=== PATIENT | female | born 1945 | race Caucasian/White ===

== ENCOUNTER 2016-05-11 | Outpatient (CLI) | payer MEDICARE, OTHER | END 2016-05-11 10:32 | disposition home or self-care (01) | DX: Z53.9 Procedure and treatment not carried out, unspecified reason (principal) ==

== ENCOUNTER 2016-05-11 10:20 | Outpatient (CLI) | payer MEDICARE, OTHER | END 2016-05-11 10:21 | disposition home or self-care (01) | DX: E78.2 Mixed hyperlipidemia (principal); Z79.899 Other long term (current) drug therapy ==

== ENCOUNTER 2016-06-28 09:35 | Outpatient (CLI) | payer MEDICARE, OTHER | END 2016-06-28 09:36 | disposition home or self-care (01) | DX: M06.9 Rheumatoid arthritis, unspecified (principal) ==

== ENCOUNTER 2016-07-05 10:24 | Outpatient (CLI) | payer MEDICARE, OTHER | END 2016-07-05 10:25 | disposition home or self-care (01) | DX: M51.36 Other intervertebral disc degeneration, lumbar region (principal); M47.896 Other spondylosis, lumbar region; M16.0 Bilateral primary osteoarthritis of hip ==

== ENCOUNTER 2016-10-11 09:21 | Outpatient (CLI) | payer MEDICARE, OTHER ==
[2016-10-11 10:09] LABS: BASOPHILS # (AUTO) 0.1 10^3/uL (0.0-0.1); BASOPHILS % (AUTO) 1.2 %; EOSINOPHILS # (AUTO) 0.2 10^3/uL (0.0-0.7); EOSINOPHILS % (AUTO) 3.4 %; HCT - HEMATOCRIT 38.9 % (37.0-47.0); HGB - HEMOGLOBIN 13.1 g/dL (12.0-16.0); LYMPHOCYTES # (AUTO) 2.2 10^3/uL (1.5-3.5); MEAN CORPUSCULAR HEMOGLOBIN 31.5 pg (27.0-31.0); MEAN CORPUSCULAR HGB CONC 33.8 g/dL (32.0-36.0); MEAN PLATELET VOLUME 7.3 fL (7.9-10.8); MONOCYTES # (AUTO) 0.5 10^3/uL (0.0-1.0); MONOCYTES % (AUTO) 9.1 %; NEUTROPHILS # (AUTO) 2.6 10^3/uL (1.5-6.6); NEUTROPHILS % (AUTO) 47.3 %; RED BLOOD COUNT 4.18 10^6/uL (4.20-5.40); RED CELL DISTRIBUTION WIDTH 14.6 % (12.0-15.0); UNCORRECTED WHITE BLOOD COUNT 5.6 x10^3/uL; WHITE BLOOD COUNT 5.6 x10^3/uL (4.8-10.8)
[2016-10-11 10:29] LABS: ALBUMIN/GLOBULIN RATIO 1.5 (1.0-2.2); BILIRUBIN,TOTAL 0.8 mg/dL (0.2-1.0); CALCIUM 9.7 mg/dL (8.5-10.3); CREATININE 0.9 mg/dL (0.4-1.0); POTASSIUM 4.3 mmol/L (3.5-5.0)
== END 2016-10-11 09:22 | disposition home or self-care (01) ==
LOC: LAB 09:21
PROVIDERS: ATTEND Internal Medicine Rheumatology
DX: M06.9 Rheumatoid arthritis, unspecified (principal)
CPT/HCPCS: 36415; 80053; 85025

== ENCOUNTER 2017-03-01 14:52 | Outpatient (CLI) | payer MEDICARE, OTHER | END 2017-03-01 14:53 | disposition home or self-care (01) | LOC: CAM 14:52 | PROVIDERS: ATTEND Internal Medicine | DX: M54.5 Low back pain (principal) | CPT/HCPCS: 97813; 97814 ==

== ENCOUNTER 2017-03-29 12:52 | Outpatient (CLI) | payer MEDICARE, OTHER ==
--- NOTE | 2017-03-30 09:20 | DEXA Report ---
DEXA SCAN: 03/29/2017 COMPARISON: None. In accordance with the International Society for Clinical Densitometry (ISCD) guidelines, data from previous exams may be reanalyzed using current recommendations and techniques. This is done to allow a more accurate basis for comparison with the current study. INDICATION: Bone mineral density screening. TECHNIQUE: Standard DEXA evaluation of the left femur and lumbar spine. Dual energy x-ray absorptiometry (DXA) was performed on a [employer] system. FINDINGS: Total proximal femur bone mineral density measures 0.949 g/cm2, which corresponds to T-score -0.5 and Z-score 0.1. WHO classification is normal. Lumbar spine bone mineral density measures 0.986 g/cm2, which corresponds to a T -score of -1.6 and Z-score of -1.1. WHO classification is osteopenia. The data for the lumbar spine is as follows: REGION BMD (g/cm/cm) T-SCORE Z-SCORE L1 0.953 -1.5 -1.0 L2 0.960 -2.0 -1.5 L3 1.034 -1.4 -0.9 L4 0.986 -1.8 -1.3 TOTAL 0.986 -1.6 -1.1 NOTE: All evaluable vertebrae are used for classification. The data for the hip is as follows: REGION BMD (g/cm/cm) T-SCORE Z-SCORE Neck 0.978 -0.4 0.5 TOTAL 0.949 -0.5 0.1 NOTE: The femoral neck or total proximal femur, whichever is lowest, is used for classification. IMPRESSION: THE WHO CLASSIFICATION BASED ON THE INTERNATIONAL REFERENCE STANDARD IS OSTEOPENIA. THE FRACTURE RISK IS INCREASED. RECOMMENDATION: Patients with diagnosis of osteoporosis or osteopenia should have regular bone mineral density assessment. For those eligible for Medicare, routine testing is allowed once every 2 years. Testing frequency can be increased for patients who have rapidly progressing disease or for those who are receiving medical therapy to restore bone mass. COMMENT: World Health Organization (WHO) definitions for osteoporosis and osteopenia: NORMAL BMD: T-score at 1.0 or higher, fracture risk is low. OSTEOPENIA BMD: T-score between 1.0 and -2.5, fracture risk is increased. OSTEOPOROSIS BMD: T-score at 2.5 or lower, fracture risk high. National Osteoporosis Foundation recommends: 1. Obtain adequate dietary calcium (at least 1200 mg per day) and vitamin D (400 -800 international units per day). 2. Participate, as appropriate, in regular weightbearing and muscle- strengthening exercise. 3. Avoid tobacco use and reduce alcohol and caffeine intake. 4. For more detailed information see the website at www.NOF.org. MTDD
== END 2017-03-29 12:53 | disposition home or self-care (01) ==
LOC: DI 12:52
PROVIDERS: ATTEND Internal Medicine Rheumatology
DX: Z13.820 Encounter for screening for osteoporosis (principal); M85.88 Other specified disorders of bone density and structure, other site; Z79.52 Long term (current) use of systemic steroids
CPT/HCPCS: 77080

== ENCOUNTER 2017-03-29 14:04 | Outpatient (CLI) | payer MEDICARE, OTHER | END 2017-03-29 14:05 | disposition home or self-care (01) | LOC: CAM 14:04 | PROVIDERS: ATTEND Internal Medicine | DX: M54.5 Low back pain (principal) | CPT/HCPCS: 97813; 97814 ==

== ENCOUNTER 2017-04-02 09:26 | Outpatient (CLI) | payer MEDICARE, OTHER ==
[2017-04-02 09:46] LABS: BASOPHILS # (AUTO) 0.1 10^3/uL (0.0-0.1); BASOPHILS % (AUTO) 1.5 %; EOSINOPHILS # (AUTO) 0.4 10^3/uL (0.0-0.7); EOSINOPHILS % (AUTO) 5.2 %; HGB - HEMOGLOBIN 13.2 g/dL (12.0-16.0); LYMPHOCYTES # (AUTO) 3.1 10^3/uL (1.5-3.5); LYMPHOCYTES % (AUTO) 43.1 %; MEAN CORPUSCULAR HEMOGLOBIN 32.6 pg (27.0-31.0); MEAN CORPUSCULAR HGB CONC 34.8 g/dL (32.0-36.0); MEAN CORPUSCULAR VOLUME 93.8 fL (81.0-99.0); MONOCYTES # (AUTO) 0.6 10^3/uL (0.0-1.0); NEUTROPHILS # (AUTO) 2.9 10^3/uL (1.5-6.6); NEUTROPHILS % (AUTO) 41.2 %; PLT - PLATELET COUNT 238 10^3/uL (130-450); RED BLOOD COUNT 4.06 10^6/uL (4.20-5.40); RED CELL DISTRIBUTION WIDTH 14.3 % (12.0-15.0); WHITE BLOOD COUNT 7.1 x10^3/uL (4.8-10.8)
[2017-04-02 10:02] LABS: ALBUMIN 4.5 g/dL (3.2-5.5); ALBUMIN/GLOBULIN RATIO 1.7 (1.0-2.2); ALKALINE PHOSPHATASE 50 IU/L (42-121); ALT ALANINE AMINOTRANSFERASE 43 IU/L (10-60); AST ASPARTATE AMINOTRANSFERASE 47 IU/L (10-42); BILIRUBIN,TOTAL 0.8 mg/dL (0.2-1.0); BUN - BLOOD UREA NITROGEN 33 mg/dL (6-20); CALCIUM 9.8 mg/dL (8.5-10.3); CARBON DIOXIDE - CO2 20 mmol/L (21-32); CHLORIDE 100 mmol/L (101-111); CHOLESTEROL 228 mg/dL; CREATININE 1.1 mg/dL (0.4-1.0); GFR - MDRD 49 (>89); GLUCOSE 123 mg/dL (70-100); HDL CHOLESTEROL 57 mg/dL; LDL CHOLESTEROL,CALCULATED 129 mg/dL; LDL/HDL RATIO 2.3 (<4.4); SODIUM 137 mmol/L (135-145); TOTAL PROTEIN 7.2 g/dL (6.7-8.2); VLDL CHOLESTEROL 42 mg/dL
[2017-04-02 10:35] LABS: HB2 TOTAL 14.1 g/dL; HEMOGLOBIN A1C 0.55 g/dL; HEMOGLOBIN A1C % 5.7 % (4.6-6.2)
== END 2017-04-02 09:27 | disposition home or self-care (01) ==
LOC: LAB 09:26
PROVIDERS: ATTEND Internal Medicine
DX: I65.29 Occlusion and stenosis of unspecified carotid artery (principal); E11.9 Type 2 diabetes mellitus without complications; I35.0 Nonrheumatic aortic (valve) stenosis; E78.5 Hyperlipidemia, unspecified; I10 Essential (primary) hypertension
CPT/HCPCS: 36415; 80053; 80061; 83036; 84443; 85025

== ENCOUNTER 2017-04-11 08:58 | Outpatient (CLI) | payer MEDICARE, OTHER | END 2017-04-11 08:59 | disposition home or self-care (01) | LOC: LAB.R 08:58 | PROVIDERS: ATTEND Internal Medicine | DX: L03.114 Cellulitis of left upper limb (principal) | CPT/HCPCS: 87640 ==

== ENCOUNTER 2017-04-17 11:29 | Outpatient (CLI) | payer MEDICARE, OTHER ==
--- NOTE | 2017-04-17 19:38 | XRAY Report ---
DATE OF SERVICE: 04/17/2017 THREE VIEW LEFT HAND: 04/17/2017 CLINICAL INDICATION: Cellulitis. COMPARISON: 08/04/2015 Frontal, lateral, oblique views of the left hand demonstrate soft tissue swelling at the fifth metacarpophalangeal joint. Osteoarthritic changes are stable. No foreign body is seen in the soft tissues. No osteolysis is seen to suggest osteomyelitis. IMPRESSION: Soft tissue swelling, but no evidence of fracture or osteomyelitis. TD: 04/17/2017 20:37
== END 2017-04-17 11:30 | disposition home or self-care (01) ==
LOC: DI 11:29
PROVIDERS: ATTEND Internal Medicine
DX: L03.114 Cellulitis of left upper limb (principal)

== ENCOUNTER 2017-05-11 09:01 | Outpatient (CLI) | payer MEDICARE, OTHER ==
[2017-05-11 09:23] LABS: BASOPHILS % (AUTO) 0.7 %; EOSINOPHILS # (AUTO) 0.5 10^3/uL (0.0-0.7); EOSINOPHILS % (AUTO) 7.8 %; HGB - HEMOGLOBIN 13.2 g/dL (12.0-16.0); LYMPHOCYTES # (AUTO) 2.9 10^3/uL (1.5-3.5); LYMPHOCYTES % (AUTO) 44.1 %; MEAN CORPUSCULAR HEMOGLOBIN 32.6 pg (27.0-31.0); MEAN CORPUSCULAR HGB CONC 34.5 g/dL (32.0-36.0); MEAN CORPUSCULAR VOLUME 94.4 fL (81.0-99.0); MEAN PLATELET VOLUME 7.1 fL (7.9-10.8); MONOCYTES # (AUTO) 0.4 10^3/uL (0.0-1.0); MONOCYTES % (AUTO) 6.6 %; NEUTROPHILS # (AUTO) 2.6 10^3/uL (1.5-6.6); NEUTROPHILS % (AUTO) 40.8 %; PLT - PLATELET COUNT 222 10^3/uL (130-450); RED BLOOD COUNT 4.05 10^6/uL (4.20-5.40); RED CELL DISTRIBUTION WIDTH 14.5 % (12.0-15.0); WHITE BLOOD COUNT 6.5 x10^3/uL (4.8-10.8)
[2017-05-11 09:39] LABS: ALBUMIN 4.4 g/dL (3.2-5.5); ALBUMIN/GLOBULIN RATIO 1.7 (1.0-2.2); ALKALINE PHOSPHATASE 64 IU/L (42-121); ALT ALANINE AMINOTRANSFERASE 36 IU/L (10-60); AST ASPARTATE AMINOTRANSFERASE 35 IU/L (10-42); BILIRUBIN,TOTAL 0.6 mg/dL (0.2-1.0); BUN - BLOOD UREA NITROGEN 24 mg/dL (6-20); CALCIUM 9.9 mg/dL (8.5-10.3); CARBON DIOXIDE - CO2 24 mmol/L (21-32); CHLORIDE 98 mmol/L (101-111); GFR - MDRD 55 (>89); GLUCOSE 132 mg/dL (70-100); SODIUM 137 mmol/L (135-145)
[2017-05-11 09:46] LABS: CRP - C-REACTIVE PROTEIN < 1.0 mg/dL (0-1.0)
== END 2017-05-11 09:02 | disposition home or self-care (01) ==
LOC: LAB 09:01
PROVIDERS: ATTEND Internal Medicine Rheumatology
DX: M05.79 Rheumatoid arthritis with rheumatoid factor of multiple sites without organ or systems involvement (principal); Z79.899 Other long term (current) drug therapy
CPT/HCPCS: 36415; 80053; 85025; 85651; 86140

== ENCOUNTER 2017-06-21 15:10 | Outpatient (CLI) | payer MEDICARE, OTHER | END 2017-06-21 15:11 | disposition home or self-care (01) | LOC: CAM 15:10 | PROVIDERS: ATTEND Internal Medicine | DX: M54.5 Low back pain (principal) | CPT/HCPCS: 97813; 97814 ==

== ENCOUNTER 2017-07-05 14:02 | Outpatient (CLI) | payer MEDICARE, OTHER | END 2017-07-05 14:03 | disposition home or self-care (01) | LOC: CAM 14:02 | PROVIDERS: ATTEND Internal Medicine | DX: M54.5 Low back pain (principal) | CPT/HCPCS: 97813; 97814 ==

== ENCOUNTER 2017-07-30 14:57 | Outpatient (CLI) | payer MEDICARE, OTHER ==
[2017-07-30 15:41] LABS: ALBUMIN 4.3 g/dL (3.2-5.5); ALBUMIN/GLOBULIN RATIO 1.5 (1.0-2.2); CALCIUM 9.3 mg/dL (8.5-10.3); CREATININE 1.2 mg/dL (0.4-1.0); TOTAL PROTEIN 7.1 g/dL (6.7-8.2)
[2017-07-30 15:45] LABS: EOSINOPHILS # (AUTO) 0.1 10^3/uL (0.0-0.7); EOSINOPHILS % (AUTO) 2.8 %; HGB - HEMOGLOBIN 13.4 g/dL (12.0-16.0); LYMPHOCYTES # (AUTO) 2.6 10^3/uL (1.5-3.5); LYMPHOCYTES % (AUTO) 58.9 %; MEAN CORPUSCULAR HEMOGLOBIN 33.1 pg (27.0-31.0); MEAN CORPUSCULAR HGB CONC 34.7 g/dL (32.0-36.0); MEAN CORPUSCULAR VOLUME 95.4 fL (81.0-99.0); MEAN PLATELET VOLUME 7.7 fL (7.9-10.8); MONOCYTES # (AUTO) 0.5 10^3/uL (0.0-1.0); MONOCYTES % (AUTO) 11.3 %; NEUTROPHILS # (AUTO) 1.1 10^3/uL (1.5-6.6); PLT - PLATELET COUNT 136 10^3/uL (130-450); RED BLOOD COUNT 4.05 10^6/uL (4.20-5.40); RED CELL DISTRIBUTION WIDTH 14.5 % (12.0-15.0); WHITE BLOOD COUNT 4.3 x10^3/uL (4.8-10.8)
[2017-07-30 15:57] LABS: BILIRUBIN,URINE NEGATIVE (NEGATIVE); GLUCOSE, URINE (UA) NEGATIVE (NEGATIVE); KETONES,URINE (UA) NEGATIVE (NEGATIVE); LEUKOCYTE ESTERASE, URINE TRACE (NEGATIVE); NITRITE,URINE NEGATIVE (NEGATIVE); OCCULT BLOOD,URINE NEGATIVE (NEGATIVE); PH,URINE 6.5 PH (5.0-7.5); PROTEIN,URINE NEGATIVE (NEGATIVE); UROBILINOGEN,URINE 0.2 (NORMAL) E.U./dL (NORMAL)
[2017-07-30 15:58] LABS: CLARITY,URINE CLEAR (CLEAR)
[2017-07-30 16:16] LABS: RBC,URINE None Seen /HPF (0-5); WBC CLUMPS,URINE PRESENT
[2017-07-30 16:17] LABS: BACTERIA,URINE Few /HPF (None Seen); CASTS, URINE 3-5 Granular Casts /LPF; MUCUS,URINE Few Strands
[2017-07-30 16:22] LABS: SQUAMOUS EPITHELIAL CELL,UR NONE SEEN (<= Few)
--- NOTE | 2017-07-30 17:27 | XRAY Report ---
TWO VIEW CHEST: 07/30/2017 CLINICAL INDICATION: Fever. FINDINGS: Frontal and lateral views of the chest demonstrate changes of previous cardiac surgery. The cardiac silhouette is not enlarged. The lungs are clear. No effusion or pneumothorax is present. IMPRESSION: POSTOPERATIVE CHANGES. NO EVIDENCE OF ACUTE CARDIOPULMONARY DISEASE. TD: 07/30/2017 17:26
== END 2017-07-30 14:58 | disposition home or self-care (01) ==
LOC: LAB 14:57
PROVIDERS: ATTEND Internal Medicine
DX: R50.9 Fever, unspecified (principal)
CPT/HCPCS: 36415; 71046; 80053; 81001; 85025; 87086

== ENCOUNTER 2017-07-31 15:12 | Outpatient (CLI) | payer MEDICARE, OTHER | END 2017-07-31 15:13 | disposition home or self-care (01) | LOC: LAB 15:12 | PROVIDERS: ATTEND Internal Medicine | DX: R50.9 Fever, unspecified (principal) | CPT/HCPCS: 36415; 87040 ==

== ENCOUNTER 2017-08-22 10:00 | Outpatient (CLI) | payer MEDICARE, OTHER ==
[2017-08-22 10:29] LABS: ALBUMIN 4.4 g/dL (3.2-5.5); ALBUMIN/GLOBULIN RATIO 1.5 (1.0-2.2); CALCIUM 9.4 mg/dL (8.5-10.3); TOTAL PROTEIN 7.3 g/dL (6.7-8.2)
[2017-08-22 10:55] LABS: BILIRUBIN,URINE NEGATIVE (NEGATIVE); GLUCOSE, URINE (UA) NEGATIVE (NEGATIVE); KETONES,URINE (UA) NEGATIVE (NEGATIVE); LEUKOCYTE ESTERASE, URINE TRACE (NEGATIVE); NITRITE,URINE NEGATIVE (NEGATIVE); OCCULT BLOOD,URINE NEGATIVE (NEGATIVE); PH,URINE 5.5 PH (5.0-7.5); PROTEIN,URINE NEGATIVE (NEGATIVE); UROBILINOGEN,URINE 0.2 (NORMAL) E.U./dL (NORMAL)
[2017-08-22 11:11] LABS: BACTERIA,URINE Rare /HPF (None Seen); CASTS, URINE 11-25 Hyaline Casts /LPF; CLARITY,URINE CLEAR (CLEAR); MUCUS,URINE Few Strands; RBC,URINE 0-5 /HPF (0-5); SQUAMOUS EPITHELIAL CELL,UR FEW Squamous (<= Few)
== END 2017-08-22 10:01 | disposition home or self-care (01) ==
LOC: LAB 10:00
PROVIDERS: ATTEND Internal Medicine Rheumatology
DX: M06.9 Rheumatoid arthritis, unspecified (principal); Z79.899 Other long term (current) drug therapy
CPT/HCPCS: 36415; 80053; 81001; 87086

== ENCOUNTER 2017-09-13 10:09 | Outpatient (CLI) | payer MEDICARE, OTHER ==
--- NOTE | 2017-09-13 17:19 | XRAY Report ---
Procedure Date: 09/13/2017 Accession Number: [id number] / [id number] Procedure: XR - Lumbar Spine 2 View CPT Code: FULL RESULT: EXAM: Lumbar Spine 2 View DATE: 09/13/2017 10:21 AM CLINICAL HISTORY: LOW BACK PAIN COMPARISON: 07/05/2016 TECHNIQUE: 2 views. FINDINGS: Alignment: Grade 1 anterior listhesis L3 on L4 and L4 on L5 Bones: No fractures or bone lesions. Disks: Mild disc space narrowing most marked L3-4 and L4-5. Facets: Early degenerative changes. Sacroiliac Joints: Degenerative changes IMPRESSION: Degenerative change lumbar spine similar to 07/05/2016. No superimposed acute findings. RADIA
== END 2017-09-13 10:10 | disposition home or self-care (01) ==
LOC: DI 10:09
PROVIDERS: ATTEND Internal Medicine
DX: M51.36 Other intervertebral disc degeneration, lumbar region (principal); M47.896 Other spondylosis, lumbar region; M43.16 Spondylolisthesis, lumbar region
CPT/HCPCS: 72100

== ENCOUNTER 2017-10-18 10:58 | Outpatient (CLI) | payer MEDICARE, OTHER ==
[2017-10-18 11:13] LABS: BASOPHILS # (AUTO) 0.1 10^3/uL (0.0-0.1); BASOPHILS % (AUTO) 1.1 %; EOSINOPHILS # (AUTO) 0.4 10^3/uL (0.0-0.7); EOSINOPHILS % (AUTO) 5.6 %; HGB - HEMOGLOBIN 13.4 g/dL (12.0-16.0); LYMPHOCYTES # (AUTO) 3.2 10^3/uL (1.5-3.5); LYMPHOCYTES % (AUTO) 47.1 %; MEAN CORPUSCULAR HEMOGLOBIN 32.2 pg (27.0-31.0); MEAN CORPUSCULAR HGB CONC 34.4 g/dL (32.0-36.0); MEAN CORPUSCULAR VOLUME 93.6 fL (81.0-99.0); MEAN PLATELET VOLUME 6.9 fL (7.9-10.8); MONOCYTES # (AUTO) 0.5 10^3/uL (0.0-1.0); MONOCYTES % (AUTO) 6.9 %; NEUTROPHILS # (AUTO) 2.7 10^3/uL (1.5-6.6); NEUTROPHILS % (AUTO) 39.3 %; PLT - PLATELET COUNT 264 10^3/uL (130-450); RED BLOOD COUNT 4.15 10^6/uL (4.20-5.40); RED CELL DISTRIBUTION WIDTH 14.4 % (12.0-15.0); WHITE BLOOD COUNT 6.9 x10^3/uL (4.8-10.8)
[2017-10-18 11:28] LABS: HEMOGLOBIN A1C 0.5 g/dL; HEMOGLOBIN A1C % 5.4 % (4.6-6.2)
[2017-10-18 11:34] LABS: ALBUMIN 4.3 g/dL (3.2-5.5); ALBUMIN/GLOBULIN RATIO 1.4 (1.0-2.2); BILIRUBIN,TOTAL 1.1 mg/dL (0.2-1.0); CALCIUM 9.7 mg/dL (8.5-10.3); TOTAL PROTEIN 7.4 g/dL (6.7-8.2)
== END 2017-10-18 10:59 | disposition home or self-care (01) ==
LOC: LAB 10:58
PROVIDERS: ATTEND Internal Medicine Rheumatology
DX: E11.9 Type 2 diabetes mellitus without complications (principal); M06.09 Rheumatoid arthritis without rheumatoid factor, multiple sites; Z79.899 Other long term (current) drug therapy
CPT/HCPCS: 36415; 80053; 83036; 85025

== ENCOUNTER 2018-02-01 10:30 | Outpatient (CLI) | payer MEDICARE, OTHER ==
[2018-02-01 10:50] LABS: BASOPHILS # (AUTO) 0.1 10^3/uL (0.0-0.1); BASOPHILS % (AUTO) 1.3 %; EOSINOPHILS # (AUTO) 0.3 10^3/uL (0.0-0.7); EOSINOPHILS % (AUTO) 5.9 %; HGB - HEMOGLOBIN 12.7 g/dL (12.0-16.0); LYMPHOCYTES # (AUTO) 2.5 10^3/uL (1.5-3.5); LYMPHOCYTES % (AUTO) 44.7 %; MEAN CORPUSCULAR HEMOGLOBIN 32.9 pg (27.0-31.0); MEAN CORPUSCULAR HGB CONC 35.1 g/dL (32.0-36.0); MEAN CORPUSCULAR VOLUME 93.7 fL (81.0-99.0); MONOCYTES # (AUTO) 0.5 10^3/uL (0.0-1.0); MONOCYTES % (AUTO) 8.3 %; NEUTROPHILS # (AUTO) 2.3 10^3/uL (1.5-6.6); NEUTROPHILS % (AUTO) 39.8 %; PLT - PLATELET COUNT 236 10^3/uL (130-450); RED BLOOD COUNT 3.86 10^6/uL (4.20-5.40); RED CELL DISTRIBUTION WIDTH 14.9 % (12.0-15.0); WHITE BLOOD COUNT 5.7 x10^3/uL (4.8-10.8)
[2018-02-01 11:11] LABS: ALBUMIN 4.3 g/dL (3.2-5.5); ALBUMIN/GLOBULIN RATIO 1.7 (1.0-2.2); BILIRUBIN,TOTAL 1.1 mg/dL (0.2-1.0); CALCIUM 9.5 mg/dL (8.5-10.3); CREATININE 0.9 mg/dL (0.4-1.0); TOTAL PROTEIN 6.9 g/dL (6.7-8.2)
[2018-02-01 11:23] LABS: INR 3.4 (0.8-1.2); PT - PROTHROMBIN TIME 37.8 secs (9.9-12.6)
== END 2018-02-01 10:31 | disposition home or self-care (01) ==
LOC: LAB 10:30
PROVIDERS: ATTEND Internal Medicine
DX: Z95.2 Presence of prosthetic heart valve (principal); Z79.01 Long term (current) use of anticoagulants; M06.09 Rheumatoid arthritis without rheumatoid factor, multiple sites; Z79.899 Other long term (current) drug therapy
CPT/HCPCS: 36415; 80053; 85025; 85610

== ENCOUNTER 2018-04-17 11:17 | Outpatient (CLI) | payer MEDICARE, OTHER ==
[2018-04-17 11:36] LABS: BASOPHILS % (AUTO) 0.8 %; EOSINOPHILS # (AUTO) 0.3 10^3/uL (0.0-0.7); EOSINOPHILS % (AUTO) 4.4 %; HGB - HEMOGLOBIN 13.4 g/dL (12.0-16.0); LYMPHOCYTES # (AUTO) 2.8 10^3/uL (1.5-3.5); LYMPHOCYTES % (AUTO) 43.7 %; MEAN CORPUSCULAR HEMOGLOBIN 31.6 pg (27.0-31.0); MEAN CORPUSCULAR HGB CONC 34.1 g/dL (32.0-36.0); MEAN CORPUSCULAR VOLUME 92.6 fL (81.0-99.0); MEAN PLATELET VOLUME 6.8 fL (7.9-10.8); MONOCYTES # (AUTO) 0.6 10^3/uL (0.0-1.0); MONOCYTES % (AUTO) 8.8 %; NEUTROPHILS # (AUTO) 2.7 10^3/uL (1.5-6.6); NEUTROPHILS % (AUTO) 42.3 %; PLT - PLATELET COUNT 249 10^3/uL (130-450); RED BLOOD COUNT 4.24 10^6/uL (4.20-5.40); RED CELL DISTRIBUTION WIDTH 14.3 % (12.0-15.0); WHITE BLOOD COUNT 6.4 x10^3/uL (4.8-10.8)
[2018-04-17 11:59] LABS: ALBUMIN 4.1 g/dL (3.2-5.5); ALBUMIN/GLOBULIN RATIO 1.3 (1.0-2.2); BILIRUBIN,TOTAL 0.8 mg/dL (0.2-1.0); CALCIUM 9.3 mg/dL (8.5-10.3); CREATININE 0.9 mg/dL (0.4-1.0); TOTAL PROTEIN 7.2 g/dL (6.7-8.2)
[2018-04-17 12:03] LABS: CHOLESTEROL 202 mg/dL; HDL CHOLESTEROL 67 mg/dL; LDL CHOLESTEROL,CALCULATED 95 mg/dL; LDL/HDL RATIO 1.4 (<4.4); VLDL CHOLESTEROL 40 mg/dL
[2018-04-18 19:45] LABS: HB2 TOTAL 13.6 g/dL; HEMOGLOBIN A1C 0.5 g/dL; HEMOGLOBIN A1C % 5.5 % (4.6-6.2)
== END 2018-04-17 11:18 | disposition home or self-care (01) ==
LOC: LAB 11:17
PROVIDERS: ATTEND Internal Medicine Rheumatology
DX: M06.09 Rheumatoid arthritis without rheumatoid factor, multiple sites (principal); E11.9 Type 2 diabetes mellitus without complications; I65.29 Occlusion and stenosis of unspecified carotid artery; Z79.899 Other long term (current) drug therapy; E78.5 Hyperlipidemia, unspecified; I10 Essential (primary) hypertension
CPT/HCPCS: 36415; 80053; 80061; 83036; 83721; 85025

== ENCOUNTER 2018-06-24 10:05 | Outpatient (CLI) | payer MEDICARE, OTHER | END 2018-06-24 10:06 | disposition home or self-care (01) | LOC: SC 10:05 | PROVIDERS: ATTEND Internal Medicine Pulmonary Disease | DX: G47.33 Obstructive sleep apnea (adult) (pediatric) (principal); E66.01 Morbid (severe) obesity due to excess calories; Z68.42 Body mass index [BMI] 45.0-49.9, adult | CPT/HCPCS: 99203; G0463; 99212 ==

== ENCOUNTER 2018-06-30 19:22 | Outpatient (CLI) | payer MEDICARE, OTHER | END 2018-06-30 19:23 | disposition home or self-care (01) | LOC: SC 19:22 | PROVIDERS: ATTEND Internal Medicine Pulmonary Disease | DX: G47.33 Obstructive sleep apnea (adult) (pediatric) (principal) | CPT/HCPCS: 95810 ==

== ENCOUNTER 2018-07-31 09:09 | Outpatient (CLI) | payer MEDICARE, OTHER | END 2018-07-31 09:10 | disposition home or self-care (01) | LOC: SC 09:09 | PROVIDERS: ATTEND Nurse Practitioner Family | DX: G47.33 Obstructive sleep apnea (adult) (pediatric) (principal) | CPT/HCPCS: 99214; G0463; 99212 ==

== ENCOUNTER 2018-08-12 10:58 | Outpatient (CLI) | payer MEDICARE, OTHER ==
[2018-08-12 11:25] LABS: BASOPHILS # (AUTO) 0.1 10^3/uL (0.0-0.1); BASOPHILS % (AUTO) 1.8 %; EOSINOPHILS # (AUTO) 0.3 10^3/uL (0.0-0.7); EOSINOPHILS % (AUTO) 5.2 %; HGB - HEMOGLOBIN 12.7 g/dL (12.0-16.0); LYMPHOCYTES # (AUTO) 2.1 10^3/uL (1.5-3.5); LYMPHOCYTES % (AUTO) 40.6 %; MEAN CORPUSCULAR HGB CONC 34.2 g/dL (32.0-36.0); MEAN CORPUSCULAR VOLUME 96.4 fL (81.0-99.0); MEAN PLATELET VOLUME 6.7 fL (7.9-10.8); MONOCYTES # (AUTO) 0.5 10^3/uL (0.0-1.0); MONOCYTES % (AUTO) 10.3 %; NEUTROPHILS # (AUTO) 2.2 10^3/uL (1.5-6.6); NEUTROPHILS % (AUTO) 42.1 %; PLT - PLATELET COUNT 206 10^3/uL (130-450); RED BLOOD COUNT 3.84 10^6/uL (4.20-5.40); RED CELL DISTRIBUTION WIDTH 14.5 % (12.0-15.0); WHITE BLOOD COUNT 5.3 x10^3/uL (4.8-10.8)
[2018-08-12 11:39] LABS: ALBUMIN 4.2 g/dL (3.2-5.5); ALBUMIN/GLOBULIN RATIO 1.6 (1.0-2.2); BILIRUBIN,TOTAL 0.8 mg/dL (0.2-1.0); CALCIUM 9.3 mg/dL (8.5-10.3); TOTAL PROTEIN 6.9 g/dL (6.7-8.2)
== END 2018-08-12 10:59 | disposition home or self-care (01) ==
LOC: LAB 10:58
PROVIDERS: ATTEND Internal Medicine Rheumatology
DX: M06.09 Rheumatoid arthritis without rheumatoid factor, multiple sites (principal); Z79.899 Other long term (current) drug therapy
CPT/HCPCS: 36415; 80053; 85025

== ENCOUNTER 2018-11-13 08:43 | Outpatient (CLI) | payer MEDICARE, OTHER ==
[2018-11-13 09:15] LABS: ALBUMIN 4.5 g/dL (3.2-5.5); ALBUMIN/GLOBULIN RATIO 1.8 (1.0-2.2); BILIRUBIN,TOTAL 0.6 mg/dL (0.2-1.0); CALCIUM 9.5 mg/dL (8.5-10.3); CREATININE 1.1 mg/dL (0.4-1.0)
[2018-11-13 09:37] LABS: HB2 TOTAL 13.2 g/dL; HEMOGLOBIN A1C 0.46 g/dL; HEMOGLOBIN A1C % 5.3 % (4.6-6.2)
[2018-11-13 10:00] LABS: BASOPHILS # (AUTO) 0.1 10^3/uL (0.0-0.1); BASOPHILS % (AUTO) 1.2 %; EOSINOPHILS # (AUTO) 0.3 10^3/uL (0.0-0.7); EOSINOPHILS % (AUTO) 4.8 %; HGB - HEMOGLOBIN 12.4 g/dL (12.0-16.0); LYMPHOCYTES # (AUTO) 2.5 10^3/uL (1.5-3.5); LYMPHOCYTES % (AUTO) 40.8 %; MEAN CORPUSCULAR HEMOGLOBIN 32.3 pg (27.0-31.0); MEAN CORPUSCULAR HGB CONC 32.9 g/dL (32.0-36.0); MEAN CORPUSCULAR VOLUME 98.2 fL (81.0-99.0); MEAN PLATELET VOLUME 9.3 fL (7.9-10.8); MONOCYTES # (AUTO) 0.6 10^3/uL (0.0-1.0); MONOCYTES % (AUTO) 9.2 %; NEUTROPHILS # (AUTO) 2.7 10^3/uL (1.5-6.6); NEUTROPHILS % (AUTO) 43.7 %; PLT - PLATELET COUNT 223 10^3/uL (130-450); RED BLOOD COUNT 3.84 10^6/uL (4.20-5.40); RED CELL DISTRIBUTION WIDTH 14.3 % (12.0-15.0); WHITE BLOOD COUNT 6.1 x10^3/uL (4.8-10.8)
== END 2018-11-13 08:44 | disposition home or self-care (01) ==
LOC: LAB 08:43
PROVIDERS: ATTEND Internal Medicine Rheumatology
DX: M06.09 Rheumatoid arthritis without rheumatoid factor, multiple sites (principal); E11.9 Type 2 diabetes mellitus without complications; Z79.899 Other long term (current) drug therapy
CPT/HCPCS: 36415; 80053; 83036; 85025

== ENCOUNTER 2018-12-26 11:03 | Outpatient (CLI) | payer MEDICARE, OTHER ==
[2018-12-26 12:30] VITALS: BP 137/70
--- NOTE | 2018-12-26 12:30 | SLEEP CARE CONSULTATION ---
Information from patient questionnaire entered by Soha Stevens. I have reviewed and concur with the information entered by Soha Stevens. This document represents the service I personally performed and the decisions made by me, Sophia Jasmine RN, MSN, FLYER [employer]KER. History of Present Illness Previous diagnosis: Severe, Obstructive Sleep Apnea-Hypopnea Syndrome AHI: 61.6 Reason for CPAP/BiPAP follow up: first compliance after device update Equipment type: CPAP Equipment obtained from: [facility] Mask style: Full face Backup mask available: Yes Last cushion change: a month ago CPAP Compliance Data - Data Reviewed with Patient Average duration of nightly device use: 8.9 Compliance rate %: 100 Current pressure setting (cmH2O): 4-15 Average residual AHI: 3.2 Subjective Patient concerns: reports: dry mouth, nose, throat. denies: aerophagia, mask discomfort, air blowing in eyes, mask leak noise, condensation in mask/hose, nasal congestion, epistaxis Observed to snore while using device: No Current pressure setting perceived as: comfortable On therapy, patient: reports: sleeping better, awakening more refreshed, being more awake and alert during the day, more rested overall. denies: drowsiness while driving Initial [place] Sleepiness Scale score: 6 Current [place] Sleepiness Scale score: 4 Allergies and Home Medications Known drug allergies: Yes (see below) Home medication list reviewed: Yes Allergy and home medication list: Medication Name (generic/name brand) Strength & Dosage Metformin HCL 500mg tab one twice daily Metoprolol Tartrate 50mg tab 1.5 twice daily Losartan Potassium 50mg tab one twice daily Amlodipine Besylate 5mg tab one daily Triamterene-HCTZ 37.5-25mg tab one daily Methotrexate 2.5mg tab six every week Rosuvastatin Calcium 5mg tab one every other day Humira 40 mg/0.8 ml SQ Prefilled Kit One injection every two weeks Warfarin Sodium 5mg tab as directed Sumatriptan Succinate 25mg tab as directed as needed ProAir HFA 108 (90 base) mcg/act Aerolol One-two puffs every 4-6hr as needed Gabapentin 100mg cap 1 am & noon & 3 at bedtime Folic Acid 1mg tab three daily Omeprazole 20mg cap one daily Aspir-Low 81mg tab one daily Multi-Vitamin Tab one daily Ceterizine 10mg tab one daily Fe Tabs 325 (65Fe) tab one daily Calcium 500mg tab one daily Ibuprofen 200mg tab one-two as needed Tylenol Extra Strength 500mg tab one-tow every 6-8hr as needed Flonase Nasal [place] One spray each nostril daily as needed Plaquenil 100mg twice daily. Allergy List Statins Meperidine Lisinopril Review of Systems Review of systems same as previous: Yes Physical Exam Blood Pressure: 137/70 Cuff size: long Heart Rate: 58 O2 Saturation: 97 Impression and Plan 1. Obstructive Sleep Apnea-Hypopnea Syndrome, very severe, with good treatment compliance and good apnea control. On CPAP therapy, the patient has better sleep quality and is more rested overall. Since her median pressure is 8 and her 95th percentile is 11, I will change her autoCPAP pressur to [id number]. She is to contact me if the pressure change uncomfortable. For oral dryness, I showed her how to change the humidity setting to manual ons sample device and adjust as needed. She already adjusted the heated hose and discussed rationale for increasing if condensation. The mask has started to feel looser and patient called [facility] to replace. She is aware of how often to get supplies. Patient's apnea severity and rationale for treatment to reduce apnea, improve sleep q uality and reduce cardiovascular and cerebrovascular events was reviewed. I also reviewed the benefit of consistent device use of CPAP for hypertension, cardiac disease * * Change CPAP pressure to 8-13 cmH2O * Notify me if snoring with mask or feeling that the pressure is too much or too little * Attempt to lose weight * Return for follow up in 1 year , or sooner if concerns arise . I spent 100% of this 20 minute visit face to face with the patient with greater than 50% of this was spent time counseling the patient and coordination of care.
== END 2018-12-26 11:04 | disposition home or self-care (01) ==
LOC: SC 11:03
PROVIDERS: ATTEND Nurse Practitioner Family
DX: G47.33 Obstructive sleep apnea (adult) (pediatric) (principal)
CPT/HCPCS: 99213; G0463; 99212

== ENCOUNTER 2019-04-18 11:53 | Outpatient (CLI) | payer MEDICARE, OTHER ==
[2019-04-18 12:25] LABS: BASOPHILS # (AUTO) 0.1 10^3/uL (0.0-0.1); BASOPHILS % (AUTO) 1.6 %; EOSINOPHILS # (AUTO) 0.5 10^3/uL (0.0-0.7); EOSINOPHILS % (AUTO) 10.5 %; HGB - HEMOGLOBIN 12.9 g/dL (12.0-16.0); LYMPHOCYTES # (AUTO) 2.1 10^3/uL (1.5-3.5); LYMPHOCYTES % (AUTO) 42.1 %; MEAN CORPUSCULAR HEMOGLOBIN 33.3 pg (27.0-31.0); MEAN CORPUSCULAR VOLUME 97.9 fL (81.0-99.0); MEAN PLATELET VOLUME 8.9 fL (7.9-10.8); MONOCYTES # (AUTO) 0.4 10^3/uL (0.0-1.0); MONOCYTES % (AUTO) 8.7 %; NEUTROPHILS # (AUTO) 1.8 10^3/uL (1.5-6.6); NEUTROPHILS % (AUTO) 36.9 %; PLT - PLATELET COUNT 203 10^3/uL (130-450); RED BLOOD COUNT 3.87 10^6/uL (4.20-5.40); RED CELL DISTRIBUTION WIDTH 14.3 % (12.0-15.0)
[2019-04-18 12:41] LABS: ALBUMIN 4.4 g/dL (3.2-5.5); ALBUMIN/GLOBULIN RATIO 1.6 (1.0-2.2); ALKALINE PHOSPHATASE 53 IU/L (42-121); ALT ALANINE AMINOTRANSFERASE 29 IU/L (10-60); AST ASPARTATE AMINOTRANSFERASE 31 IU/L (10-42); BILIRUBIN,TOTAL 1.1 mg/dL (0.2-1.0); BUN - BLOOD UREA NITROGEN 22 mg/dL (6-20); CALCIUM 9.6 mg/dL (8.5-10.3); CARBON DIOXIDE - CO2 25 mmol/L (21-32); CHLORIDE 101 mmol/L (101-111); CREATININE 1.1 mg/dL (0.4-1.0); GFR - MDRD 49 (>89); GLUCOSE 121 mg/dL (70-100); SODIUM 138 mmol/L (135-145); TOTAL PROTEIN 7.2 g/dL (6.7-8.2)
[2019-04-18 12:46] LABS: CRP - C-REACTIVE PROTEIN < 1.0 mg/dL (0-1.0)
[2019-04-18 13:36] LABS: DIFFERENTIAL COMMENT MANUAL=AUTO DIFF
== END 2019-04-18 11:54 | disposition home or self-care (01) ==
LOC: LAB 11:53
PROVIDERS: ATTEND Internal Medicine Rheumatology
DX: M06.09 Rheumatoid arthritis without rheumatoid factor, multiple sites (principal); Z79.899 Other long term (current) drug therapy
CPT/HCPCS: 36415; 80053; 85025; 85651; 86140

== ENCOUNTER 2019-10-01 10:31 | Outpatient (CLI) | payer MEDICARE, OTHER | END 2019-10-01 10:32 | disposition home or self-care (01) | LOC: LAB 10:31 | PROVIDERS: ATTEND Family Medicine | DX: Z11.59 Encounter for screening for other viral diseases (principal) | CPT/HCPCS: 81599 ==

== ENCOUNTER 2019-10-06 11:13 | Outpatient (CLI) | payer MEDICARE, OTHER ==
[2019-10-06 11:33] LABS: BASOPHILS # (AUTO) 0.1 10^3/uL (0.0-0.1); BASOPHILS % (AUTO) 1.6 %; EOSINOPHILS # (AUTO) 0.4 10^3/uL (0.0-0.7); EOSINOPHILS % (AUTO) 5.1 %; HGB - HEMOGLOBIN 13.4 g/dL (12.0-16.0); LYMPHOCYTES # (AUTO) 2.4 10^3/uL (1.5-3.5); LYMPHOCYTES % (AUTO) 35.5 %; MEAN CORPUSCULAR HEMOGLOBIN 33.8 pg (27.0-31.0); MEAN CORPUSCULAR HGB CONC 34.4 g/dL (32.0-36.0); MEAN CORPUSCULAR VOLUME 98.5 fL (81.0-99.0); MONOCYTES # (AUTO) 0.8 10^3/uL (0.0-1.0); MONOCYTES % (AUTO) 11.3 %; NEUTROPHILS # (AUTO) 3.2 10^3/uL (1.5-6.6); NEUTROPHILS % (AUTO) 46.2 %; PLT - PLATELET COUNT 221 10^3/uL (130-450); RED BLOOD COUNT 3.96 10^6/uL (4.20-5.40); RED CELL DISTRIBUTION WIDTH 14.3 % (12.0-15.0); WHITE BLOOD COUNT 6.8 x10^3/uL (4.8-10.8)
[2019-10-06 11:50] LABS: ALBUMIN 4.5 g/dL (3.2-5.5); ALKALINE PHOSPHATASE 63 IU/L (42-121); ALT ALANINE AMINOTRANSFERASE 44 IU/L (10-60); AST ASPARTATE AMINOTRANSFERASE 46 IU/L (10-42); BUN - BLOOD UREA NITROGEN 17 mg/dL (6-20); CALCIUM 9.4 mg/dL (8.5-10.3); CARBON DIOXIDE - CO2 24 mmol/L (21-32); CHLORIDE 99 mmol/L (101-111); CREATININE 0.9 mg/dL (0.4-1.0); GLUCOSE 127 mg/dL (70-100); SODIUM 136 mmol/L (135-145); TOTAL PROTEIN 6.7 g/dL (6.7-8.2)
[2019-10-06 12:13] LABS: CRP - C-REACTIVE PROTEIN < 1.0 mg/dL (0-1.0)
== END 2019-10-06 11:14 | disposition home or self-care (01) ==
LOC: LAB 11:13
PROVIDERS: ATTEND Internal Medicine Rheumatology
DX: M06.09 Rheumatoid arthritis without rheumatoid factor, multiple sites (principal); Z79.899 Other long term (current) drug therapy
CPT/HCPCS: 36415; 80053; 85025; 85651; 86140

== ENCOUNTER 2019-10-15 08:00 | Outpatient (CLI) | payer MEDICARE, OTHER | END 2019-10-15 23:59 | disposition home or self-care (01) | LOC: LAB.WCP 08:00 | PROVIDERS: ATTEND Nurse Practitioner | DX: Z95.2 Presence of prosthetic heart valve (principal); Z79.01 Long term (current) use of anticoagulants ==

== ENCOUNTER 2020-01-07 11:22 | Outpatient (CLI) | payer MEDICARE, OTHER ==
--- NOTE | 2020-01-07 12:23 | SLEEP CARE CONSULTATION ---
Information from patient questionnaire entered by Soha Stevens. I have reviewed and concur with the information entered by Soha Stevens. This document represents the service I personally performed and the decisions made by me, Sophia Jasmine, RN, MSN, TRANSITION COACH. History of Present Illness Service Date and Time: 01/07/2020 1122 Previous diagnosis: Very Severe, Obstructive Sleep Apnea-Hypopnea Syndrome AHI: 61.6 (in 2019) Reason for follow up: annual (last seen 2019) Equipment type: CPAP Equipment obtained from: [employer] (getting supplies as needed after initial set up) Mask style: Full face Backup mask available: Yes (old ) Last cushion change: about a month ago Prior sleep studies: Yes Year and Where: 2018 - [facility] , 2004 in [place], [place] Type of Sleep Study: Polysomnography CPAP Compliance Data - Data Reviewed with Patient Average duration of nightly device use: 9 Compliance rate %: 100 (180 days) Current pressure setting (cmH2O): 8-13 Humidity settin Average residual AHI: 2.7 Subjective Patient concerns: reports: air blowing in eyes (every night wakes to adjust mask and resolves some of the time. ), mask leak noise, dry mouth, nose, throat (mild dry mouth most nights but is less with adjustment of humidity), other (awakens after 1-2 hours for unknown reason, uses bathroom and if unable to return to sleep right away she will leave bed and read a hour . this has been for several years and occurs most night. She feels rested when she awakens. wake 6-6:30 am and bedtime 11pm and reads an hour before CPAP use. ). denies: aerophagia, mask discomfort, condensation in mask/hose, nasal congestion, epistaxis Observed to snore while using device: No Current pressure setting perceived as: comfortable On therapy, patient: reports: sleeping better (cannot sleep without it ), awakening more refreshed, being more awake and alert during the day, more rested overall. denies: drowsiness while driving Initial [place] Sleepiness Scale score: 6 (in 2019) Current [place] Sleepiness Scale score: 6 Allergies and Home Medications Known drug allergies: No Home medication list reviewed: No (no changes) Physical Exam Blood Pressure: 140/70 Cuff size: long Heart Rate: 58 O2 Saturation: 98 Height: 5 ft 3 in Weight: 258 lb 9.6 oz Body Mass Index: 45.8 BMI Classification: Morbidly Obese Impression and Plan 1. Obstructive Sleep Apnea-Hypopnea Syndrome, very severe, with good treatment compliance and good apnea control. On CPAP therapy, the patient has better sleep quality and is more rested overall. Mask refitting to reduce mask leaks into eyes and sleep disruption. Mask styles shown on display shelves. She is advised to also look online to see if any other styles look better to her and to discuss with [facility] before driving to visit to ensure mask style available. In addition, if this mask is not better than current mask, she is to contact [facility] right away and before 30 days so it can be replaced. Perhaps her mask leaks is what is waking her in the night. For her insomnia, she is practicing bedtime ritual and proper methods to return to sleep. I offered a sleep diary for further evaluation and she declined. Oral dryness can be reduced by adjustin g humidity setting higher or heated hose lower or by adjusting both settings with rationale explaining why to change. She has tried in past but has had condensation. She is advised to try again to reduce oral dryness and to look up [employer] site on how to change settings. Patient advised that chronic oral dryness can affect dental health and advised to follow up with dentist. In addition, there are oral dryness products that can be used to reduce dryness and she can discuss best option with dentist. Patient states she has seen dentist with no oral problems. Patient's apnea severity and rationale for treatment to reduce apnea, improve sleep quality and reduce cardiovascular and cerebrovascular events was reviewed. I also reviewed the benefit of consistent device use of CPAP for hypertension. Patient is morbidly obese and associated health risks discussed. Patient is not planning on losing weight. * Continue auto CPAP pressure at 8-13 cmH2O * Implement methods to reduce oral dryness * Mask refitting. * Notify me if snoring with mask or feeling that the pressure is too much or too little * Attempt to lose weight * Call this office if any problems using CPAP * Return for follow up in 1 year , or sooner if concerns arise Counseling Topics: Weight loss health impact Visit Type: In Office Time Spent with Patient (minutes): 30 Provider Statement: I spent 100% of the Face to Face Visit with the patient with greater than 50% spent counseling the patient and coordination of care.
[2020-01-07 12:24] VITALS: BP 140/70
== END 2020-01-07 11:23 | disposition home or self-care (01) ==
LOC: SC 11:22
PROVIDERS: ATTEND Nurse Practitioner Family
DX: G47.33 Obstructive sleep apnea (adult) (pediatric) (principal); E66.01 Morbid (severe) obesity due to excess calories; Z68.42 Body mass index [BMI] 45.0-49.9, adult
CPT/HCPCS: 99214; G0463; 99212

== ENCOUNTER 2020-02-06 20:17 | Inpatient (IN) | payer MEDICARE, OTHER ==
[2020-02-06] MEDS ORDERED: SODIUM CHLORIDE 0.9% 1,000 ML IV STA ×2 (21:56→23:53)
--- NOTE | 2020-02-06 22:02 | ED Physician Documentation ---
PD HPI HEADACHE - Stated complaint Stated Complaint: dizzy,headache, muscle ache - Chief complaint Chief Complaint: General - History obtained from History obtained from: Patient - History of Present Illness Timing - onset: Today Timing - onset during: Rest Timing - duration: Hours Timing - details: Gradual onset, Still present Quality: Aching Associated symptoms: Stiff neck, Other (pain in shoulders and lurching gait). No: Fever, Nausea, Vomiting, Numbness, Syncope, Seizure, Eye pain, Vision changes Improved by: Rest Contributing factors: Anticoagulated Similar symptoms before: Has not had sx before Recently seen: Not recently seen - Additional information Additional information: 74-year-old female with a mechanical aortic valve for the past 16 years is on Coumadin. Today she has developed a headache that is to the top of her head and some pain to the back of her neck and down her shoulders and she has developed a lurching gait. She is a diabetic on Metformin and she does not check her sugars frequently. She denies any significant nocturia. She does have diarrhea about once per week. After taking her Metformin. She last had her INR checked about 2 weeks ago and it was normal at that time. She states the pain is not severe it is about a 4 out of 10 and she is more concerned that she has this difficulty with getting up and walking. Review of Systems Constitutional: reports: Chills. denies: Fever Eyes: denies: Decreased vision Ears: denies: Ear pain Nose: denies: Rhinorrhea / runny nose, Congestion Throat: denies: Dental pain / toothache, Sore throat Cardiac: denies: Chest pain / pressure, Palpitations Respiratory: denies: Dyspnea, Cough GI: denies: Abdominal Pain, Nausea, Vomiting, Diarrhea : denies: Dysuria, Frequency Skin: denies: Rash Musculoskeletal: denies: Neck pain, Back pain, Extremity pain PD PAST MEDICAL HISTORY - Past Medical History Cardiovascular: Hypertension, High cholesterol, Peripheral Vascular Disease, Valve disorder Respiratory: None Neuro: Migraines Endocrine/Autoimmune: Type 2 diabetes GI: GERD 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 : None HEENT: None Derm: None - Past Surgical History Past Surgical History: Yes General: Colonoscopy Ortho: Knee replacement /CONCRETE VAULT MAKER: Hysterectomy Cardiovascular: Valve replacement, Vascular surgery - Present Medications Home Medications: Ambulatory Orders Medication Instructions Recorded Confirmed Amlodipine Besylate 5 mg PO DAILY 02/15/13 04/28/15 Aspirin [Aspir 81] 81 mg PO DAILY 02/15/13 04/28/15 Cetirizine [ZyrTEC] 10 mg PO DAILY 02/15/13 04/28/15 Losartan [Cozaar] 50 mg PO BID 02/15/13 04/28/15 Metformin HCl [Glucophage Xr] 500 mg PO BID 02/15/13 04/28/15 Methylcellulose [Citrucel] 1,000 mg PO DAILY 02/15/13 04/28/15 Metoprolol Tartrate [Lopressor] 75 mg PO BID 02/15/13 04/28/15 Multivitamin [Multi-Vitamin Daily] 1 each PO DAILY 02/15/13 04/28/15 Omeprazole [Prilosec] 20 mg PO DAILY 02/15/13 04/28/15 Rosuvastatin Calcium [Crestor] 5 mg PO DAILY 02/15/13 04/28/15 Triamterene/Hydrochlorothiazid 0.5 each PO QDAC 02/15/13 04/28/15 [Maxzide 75 mg-50 mg Tablet] Warfarin Sodium [Coumadin] 5 mg PO 5XD 02/15/13 04/28/15 Enoxaparin [Lovenox] 120 mg SUBQ Q12H 04/28/15 04/28/15 - Allergies Allergies/Adverse Reactions: Allergies Allergy/AdvReac Type Severity Reaction Status Date / Time No Known Drug Allergies Allergy Verified 02/06/20 20:27 - Social History Does the pt smoke?: No Smoking Status: Never smoker Does the pt drink ETOH?: No Does the pt have substance abuse?: No - Immunizations Immunizations are current?: Yes - POLST Patient has POLST: No PD ED PE NORMAL - Vitals Vital signs reviewed: Yes (hypertensive ) - General General: Alert and oriented X 3, No acute distress, Well developed/nourished - HEENT HEENT: Atraumatic, PERRL, EOMI - Neck Neck: Supple, no meningeal sign, No bony TTP - Cardiac Cardiac: RRR, Other (end systolic click) - Respiratory Respiratory: No respiratory distress, Other (diminished breath sounds ) - Abdomen Abdomen: Soft, Non tender - Back Back: No CVA TTP, No spinal TTP - Derm Derm: Normal color, Warm and dry, No rash - Extremities Extremities: No deformity, No edema - Neuro Neuro: Alert and oriented X 3, rouge sifter and miller 2-12 intact, No motor deficit, No sensory deficit, Normal speech Eye Opening: Spontaneous Motor: Obeys Commands Verbal: Oriented GCS Score: 15 - Psych Psych: Normal mood, Normal affect Results - Vitals Vitals: Vital Signs - 24 hr 02/06/20 02/06/20 02/06/20 20:27 20:31 22:29 Temperature 37.3 C 37.3 C 37.3 C Heart Rate 84 84 82 Respiratory 18 16 18 Rate Blood Pressure 123/98 H 123/98 H 122/89 H O2 Saturation 96 98 98 02/06/20 02/07/20 23:19 01:00 Temperature 38.5 C H 38.6 C H Heart Rate 81 100 Respiratory 20 16 Rate Blood Pressure 123/84 H 111/72 O2 Saturation 100 98 Oxygen O2 Source Room air - Labs Labs: Laboratory Tests 02/06/20 02/06/20 02/06/20 22:10 22:10 22:10 WBC 20.4 H RBC 3.67 L Hgb 12.5 Hct 37.4 MCV 101.9 H MCH 34.1 H MCHC 33.4 RDW 14.3 Plt Count 204 MPV 9.6 Neut # (Auto) 17.0 H Lymph # (Auto) 2.1 Haines # (Auto) 1.1 H Eos # (Auto) 0.0 Baso # (Auto) 0.1 Absolute Nucleated RBC 0.00 Band Neuts % (Manual) Not Reportable Abnorm Lymph % (Manual) Not Reportable Nucleated RBC % 0.0 Neutrophils # (Manual) Not Reportable Lymphocytes # (Manual) Not Reportable Monocytes # (Manual) Not Reportable Eosinophils # (Manual) Not Reportable Basophils # (Manual) Not Reportable Manual Slide Review Indicated Platelet Estimate NORMAL (130-450,000) Platelet Morphology NORMAL APPEARANCE RBC Morph Micro Appear NORMAL APPEARANCE PT INR Sodium 136 Potassium 4.4 Chloride 99 L Carbon Dioxide 23 Anion Gap 14.0 H BUN 30 H Creatinine 1.5 H Estimated GFR (MDRD) 34 L Glucose 136 H Lactic Acid 2.6 H Calcium 9.2 Total Bilirubin 1.1 H AST 39 ALT 36 Alkaline Phosphatase 49 Total Protein 7.1 Albumin 4.2 Globulin 2.9 Albumin/Globulin Ratio 1.4 Lipase 23 Urine Color Urine Clarity Urine pH Ur Specific [place] Urine Protein Urine Glucose (UA) Urine Ketones Urine Occult Blood Urine Nitrite Urine Bilirubin Urine Urobilinogen Ur Leukocyte Esterase Ur Microscopic Review Urine Culture Comments 02/06/20 02/06/20 22:29 22:40 WBC RBC Hgb Hct MCV MCH MCHC RDW Plt Count MPV Neut # (Auto) Lymph # (Auto) Haines # (Auto) Eos # (Auto) Baso # (Auto) Absolute Nucleated RBC Band Neuts % (Manual) Abnorm Lymph % (Manual) Nucleated RBC % Neutrophils # (Manual) Lymphocytes # (Manual) Monocytes # (Manual) Eosinophils # (Manual) Basophils # (Manual) Manual Slide Review Platelet Estimate Platelet Morphology RBC Morph Micro Appear PT 35.9 H INR 3.5 H Sodium Potassium Chloride Carbon Dioxide Anion Gap BUN Creatinine Estimated GFR (MDRD) Glucose Lactic Acid Calcium Total Bilirubin AST ALT Alkaline Phosphatase Total Protein Albumin Globulin Albumin/Globulin Ratio Lipase Urine Color YELLOW Urine Clarity CLEAR Urine pH 6.0 Ur Specific [place] 1.015 Urine Protein NEGATIVE Urine Glucose (UA) NEGATIVE Urine Ketones NEGATIVE Urine Occult Blood NEGATIVE Urine Nitrite NEGATIVE Urine Bilirubin NEGATIVE Urine Urobilinogen 0.2 (NORMAL) Ur Leukocyte Esterase NEGATIVE Ur Microscopic Review NOT INDICATED Urine Culture Comments NOT INDICATED - Rads (name of study) CT head Radiology: Prelim report reviewed (Impression: No acute intracranial findings. Nonemergent/incidental findings in the report.), EMP read indepedently, See rad report chest Radiology: Prelim report reviewed (Impression: No acute findings.), EMP read indepedently (ground glass infiltrate LLL), See rad report Procedures - IVC sono (time) 2150 Bedside IVC sono: IVC measures (cm) (0.72), Low CVP, Dehydration (est 2+ liter deficit) PD MEDICAL DECISION MAKING - ED course Complexity details: reviewed old records, reviewed results, re-evaluated patient, considered differential, d/w patient ED course: 74-year-old female presents to the emergency department with a chief complaint of a headache and a staggering gait. She is found to be dehydrated on interrogation the inferior vena cava and her blood work shows a markedly elevated white blood cell count and she eventually develops a fever while here in the emergency department. A urinalysis is unremarkable chest x-ray is obtained and on my read there is an infiltrate in the left lower lobe. The case is discussed with Dr. Yousef and he will admit to the hospital for community acquired pneumonia. Departure - Departure Disposition: 66 [facility] DC/Xfer Clinical Impression: Community acquired pneumonia Qualifiers: Laterality: left Lung location: lower lobe of lung Qualified Code(s): J18.9 - Pneumonia, unspecified organism Condition: Serious
[2020-02-06 22:21] LABS: BASOPHILS # (AUTO) 0.1 10^3/uL (0.0-0.1); BASOPHILS % (AUTO) 0.5 %; EOSINOPHILS % (AUTO) 0.1 %; HGB - HEMOGLOBIN 12.5 g/dL (12.0-16.0); LYMPHOCYTES # (AUTO) 2.1 10^3/uL (1.5-3.5); LYMPHOCYTES % (AUTO) 10.1 %; MEAN CORPUSCULAR HEMOGLOBIN 34.1 pg (27.0-31.0); MEAN CORPUSCULAR HGB CONC 33.4 g/dL (32.0-36.0); MEAN CORPUSCULAR VOLUME 101.9 fL (81.0-99.0); MEAN PLATELET VOLUME 9.6 fL (7.9-10.8); MONOCYTES # (AUTO) 1.1 10^3/uL (0.0-1.0); MONOCYTES % (AUTO) 5.3 %; NEUTROPHILS % (AUTO) 83.2 %; PLT - PLATELET COUNT 204 10^3/uL (130-450); RED BLOOD COUNT 3.67 10^6/uL (4.20-5.40); RED CELL DISTRIBUTION WIDTH 14.3 % (12.0-15.0); WHITE BLOOD COUNT 20.4 x10^3/uL (4.8-10.8)
[2020-02-06 22:35] LABS: ALBUMIN 4.2 g/dL (3.2-5.5); ALBUMIN/GLOBULIN RATIO 1.4 (1.0-2.2); BILIRUBIN,TOTAL 1.1 mg/dL (0.2-1.0); CALCIUM 9.2 mg/dL (8.5-10.3); CREATININE 1.5 mg/dL (0.4-1.0); TOTAL PROTEIN 7.1 g/dL (6.7-8.2)
[2020-02-06 22:41] LABS: INR 3.5 (0.8-1.2); PT - PROTHROMBIN TIME 35.9 secs (9.9-12.6)
[2020-02-06 23:02] LABS: GLUCOSE, URINE (UA) NEGATIVE (NEGATIVE); KETONES,URINE (UA) NEGATIVE (NEGATIVE); LEUKOCYTE ESTERASE, URINE NEGATIVE (NEGATIVE); NITRITE,URINE NEGATIVE (NEGATIVE); OCCULT BLOOD,URINE NEGATIVE (NEGATIVE); PROTEIN,URINE NEGATIVE (NEGATIVE); UROBILINOGEN,URINE 0.2 (NORMAL) E.U./dL (NORMAL)
[2020-02-06 23:04] LABS: CLARITY,URINE CLEAR (CLEAR)
[2020-02-06 23:06] LABS: BILIRUBIN,URINE NEGATIVE (NEGATIVE); ICTOTEST,URINE NEGATIVE
[2020-02-06 23:13] LABS: PLATELET ESTIMATE, MANUAL NORMAL (130-450,000) (NORMAL); PLATELET MORPHOLOGY NORMAL APPEARANCE (NORMAL); RBC MORPHOLOGY (MULTIPLE) NORMAL APPEARANCE (NORMAL)
[2020-02-07] MEDS ORDERED: cefTRIAXone 1 GM in SODIUM CHLORIDE 0.9% MINIBAG 100 ML IV STA (00:47)
[2020-02-07] MEDS ORDERED: AZITHROMYCIN INJ 500 MG in SODIUM CHLORIDE 0.9% 250 ML IV STA (00:48)
[2020-02-07] MEDS ORDERED: SODIUM CHLORIDE FLUSH 0.9% 10 ML SYRINGE IVP PRN (00:50)
[2020-02-07] MEDS ORDERED: ONDANSETRON 4 MG/2 ML VIAL IVP PRN (00:50)
[2020-02-07] MEDS ORDERED: ALBUTEROL NEB 2.5 MG/3 ML INH PRN (00:53)
--- NOTE | 2020-02-07 00:55 | HISTORY & PHYSICAL EXAMINATION ---
Chief Complaint - Chief Complaint Chief Complaint: Headache History of Present Illness - Admitted From Admitted From:: Home - History Obtained From Records Reviewed: Yes History obtained from: Patient, ER Physician, EMR - History of Present Illness HPI Comment/Other: This is a very pleasant 74-year-old female with a past medical history significant for type 2 diabetes mellitus, rheumatoid arthritis on methotrexate, history mechanical aortic valve on Coumadin, hypertension who presents today complaining of a headache and a feeling of poor balance. She states she woke up this morning and had headache located throughout her head which was about a 4 out of 10. She does have a history of migraines but this is different in character. She noticed that she had poor balance this morning and took her up to 30 minutes to get dressed which is unusual. She did not fall but felt like she came close to falling a couple of times. She was not going to seek medical attention until Sunday but she called her children who convinced her to go to the emergency department today. She reports no numbness or tingling in all of her extremities. She does feel some neck and shoulder soreness. Denies any neck tenderness or decreased range of motion or pain with motion of the neck. She reports feeling short of breath as well for the past few days. She is not had a cough or any lower extremity edema. Reports no fevers but does have chills. Denies any recent sick contacts. Does not notice any skin lesions. Denies any dysuria, urgency, frequency. Denies any abdominal pain. She does have occasional diarrhea which she attributes to methotrexate. She denies feeling dizzy or lightheaded. She denies any vertigo-like symptoms. He does feel like she has poor balance. She denies any weakness in her upper or lower extremities. She does complain of some upper back pain although she states she does have chronic pain. In the emergency department, she was found to be afebrile temperature of 37.3 C. Throughout her stay, she became febrile with temperature of 38.5 degrees which persisted. Her heart rate is initially in the 80s but she became tachycardic with a heart rate of 100. Her blood pressure remained stable throughout with systolic in the 120s and diastolic in the 80s. She was tachypneic at rest with respiratory rate in the mid 20s. She was saturating well on room air. Labs were significant for a white count of 20.4 with a left shift. Her INR was 3.5. Her creatinine is elevated at 1.5 and her BUN at 30. Her lactic acid was also elevated at 2.6. Her urinalysis was unremarkable. Chest x-ray was obtained in the emergency department and the primary report shows no acute abnormalities although there does appear to be haziness in the left lower lobe concerning for possible pneumonia. CT of the head was unremarkable. Given the above findings, medicine was consulted for admission. I did discuss goals of care with the patient and she would like to be a DNR. She does not want mechanical ventilation even if she were to decline from a respiratory standpoint. History - Past Medical History Cardiovascular: reports: Hypertension, High cholesterol, Peripheral Vascular Disease, Valve disorder Respiratory: reports: None Neuro: reports: Migraines Endocrine/Autoimmune: reports: Type 2 diabetes GI: reports: GERD RECYCLING ATTENDANT: reports: None : reports: None HEENT: reports: None Musculoskeletal: reports: Rheumatoid arthritis Derm: reports: None MRSA Hx?: No - Past Surgical History General: reports: Colonoscopy Ortho: reports: Knee replacement /RECYCLING ATTENDANT: reports: Hysterectomy Cardiovascular: reports: Valve replacement (Mechanical aortic valve.), Vascular surgery - Family & Social History Family History Comment/Other: She reports both of her parents had heart disease and diabetes. She had a younger sister from lung cancer and she was a smoker. She also had another younger sister who from heart failure. Living arrangement: At home Living Situation: With spouse/s.o. Social History Notes: She lives at home with her . 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 She is a non-smoker and does not drink alcohol. - POLST Patient has POLST: No Meds/Allgy - Home Medications Home Medications: Ambulatory Orders Medication Instructions Recorded Confirmed Amlodipine Besylate 5 mg PO DAILY 02/15/13 04/28/15 Aspirin [Aspir 81] 81 mg PO DAILY 02/15/13 04/28/15 Cetirizine [ZyrTEC] 10 mg PO DAILY 02/15/13 04/28/15 Losartan [Cozaar] 50 mg PO BID 02/15/13 04/28/15 Metformin HCl [Glucophage Xr] 500 mg PO BID 02/15/13 04/28/15 Methylcellulose [Citrucel] 1,000 mg PO DAILY 02/15/13 04/28/15 Metoprolol Tartrate [Lopressor] 75 mg PO BID 02/15/13 04/28/15 Multivitamin [Multi-Vitamin Daily] 1 each PO DAILY 02/15/13 04/28/15 Omeprazole [Prilosec] 20 mg PO DAILY 02/15/13 04/28/15 Rosuvastatin Calcium [Crestor] 5 mg PO DAILY 02/15/13 04/28/15 Triamterene/Hydrochlorothiazid 0.5 each PO QDAC 02/15/13 04/28/15 [Maxzide 75 mg-50 mg Tablet] Warfarin Sodium [Coumadin] 5 mg PO 5XD 02/15/13 04/28/15 Enoxaparin [Lovenox] 120 mg SUBQ Q12H 04/28/15 04/28/15 - Allergies Allergies/Adverse Reactions: Allergies Allergy/AdvReac Type Severity Reaction Status Date / Time No Known Drug Allergies Allergy Verified 02/06/20 20:27 Review of Systems - Constitutional Constitutional: reports: Fatigue, Chills, Weakness, Poor appetite. denies: Fever - Ears, Nose & Throat Ears, Nose & Throat: denies: Nasal discharge, Nasal congestion - Cardiovascular Cariovascular: reports: Exertional dyspnea, Decr. exercise tolerance. denies: Chest pain, Edema, Lightheadedness - Respiratory Respiratory: reports: SOB at rest, SOB with exertion. denies: Cough, Sputum production - Gastrointestinal Gastrointestinal: reports: Diarrhea. denies: Abdominal pain, Constipation, Caro ge in bowel habits, Nausea, Vomiting - Genitourinary Genitourinary: denies: Dysuria, Frequency, Urgency, Hematuria - Musculoskeletal Musculoskeletal: reports: Back pain. denies: Muscle aches, Limited range of motion, Muscle weakness - Integumentary Integumentary: denies: Rash, Lesions - Neurological Neurological: reports: Headache. denies: General weakness, Focal weakness, Dizziness, Numbness - All Other Systems All Other Systems: reports: Reviewed and negative Prior Level of Functionality: She is independent with her ADLs. She normally ambulates with a cane at baseline. Exam - Vital Signs Reviewed Vital Signs: Yes Vital Signs: Vital Signs x48h Temp Pulse Resp BP Pulse Ox 02/06/20 23:19 38.5 C H 81 20 123/84 H 100 02/06/20 22:29 37.3 C 82 18 122/89 H 98 02/06/20 20:31 37.3 C 84 16 123/98 H 98 02/06/20 20:27 37.3 C 84 18 123/98 H 96 - Physical Exam General Appearance: positive: Alert, Moderate distress Eyes Bilateral: positive: Normal inspection, Conjunctivae nml ENT: positive: ENT inspection nml Neck: positive: Nml inspection, Other (No nuchal rigidity.) Respiratory: positive: Other (She does appear in mild respiratory distress. She is tachypneic at rest and she speaks in short sentences. Faint rhonchi noted in the left base. Breath sounds are relatively diminished throughout.). negative: No respiratory distress Cardiovascular: positive: Regular rate & rhythm, Tachycardia, Other (Mechanical click noted.). negative: Irregularly irregular, Bradycardia Abdomen: positive: Non-tender, No distention. negative: Tenderness, Guarding, Rebound Back: positive: Other (Normal tenderness over the thoracic spine. No erythema, edema, step-offs.) Skin: positive: Warm, Dry Extremities: positive: Full ROM, Pedal edema (Trace edema in bilateral lower extremities.) Neurologic/Psychiatric: positive: Oriented x3, Motor nml, Other (No pronator drift on exam. No dysmetria.). negative: Disoriented to person, Disoriented to place, Disoriented to time Sepsis Event Note (H) - Evaluation Current Stage of Sepsis: Severe sepsis Possible source of Sepsis: positive: Pulmonary - Sepsis Criteria Sepsis Criteria: Recorded Temperature greater than 38.3C or Less than 36C, WBC count greater than 12,000 or less than 4000, Renal: urine output less than 0.5ml/kg/hr for 2 hours or creatinine gr, Metabolic: lactate > 2 mmol/L Conclusion/Plan - Problem List (1) Severe sepsis Conclusion/Plan: She meets sepsis criteria given the elevated white count, tachycardia, elevated lactic acid, and acute kidney injury. She is fortunately normotensive. Although the primary chest x-ray reveals no acute maladies, she does appear to have a left lower infiltrate and suspect given her dyspnea at this is the cause of her sepsis. She received ceftriaxone azithromycin IV in the emergency department as well as 2 L of normal saline. We will continue her on vancomycin and cefepime IV per the sepsis bundle. We will continue azithromycin as well for atypical coverage. Follow-up blood cultures. Repeat lactic acid. Trend CBC. Will consider CT of the chest and abdomen pelvis for further evaluation if she does not improve over next 24 hours. (2) Community acquired pneumonia Conclusion/Plan: This is suspected to be the cause of her sepsis. Chest x-ray does appear to have haziness in the left base which could be an infiltrate. She does appear quite dyspneic on exam although she is not hypoxic. We will treat her with vancomycin, cefepime per the sepsis bundle. We will continue her on azithromycin for double coverage. We will consider a CT if no improvement over next 24 hours. Qualifiers: Laterality: left Lung location: lower lobe of lung Qualified Code(s): J18.9 - Pneumonia, unspecified organism (3) Acute kidney injury Conclusion/Plan: This is likely prerenal due to poor oral intake and sepsis. Her creatinine is elevated at 1.5 and her baseline is 1.0. We will continue with IV hydration. Avoid nephrotoxins. Monitor renal function and urine output. (4) Headache Conclusion/Plan: Suspect this is likely related to her sepsis and fever. CT of the head was unremarkable. Continue with Tylenol as needed for symptom relief. Treat the underlying infection (5) Poor balance Conclusion/Plan: I suspect this is also related to the sepsis and her ongoing infection. CT of the head was unremarkable. She has no focal deficits and sensation is intact. There is no lumbar spine tenderness. I did not get her out of bed due to her dyspnea to assess for ataxia. There is no pronator drift or dysmetria noted. We will continue to his underlying sepsis and consider a PT consult if she does not improve as we treat this infection. (6) H/O mechanical aortic valve replacement Conclusion/Plan: Stable. Her INR is therapeutic. Continue Coumadin and daily INRs. (7) Hypertension Conclusion/Plan: She is currently normotensive. We will hold her home antihypertensives due to sepsis. Continue with IV hydration with lactated Ringer's. We will resume her home antihypertensives when appropriate. (8) Rheumatoid arthritis Conclusion/Plan: Stable. She is on methotrexate at home which she will continue to hold for the time being given the concern for sepsis and pneumonia. (9) Type 2 diabetes mellitus Conclusion/Plan: She is on metformin at home. Her last A1c was 5.3%. We will place her on a carb controlled diet and sliding scale. - Lab Results Lab results reviewed: Yes Fish Bones: 02/07/20 04:55 02/07/20 04:55 - Diagnostic Imaging Results Diagnostic Imaging Results: positive: Prelim report reviewed, Read independently (Suspect that there is evidence of haziness in the left base which could represent an infiltrate.) - EKG Results EKG Interpreted Independently: Yes EKG Findings: Her EKG reveals a sinus rhythm with T wave inversions throughout most of the leads. No obvious ST depressions or ST elevations. There is artifact in V3. Core Measures - Anticipated LOS I expect patient to be DC'd or transferred within 96 hours.: Yes - Issues Hospital Issues and Management Plan: 74-year-old female with history of mechanical aortic valve on Coumadin presents with headache and poor balance found to have sepsis likely due to pneumonia. We will admit for IV antibiotics and IV fluids. - DVT/VTE - Prophylaxis VTE/DVT Device ordered at admit?: Yes VTE/DVT Prophylaxis med ordered at admit?: No
[2020-02-07] MEDS ORDERED: cefTRIAXone 1 GM VIAL ONE (01:01)
[2020-02-07] MEDS ORDERED: VANCOMYCIN INJ 1.75 GM in SODIUM CHLORIDE 0.9% 500 ML IV SCH (02:00)
[2020-02-07 02:07] LABS: C. PNEUMONIAE- RESP PCR PANEL NOT DETECTED
[2020-02-07] MEDS: LACTATED RINGERS 1,000 ML IV SCH ×3 (02:25→16:33)
[2020-02-07] MEDS: SODIUM CHLORIDE FLUSH 0.9% 10 ML SYRINGE IVP SCH ×3 (02:26→16:34)
[2020-02-07] MEDS: CEFEPIME 2 GM in SODIUM CHLORIDE 0.9% MINIBAG 100 ML IV SCH ×2 (02:27→13:55)
[2020-02-07] MEDS: ACETAMINOPHEN 325 MG TABLET PO PRN ×3 (03:50→16:43)
[2020-02-07 05:04] LABS: BASOPHILS # (AUTO) 0.1 10^3/uL (0.0-0.1); BASOPHILS % (AUTO) 0.6 %; EOSINOPHILS # (AUTO) 0.1 10^3/uL (0.0-0.7); EOSINOPHILS % (AUTO) 0.4 %; HGB - HEMOGLOBIN 10.5 g/dL (12.0-16.0); LYMPHOCYTES # (AUTO) 2.1 10^3/uL (1.5-3.5); LYMPHOCYTES % (AUTO) 14.5 %; MEAN CORPUSCULAR HGB CONC 33.8 g/dL (32.0-36.0); MEAN CORPUSCULAR VOLUME 100.6 fL (81.0-99.0); MEAN PLATELET VOLUME 9.3 fL (7.9-10.8); MONOCYTES # (AUTO) 0.9 10^3/uL (0.0-1.0); MONOCYTES % (AUTO) 6.6 %; NEUTROPHILS % (AUTO) 77.5 %; PLT - PLATELET COUNT 176 10^3/uL (130-450); RED BLOOD COUNT 3.09 10^6/uL (4.20-5.40); RED CELL DISTRIBUTION WIDTH 14.3 % (12.0-15.0); WHITE BLOOD COUNT 14.2 x10^3/uL (4.8-10.8)
[2020-02-07 05:07] LABS: PT - PROTHROMBIN TIME 31.2 secs (9.9-12.6)
[2020-02-07 05:10] LABS: CALCIUM 8.4 mg/dL (8.5-10.3); CREATININE 1.2 mg/dL (0.4-1.0)
--- NOTE | 2020-02-07 08:18 | PHARMACY PROGRESS NOTE ---
- Therapy Status Vancomycin regimen day #: 1 Therapy status: Awaiting steady state Basis for treatment: Empirical Treatment indication: SEPSIS, PNEUMONIA Trough goal: 15-20 Concurrent antibiotics: CEFEPIME, AZITHROMYCIN - SYLVESTER Risk Risk level for Acute Kidney Injury: Moderate Acute Kidney Injury risk factors: Wt >100kg or BMI >40, Goal trough >15, Diabet es, Sepsis - Monitoring and Recommendation Clinical response to treatment: I&O Previous 24 hours 02/05/20 02/06/20 02/07/20 23:59 23:59 23:59 Intake Total 1000 1950 Balance 1000 1950 Lab Results 02/07/20 02/06/20 04:55 22:10 BUN 26 H 30 H Creatinine 1.2 H 1.5 H Estimated GFR (MDRD) 44 L 34 L Monitoring plan: Daily serum creatinine Next trough due prior to maintenance dose #: 4 Next trough due (date/time): 02/09 AT 0730 Areas for additional monitoring: IV to PO when appropriate, Therapy de- escalation based on culture results Pharmacy recommendation: Continue current regime
--- NOTE | 2020-02-07 08:41 | XRAY Report ---
PROCEDURE: Chest 1 View X-Ray INDICATIONS: sepsis TECHNIQUE: One view of the chest was acquired. COMPARISON: 5. FINDINGS: Surgical changes and devices: Median sternotomy. Lungs and pleura: No pleural effusions or pneumothorax. Lungs are clear. Mediastinum: Mediastinal contours appear normal. Heart size is normal. Bones and chest wall: No suspicious bony lesions. Overlying soft tissues appear unremarkable. IMPRESSION: No acute process. Concordant with preliminary interpretation. Reviewed by: Mike Turcios MD on 02/07/2020 8:40 AM [facility] Approved by: Mike Turcios MD on 02/07/2020 8:40 AM [facility] Station ID: [id number]
[2020-02-07] MEDS ORDERED: VANCOMYCIN INJ 500 MG in SODIUM CHLORIDE 0.9% MINIBAG 100 ML IV ONE (09:00)
--- NOTE | 2020-02-07 09:21 | CT Report ---
PROCEDURE: HEAD WO INDICATIONS: headache on coumadin TECHNIQUE: Noncontrast 4.5 mm thick angled axial sections acquired from the foramen magnum to the vertex. For r adiation dose reduction, the following was used: automated exposure control, adjustment of mA and/or kV according to patient size. COMPARISON: None. FINDINGS: Image quality: Excellent. CSF spaces: Basal cisterns are patent. No extra-axial fluid collections. Ventricles are normal in size and shape. Brain: No midline shift. No intracranial masses or hemorrhage. Quiñonez-white matter interface is norm al. Skull and face: Calvarium and visualized facial bones are intact, without suspicious lesions. Sinuses: Visualized sinuses and mastoids are clear. IMPRESSION: No acute process. Concordant with preliminary interpretation. Reviewed by: Mike Turcios MD on 02/07/2020 9:20 AM [facility] Approved by: Mike Turcios MD on 02/07/2020 9:20 AM [facility] Station ID: [id number]
--- NOTE | 2020-02-07 11:39 | PHARMACY PROGRESS NOTE ---
- Best Possible Medication History Admit Date and Time: 02/07/20 0050 Processed by: Pharmacy Medication History completed: Yes Patient Interview: Completed Secondary Source(s): Physician records, Pharmacy records, Insurance records As the person ultimately responsible for medication therapy, providers are able to order a medication from an existing home medication list in [facility] via the "Reconcile Routine" prior to Confirmation of that medication by clinical support specialist. Such practice is discouraged except when the physician, in their clinical judgment, deems that a medical need exists for a medication without regard to previous use.
[2020-02-07] MEDS: INSULIN ASPART 300 UNIT/3 ML PEN SUBQ SCH ×2 (16:33→21:27)
[2020-02-07] MEDS ORDERED: ATORVASTATIN 10 MG TABLET PO SCH (20:00)
[2020-02-07] MEDS: GABAPENTIN 100 MG CAPSULE PO SCH (21:27)
[2020-02-08] MEDS: SODIUM CHLORIDE FLUSH 0.9% 10 ML SYRINGE IVP SCH ×3 (00:37→16:43)
[2020-02-08] MEDS: ACETAMINOPHEN 325 MG TABLET PO PRN ×3 (01:05→21:15)
[2020-02-08] MEDS: CEFEPIME 2 GM in SODIUM CHLORIDE 0.9% MINIBAG 100 ML IV SCH (01:10)
[2020-02-08] MEDS: LACTATED RINGERS 1,000 ML IV SCH (02:14)
[2020-02-08 06:12] LABS: BASOPHILS # (AUTO) 0.1 10^3/uL (0.0-0.1); BASOPHILS % (AUTO) 0.6 %; EOSINOPHILS # (AUTO) 0.4 10^3/uL (0.0-0.7); EOSINOPHILS % (AUTO) 5.6 %; HGB - HEMOGLOBIN 10.3 g/dL (12.0-16.0); LYMPHOCYTES # (AUTO) 1.6 10^3/uL (1.5-3.5); LYMPHOCYTES % (AUTO) 20.2 %; MEAN CORPUSCULAR HEMOGLOBIN 33.8 pg (27.0-31.0); MEAN CORPUSCULAR HGB CONC 32.4 g/dL (32.0-36.0); MEAN CORPUSCULAR VOLUME 104.3 fL (81.0-99.0); MEAN PLATELET VOLUME 9.6 fL (7.9-10.8); MONOCYTES # (AUTO) 0.6 10^3/uL (0.0-1.0); MONOCYTES % (AUTO) 7.2 %; NEUTROPHILS # (AUTO) 5.2 10^3/uL (1.5-6.6); PLT - PLATELET COUNT 158 10^3/uL (130-450); RED BLOOD COUNT 3.05 10^6/uL (4.20-5.40); RED CELL DISTRIBUTION WIDTH 14.3 % (12.0-15.0); WHITE BLOOD COUNT 7.9 x10^3/uL (4.8-10.8)
[2020-02-08 06:21] LABS: CALCIUM 8.6 mg/dL (8.5-10.3); CREATININE 0.8 mg/dL (0.4-1.0)
[2020-02-08] MEDS ORDERED: VANCOMYCIN INJ 1.75 GM in SODIUM CHLORIDE 0.9% 500 ML IV SCH (08:00)
--- NOTE | 2020-02-08 08:04 | PROVIDER PROGRESS NOTE ---
Subjective - Prog Note Date Prog Note Date: 02/08/20 Prog Note Time: 08:01 - Subjective Subjective: Overnight she has had no fever. O2 sat is 92 to 94% on room air. Glucose has been in the 120s. Creatinine has improved from 1.2-0.8 She is asking that we give her 7.5 mg of Coumadin tonight when we resume it. Current Medications - Current Medications Current Medications: Active Medications Acetaminophen (Tylenol) 650 mg PO Q4HR PRN PRN Reason: Pain 1 to 4 Last Admin: 02/08/20 01:05 Dose: 650 mg Documented by: Albuterol () 2.5 mg INH Q4HR PRN PRN Reason: Wheezing Aspirin (Ecotrin) 81 mg PO DAILY [facility] Atorvastatin Calcium (Lipitor) 10 mg PO Q48H [facility] Last Admin: 02/07/20 21:26 Dose: Not Given Documented by: Azithromycin (Zithromax) 250 mg PO DAILY [facility] Stop: 02/11/20 09:01 Cefuroxime Axetil (Ceftin) 250 mg PO BID [facility] Gabapentin (Neurontin) 400 mg PO QPM [facility] Last Admin: 02/07/20 21:27 Dose: 400 mg Documented by: Gabapentin (Neurontin) 100 mg PO DAILY [facility] Lactated Ringer's (Lr) 1,000 mls @ 100 mls/hr IV .Q10H [facility] Last Admin: 02/08/20 02:14 Dose: 100 mls/hr Documented by: Vancomycin HCl 1.75 gm/ Sodium (Chloride) 500 mls @ 250 mls/hr IV Q24H [facility] Insulin Aspart (Novolog) 2 - 10 unit SUBQ 0800,1200,1700,2100 [facility]; Protocol Last Admin: 02/07/20 21:27 Dose: Not Given Documented by: Ondansetron HCl (Zofran Inj) 4 mg IVP Q6HR PRN PRN Reason: Nausea / Vomiting Sodium Chloride (Normal Saline Flush 0.9%) 10 ml IVP PRN PRN PRN Reason: NEEDED PER PROVIDER ORDERS Sodium Chloride (Normal Saline Flush 0.9%) 10 ml IVP 0100,0900,1700 [facility] Last Admin: 02/08/20 00:37 Dose: Not Given Documented by: Warfarin Sodium (Coumadin) 5 mg PO QDWARFARIN [facility] Amlodipine Besylate 5 mg PO DAILY 02/15/13 Aspirin [Aspir 81] 81 mg PO DAILY 02/15/13 Cetirizine [ZyrTEC] 10 mg PO DAILY 02/15/13 Losartan [Cozaar] 50 mg PO BID 02/15/13 Metoprolol Tartrate [Lopressor] 75 mg PO BID 02/15/13 Multivitamin [Multi-Vitamin Daily] 1 each PO DAILY 02/15/13 Omeprazole [Prilosec] 20 mg PO DAILY 02/15/13 Rosuvastatin Calcium [Crestor] 5 mg PO Q48H 02/15/13 Adalimumab [Humira(Cf)] 40 mg SUBQ Q7D 02/07/20 Gabapentin [Neurontin] 100 mg PO DAILY 02/07/20 Gabapentin [Neurontin] 400 mg PO QPM 02/07/20 Loperamide [Imodium] 2 mg PO ONCE PRN 02/07/20 Methotrexate 15 mg PO MO 02/07/20 SUMAtriptan [Imitrex] 25 mg PO Q2H PRN MDD 2 02/07/20 Triamterene/Hydrochlorothiazid [Triamterene-Hctz 37.5-25 mg Tb] 1 each PO DAILY 02/07/20 Warfarin [Coumadin] 5 mg PO DAILY 02/07/20 metFORMIN [Glucophage] 500 mg PO BIDWM 02/07/20 Objective - Vital Signs/Intake & Output Reviewed Vital Signs: Yes Vital Signs: Vital Signs x48h Temp Pulse Pulse Resp BP Pulse Ox 02/08/20 05:45 36.8 C 83 18 92 02/08/20 04:11 36.8 C 83 18 146/50 H 92 02/08/20 01:00 37.3 C 95 20 152/57 H 93 Intake & Output: Intake & Output 02/05/20 02/06/20 02/07/20 02/08/20 23:59 23:59 23:59 23:59 Intake Total 1000 4895.000 456.667 Output Total 725 Balance 1000 4895.000 -268.333 - Objective General Appearance: positive: Alert, Other (Short moderately overweight female who is 5 feet 3 inches tall weighs 118 kg. Much improved from yesterday. She i s ambulating from her bed to her toilet without any ataxia, no dizziness, just feels really tired.) Eyes Bilateral: positive: PERRL, EOMI ENT: positive: No signs of dehydration Neck: positive: No JVD. negative: Stiff neck Respiratory: positive: No respiratory distress. negative: Wheezes, Rales, Rh onchi Cardiovascular: positive: Regular rate & rhythm, Systolic murmur. negative: Gallop/S4, Friction rub Abdomen: positive: Non-tender, No organomegaly, Nml bowel sounds, No distention Skin: positive: Warm, Dry, Pallor Extremities: positive: Full ROM, No pedal edema Neurologic/Psychiatric: positive: Oriented x3, CN's nml (2-12), Motor nml - Lab Results Fish Bones: 02/08/20 05:45 02/08/20 05:45 Other Labs: Lab Results x24hrs 02/08/20 02/08/20 02/07/20 Range/Units 05:45 05:45 20:51 WBC 7.9 (4.8-10.8) x10^3/uL RBC 3.05 L (4.20-5.40) 10^6/uL Hgb 10.3 L (12.0-16.0) g/dL Hct 31.8 L (37.0-47.0) % MCV 104.3 H (81.0-99.0) fL MCH 33.8 H (27.0-31.0) pg MCHC 32.4 (32.0-36.0) g/dL RDW 14.3 (12.0-15.0) % Plt Count 158 (130-450) 10^3/uL MPV 9.6 (7.9-10.8) fL Neut # (Auto) 5.2 (1.5-6.6) 10^3/uL Lymph # (Auto) 1.6 (1.5-3.5) 10^3/uL [place] # (Auto) 0.6 (0.0-1.0) 10^3/uL Eos # (Auto) 0.4 (0.0-0.7) 10^3/uL Baso # (Auto) 0.1 (0.0-0.1) 10^3/uL Absolute Nucleated RBC 0.00 x10^3/uL Nucleated RBC % 0.0 /100WBC Sodium 136 (135-145) mmol/L Potassium 3.7 (3.5-5.0) mmol/L Chloride 105 (101-111) mmol/L Carbon Dioxide 22 (21-32) mmol/L Anion Gap 9.0 (6-13) BUN 14 (6-20) mg/dL Creatinine 0.8 (0.4-1.0) mg/dL Estimated GFR (MDRD) 71 L (>89) Glucose 110 H (70-100) mg/dL POC Whole Bld Glucose 122 H (70 - 100) mg/dL Calcium 8.6 (8.5-10.3) mg/dL Troponin I High Sens (2.3-14.8) ng/L 02/07/20 02/07/20 02/07/20 Range/Units 16:31 11:58 08:08 WBC (4.8-10.8) x10^3/uL RBC (4.20-5.40) 10^6/uL Hgb (12.0-16.0) g/dL Hct (37.0-47.0) % MCV (81.0-99.0) fL MCH (27.0-31.0) pg MCHC (32.0-36.0) g/dL RDW (12.0-15.0) % Plt Count (130-450) 10^3/uL MPV (7.9-10.8) fL Neut # (Auto) (1.5-6.6) 10^3/uL Lymph # (Auto) (1.5-3.5) 10^3/uL [place] # (Auto) (0.0-1.0) 10^3/uL Eos # (Auto) (0.0-0.7) 10^3/uL Baso # (Auto) (0.0-0.1) 10^3/uL Absolute Nucleated RBC x10^3/uL Nucleated RBC % /100WBC Sodium (135-145) mmol/L Potassium (3.5-5.0) mmol/L Chloride (101-111) mmol/L Carbon Dioxide (21-32) mmol/L Anion Gap (6-13) BUN (6-20) mg/dL Creatinine (0.4-1.0) mg/dL Estimated GFR (MDRD) (>89) Glucose (70-100) mg/dL POC Whole Bld Glucose 129 H 142 H 120 H (70 - 100) mg/dL Calcium (8.5-10.3) mg/dL Troponin I High Sens (2.3-14.8) ng/L 02/07/20 Range/Units 07:55 WBC (4.8-10.8) x10^3/uL RBC (4.20-5.40) 10^6/uL Hgb (12.0-16.0) g/dL Hct (37.0-47.0) % MCV (81.0-99.0) fL MCH (27.0-31.0) pg MCHC (32.0-36.0) g/dL RDW (12.0-15.0) % Plt Count (130-450) 10^3/uL MPV (7.9-10.8) fL Neut # (Auto) (1.5-6.6) 10^3/uL Lymph # (Auto) (1.5-3.5) 10^3/uL [place] # (Auto) (0.0-1.0) 10^3/uL Eos # (Auto) (0.0-0.7) 10^3/uL Baso # (Auto) (0.0-0.1) 10^3/uL Absolute Nucleated RBC x10^3/uL Nucleated RBC % /100WBC Sodium (135-145) mmol/L Potassium (3.5-5.0) mmol/L Chloride (101-111) mmol/L Carbon Dioxide (21-32) mmol/L Anion Gap (6-13) BUN (6-20) mg/dL Creatinine (0.4-1.0) mg/dL Estimated GFR (MDRD) (>89) Glucose (70-100) mg/dL POC Whole Bld Glucose (70 - 100) mg/dL Calcium (8.5-10.3) mg/dL Troponin I High Sens 14.3 (2.3-14.8) ng/L ABX Reporting Has patient been on IV antibiotics over the past 48 hours?: Yes Sepsis Event Note (H) - Evaluation Current Stage of Sepsis: Resolved Possible source of Sepsis: positive: Pulmonary - Sepsis Criteria Sepsis Criteria: Recorded Temperature greater than 38.3C or Less than 36C, WBC count greater than 12,000 or less than 4000, Renal: urine output less than 0.5ml/kg/hr for 2 hours or creatinine gr, Metabolic: lactate > 2 mmol/L Assessment/Plan - Problem List (1) Severe sepsis Impression: She met sepsis criteria with the elevated white count, tachycardia, elevated lactic acid, and acute kidney injury. She was normotensive. Although the primary chest x-ray reveals no acute maladies, she does appear to have a left lower infiltrate and suspect given her dyspnea at this was the cause of her sepsis. She is responded to ceftriaxone and azithromycin in the emergency room and we gave her vancomycin and cefepime using the sepsis bundle. She is no longer dyspneic. She is no longer dizzy. O2 sats are acceptable. Repeat lactic acid is normal. Blood cultures are negative at 24 hours. White cell count was 20.4 then came down to 14.2 and is now 7.9. We will not have to do CT of abdomen and pelvis because she has improved. Plan: Change IV antibiotics to Ceftin and azithromycin oral Watch for 24 hours Discharge tomorrow if she stays stable (2) Community acquired pneumonia Conclusion/Plan: This is suspected to be the cause of her sepsis. Chest x-ray on admission hadhaziness in the left base which could be an infiltrate. She Did appear quite dyspneic on exam although she is not hypoxic. She is improved. Will change to oral antibiotics of Ceftin and amoxicillin. Discontinue vancomycin.Plan is for a total of 3 g of azithromycin, and then Ceftin for a total of 7 days combined IV and oral antibiotic. Qualifiers: Laterality: left Lung location: lower lobe of lung Qualified Code(s): J18.9 - Pneumonia, unspecified organism (3) Acute kidney injury Resolved Conclusion/Plan: This is likely prerenal due to poor oral intake and sepsis.With hydration and antibiotics, creatinine was 1.5 and came down to 0.8 today. She is at baseline.Will stop IV fluids. (4) Headache Resolved Conclusion/Plan: Suspect this is likely related to her sepsis and fever. CT of the head was unre markable. Continue with Tylenol as needed for symptom relief. Treat the underlying infection (5) Poor balance Resolved Conclusion/Plan: We felt that this was related to her sepsis and infection. CT of the head was negative. Neurological exam did not reveal focal deficits and sensation was intact. She has been getting out of bed, walking to the bathroom with standby assist. No ataxia. Since she is ambulating in the room and independent, she has not needed physical therapy. (6) H/O mechanical aortic valve replacement Conclusion/Plan: Stable. Her INR is therapeutic. Continue Coumadin and daily INRs. Increase Coumadin to 7.5 mg at her request. (7) Hypertension Conclusion/Plan: Blood pressure varying between 120 systolic up to 152 systolic. Earlier this morning she was 146 systolic. At home she is on amlodipine, losartan, metoprolol, and triamterene with hydrochlorothiazide. I will resume all of those except the hydrochlorothiazide. (8) Rheumatoid arthritis Conclusion/Plan: Stable. She is on methotrexate And Humira at home which she will continue to hold for the time being given the concern for sepsis and pneumonia. She is worried that she will have increased joint pain. She has an appointment with her warehouse specialist in [place] next week and is thinking of canceling it. I have encouraged her to keep it or please contact them to see if she can do a telemedicine visit. (9) Type 2 diabetes mellitus Conclusion/Plan: She is on metformin at home. Her last A1c was 5.3%. We will place her on a carb controlled diet and sliding scale.Glucose with this has been in the 120s, with the highest 142 at lunch yesterday. Plan: No change in sliding scale at this time.
[2020-02-08] MEDS: INSULIN ASPART 300 UNIT/3 ML PEN SUBQ SCH ×4 (08:06→21:19)
[2020-02-08] MEDS: GABAPENTIN 100 MG CAPSULE PO SCH ×2 (08:07→21:19)
[2020-02-08] MEDS: ASPIRIN EC 81 MG TABLET PO SCH (08:07)
[2020-02-08] MEDS: AZITHROMYCIN 250 MG TABLET PO SCH (08:18)
[2020-02-08] MEDS ORDERED: cefTRIAXone 2 GM in SODIUM CHLORIDE 0.9% MINIBAG 100 ML IV SCH (09:00)
[2020-02-08] MEDS ORDERED: AZITHROMYCIN INJ 500 MG in SODIUM CHLORIDE 0.9% 250 ML IV SCH (09:00)
[2020-02-08 11:44] LABS: INR 1.7 (0.8-1.2)
[2020-02-08] MEDS ORDERED: WARFARIN 5 MG TABLET PO SCH ×2 (17:00→19:37)
[2020-02-08] MEDS: ENOXAPARIN 120 MG/0.8 ML SYRINGE SUBQ SCH ×2 (21:19→21:20)
[2020-02-09] MEDS: SODIUM CHLORIDE FLUSH 0.9% 10 ML SYRINGE IVP SCH ×2 (04:10→11:39)
[2020-02-09 05:17] LABS: BASOPHILS # (AUTO) 0.1 10^3/uL (0.0-0.1); BASOPHILS % (AUTO) 1.1 %; EOSINOPHILS # (AUTO) 0.4 10^3/uL (0.0-0.7); HGB - HEMOGLOBIN 10.4 g/dL (12.0-16.0); LYMPHOCYTES # (AUTO) 1.9 10^3/uL (1.5-3.5); LYMPHOCYTES % (AUTO) 36.2 %; MEAN CORPUSCULAR HEMOGLOBIN 33.9 pg (27.0-31.0); MEAN CORPUSCULAR HGB CONC 33.9 g/dL (32.0-36.0); MEAN PLATELET VOLUME 8.8 fL (7.9-10.8); MONOCYTES # (AUTO) 0.4 10^3/uL (0.0-1.0); MONOCYTES % (AUTO) 8.3 %; NEUTROPHILS # (AUTO) 2.4 10^3/uL (1.5-6.6); NEUTROPHILS % (AUTO) 45.8 %; PLT - PLATELET COUNT 166 10^3/uL (130-450); RED BLOOD COUNT 3.07 10^6/uL (4.20-5.40); RED CELL DISTRIBUTION WIDTH 13.9 % (12.0-15.0); WHITE BLOOD COUNT 5.3 x10^3/uL (4.8-10.8)
[2020-02-09 05:27] LABS: CALCIUM 8.9 mg/dL (8.5-10.3); CREATININE 0.7 mg/dL (0.4-1.0)
[2020-02-09 05:30] LABS: INR 1.6 (0.8-1.2); PT - PROTHROMBIN TIME 17.7 secs (9.9-12.6)
[2020-02-09] MEDS ORDERED: POTASSIUM CHLORIDE 20 MEQ TABLET PO ONE (07:05)
--- NOTE | 2020-02-09 07:52 | Discharge Plan ---
Discharge Plan Problem Reviewed?: Yes Disposition: Home, Self Care Condition: Good Prescriptions: cefUROXime axetiL [Ceftin] 500 mg PO BID #20 tablet Enoxaparin [Lovenox] 120 mg SUBQ BID 4 Days #8 syringe Azithromycin [Zithromax] 250 mg PO DAILY #2 tablet Diet: Diabetic Activity Restrictions: Activity as Tolerated Shower Restrictions: No Driving Restrictions: No Instruction Topics: Enoxaparin injection, Cefuroxime tablets, Coumadin Health Concerns: You came to our emergency room because you felt like you were off balance and seemed to be wanting to walk lopsided. Your children talk to you into coming to the hospital. We found you to have sepsis with pneumonia. Your initial white cell count was over 20,000, you had lactic acidosis, and had acute kidney injury. Once we gave you antibiotics and gave you IV fluids, your white cell count became normal. Your kidney function became normal. We changed you to antibiotics by mouth, your fever has stayed down. Your white cell count has stayed normal. As such we feel you are stable enough to go home on oral antibiotics. Plan of Treatment: 1. Azithromycin once a day for 2 more days 2. Ceftin 250 mg tablets, 2 tablets twice a day for 5 more days 3. You have a mechanical valve, and your Coumadin is not therapeutic. As such we will be sending you home on Lovenox 120 mg subcutaneously twice a day. You will take your Coumadin and be able to come off Lovenox. 4. Please see your primary care provider in follow-up, Kady Cortez, in the next week. Care Goals: 1. To complete therapy for antibiotics To maintain anticoagulation status in the face of a mechanical valve Assessment: Patient understands plan and treatment and agrees to follow through No Smoking: If you smoke, Please STOP! Call for help. Follow-up with: Kady Cortez ARNP, [employer] [Primary Care Provider] -
[2020-02-09] MEDS: ENOXAPARIN 120 MG/0.8 ML SYRINGE SUBQ SCH (09:00)
[2020-02-09] MEDS: INSULIN ASPART 300 UNIT/3 ML PEN SUBQ SCH (09:03)
[2020-02-09] MEDS: AZITHROMYCIN 250 MG TABLET PO SCH (09:04)
[2020-02-09 11:33] VITALS: BP 150/79
[2020-02-09] MEDS: ASPIRIN EC 81 MG TABLET PO SCH (11:34)
[2020-02-09] MEDS: GABAPENTIN 100 MG CAPSULE PO SCH (11:35)
--- NOTE | 2020-02-09 13:37 | DISCHARGE SUMMARY ---
"Discharge Summary Admit Date: 02/07/20 Discharge Date: 02/09/20 Discharging Provider: Chela Doe MD Primary Care Provider: Kady Cortez MD Condition at Discharge: Good Discharge Disposition: 01 Home, Self Care - DIAGNOSES Discharge Diagnoses with Status of Each Condition: 1. Severe sepsis 2. Community-acquired pneumonia 3. Acute kidney injury 4. Headache 5. Gait ataxia 6. History of mechanical aortic valve replacement 7. Hypertension 8. Psoriatic arthritis 9. Type 2 diabetes mellitus, controlled, not on long-term insulin, without complications. - HPI History of Present Illness: This is a very pleasant 74-year-old female with a past medical history significant for type 2 diabetes mellitus, rheumatoid arthritis on methotrexate, history mechanical aortic valve on Coumadin, hypertension who presents today complaining of a headache and a feeling of poor balance. She states she woke up this morning and had headache located throughout her head which was about a 4 out of 10. She does have a history of migraines but this is different in character. She noticed that she had poor balance this morning and took her up to 30 minutes to get dressed which is unusual. She did not fall but felt like she came close to falling a couple of times. She was not going to seek medical attention until Sunday but she called her children who convinced her to go to the emergency department today. She reports no numbness or tingling in all of her extremities. She does feel some neck and shoulder soreness. Denies any neck tenderness or decreased range of motion or pain with motion of the neck. She reports feeling short of breath as well for the past few days. She is not had a cough or any lower extremity edema. Reports no fevers but does have chills. Denies any recent sick contacts. Does not notice any skin lesions. Denies any dysuria, urgency, frequency. Denies any abdominal pain. She does have occasional diarrhea which she attributes to methotrexate. She denies feeling dizzy or lightheaded. She denies any vertigo-like symptoms. He does feel like she has poor balance. She denies any weakness in her upper or lower extremities. She does complain of some upper back pain although she states she does have chronic pain. In the emergency department, she was found to be afebrile temperature of 37.3 C. Throughout her stay, she became febrile with temperature of 38.5 degrees which persisted. Her heart rate is initially in the 80s but she became tachycardic with a heart rate of 100. Her blood pressure remained stable throughout with systolic in the 120s and diastolic in the 80s. She was tachypn eic at rest with respiratory rate in the mid 20s. She was saturating well on room air. Labs were significant for a white count of 20.4 with a left shift. Her INR was 3.5. Her creatinine is elevated at 1.5 and her BUN at 30. Her lactic acid was also elevated at 2.6. Her urinalysis was unremarkable. Chest x-ray was obtained in the emergency department and the primary report shows no acute abnormalities although there does appear to be haziness in the left lower lobe concerning for possible pneumonia. CT of the head was unremarkable. Given the above findings, medicine was consulted for admission. I did discuss goals of care with the patient and she would like to be a DNR. She does not want mechanical ventilation even if she were to decline from a respiratory standpoint. - Past Medical History Cardiovascular: reports: Hypertension, High cholesterol, Peripheral Vascular Disease, Valve disorder Respiratory: reports: None Neuro: reports: Migraines Endocrine/Autoimmune: reports: Type 2 diabetes GI: reports: GERD SUPERVISOR MOLD YARD: reports: None : reports: None HEENT: reports: None Musculoskeletal: reports: Rheumatoid arthritis Derm: reports: None MRSA Hx?: No - Past Surgical History General: reports: Colonoscopy Ortho: reports: Knee replacement /SUPERVISOR MOLD YARD: reports: Hysterectomy Cardiovascular: reports: Valve replacement (Mechanical aortic valve.), Vascular surgery - CONSULTS | PROCEDURES Procedures: 1. Head CT done for headache on Coumadin showed no acute process. Sinuses and mastoids clear. No midline shift, no intracranial masses or hemorrhages. 2. Chest x-ray without acute process. Initial interpretation was haziness of the left lower lobe with the ER doctor who treated her as pneumonia. 3. Blood cultures were negative after 2 days. 4. Covid PCR negative. All respiratory virus is negative. - HOSPITAL COURSE Hospital Course: On admission she met sepsis criteria with an elevated white cell count, tachycardia, elevated lactic acid and acute kidney injury. She was normotensive. Chest x-ray had a left lower lobe infiltrate. She was initially treated with ceftriaxone and azithromycin in the emergency room and because of the diagnosis of sepsis in a patient with diabetes, we change her to the sepsis protocol which is vancomycin and cefepime. White cell count was initially 20.4 then 14.2 and was 7.9 within 48 hours. She was changed to oral antibiotics in the form of Ceftin and azithromycin and did well. No recurrence of fever or shortness of breath. Acute kidney injury resolved with creatinine coming down to 0.8. Headache present on admission resolved. The poor balance she was feeling related to her sepsis and infection resolved. INR came down a bit and she was discharged with Lovenox for bridging. Blood pressure ranged between 120 systolic to 152 systolic. All of her home medications of amlodipine, losartan, metoprolol were resumed except for the triamterene with hydrochlorothiazide. Humira was held for her rheumatoid arthritis. She has an appointment with her director of claims the week after discharge. A1c was 5.3% and her diabetes was controlled during her stay with sliding scale insulin. Metformin was not given to her during her stay.Potassium 40 mEq was given to her on the day of discharge for her low potassium of 3.3.During her stay hemoglobin dropped to 10.3-10.5 from 12.5. She is usually not anemic. This was attributed to hydration and no acute blood loss.There was no black stools. Vomiting of blood. She was discharged in stable condition. She is 5 foot 3 inches tall and weighs 118 kg. She is a short statured morbidly obese white female who is able to sit up, stand, pivot to a chair, walk to the bathroom without any difficulty or ataxia or shortness of breath. Temperature was 36.9, heart rate 90, blood pressure 150/79. Respirations 20 and unlabored. Lungs were clear with diminished sounds at the bases. 95% on room air. Abdomen was benign. Extremities were with trace edema. She had a regular rate and rhythm. Greater than 30 minutes was spent coordinating discharge.The patient is concerned that she has a rheumatology visit later on this week that she will have to cancel. She is on Humira and has missed a dose this week. Anticipated she will miss a dose for a couple of weeks. She wants us to notify her rheumat ologist and give her director of claims a copy of this discharge summary. The director of claims is Mirian Taylor MD. [facility]. [address] [place] [address], [facility], [place] [address]. Phone number [phone]. - ALLERGIES Allergies/Adverse Reactions: Allergies Allergy/AdvReac Type Severity Reaction Status Date / Time No Known Drug Allergies Allergy Verified 02/06/20 20:27 - MEDICATIONS Home Medications: Ambulatory Orders Medication Instructions Recorded Confirmed Amlodipine Besylate 5 mg PO DAILY 02/15/13 02/07/20 Aspirin [Aspir 81] 81 mg PO DAILY 02/15/13 02/07/20 Cetirizine [ZyrTEC] 10 mg PO DAILY 02/15/13 02/07/20 Losartan [Cozaar] 50 mg PO BID 02/15/13 02/07/20 Metoprolol Tartrate [Lopressor] 75 mg PO BID 02/15/13 02/07/20 Multivitamin [Multi-Vitamin Daily] 1 each PO DAILY 02/15/13 02/07/20 Omeprazole [Prilosec] 20 mg PO DAILY 02/15/13 02/07/20 Rosuvastatin Calcium [Crestor] 5 mg PO Q48H 02/15/13 02/07/20 Adalimumab [Humira(Cf)] 40 mg SUBQ Q7D 02/07/20 02/07/20 Gabapentin [Neurontin] 100 mg PO DAILY 02/07/20 02/07/20 Gabapentin [Neurontin] 400 mg PO QPM 02/07/20 02/07/20 Loperamide [Imodium] 2 mg PO ONCE PRN 02/07/20 02/07/20 Methotrexate 15 mg PO MO 02/07/20 02/07/20 SUMAtriptan [Imitrex] 25 mg PO Q2H PRN MDD 2 02/07/20 02/07/20 Triamterene/Hydrochlorothiazid 1 each PO DAILY 02/07/20 02/07/20 [Triamterene-Hctz 37.5-25 mg Tb] Warfarin [Coumadin] 5 mg PO DAILY 02/07/20 02/07/20 metFORMIN [Glucophage] 500 mg PO BIDWM 02/07/20 02/07/20 Azithromycin [Zithromax] 250 mg PO DAILY #2 tablet 02/09/20 Enoxaparin [Lovenox] 120 mg SUBQ BID 4 Days #8 syringe 02/09/20 cefUROXime axetiL [Ceftin] 500 mg PO BID #20 tablet 02/09/20 - LABS Result Diagrams: 02/09/20 05:04 02/09/20 05:04 - SEPSIS Current Stage of Sepsis: Resolved Possible source of Sepsis: Pulmonary Sepsis Criteria: Recorded Temperature greater than 38.3C or Less than 36C, WBC count greater than 12,000 or less than 4000, Renal: urine output less than 0.5ml/kg/hr for 2 hours or creatinine gr, Metabolic: lactate > 2 mmol/L"
== END 2020-02-09 11:34 | disposition home or self-care (01) | DRG 871 ==
LOC: ED 20:17 → MS2 02-07 00:50
PROVIDERS: ADMIT Internal Medicine; ATTEND Specialist
DX: A41.9 Sepsis, unspecified organism (principal); E86.0 Dehydration; J18.9 Pneumonia, unspecified organism; N17.9 Acute kidney failure, unspecified; Z68.42 Body mass index [BMI] 45.0-49.9, adult; K52.1 Toxic gastroenteritis and colitis; R65.20 Severe sepsis without septic shock; T38.3X5A Adverse effect of insulin and oral hypoglycemic [antidiabetic] drugs, initial encounter; Z79.01 Long term (current) use of anticoagulants; Z95.2 Presence of prosthetic heart valve; I10 Essential (primary) hypertension; M06.9 Rheumatoid arthritis, unspecified; M54.9 Dorsalgia, unspecified; G89.29 Other chronic pain; E11.51 Type 2 diabetes mellitus with diabetic peripheral angiopathy without gangrene; Z79.84 Long term (current) use of oral hypoglycemic drugs; Z66 Do not resuscitate; E66.01 Morbid (severe) obesity due to excess calories; R51.9 Headache, unspecified; L40.50 Arthropathic psoriasis, unspecified; T45.1X5A Adverse effect of antineoplastic and immunosuppressive drugs, initial encounter; Z20.828 Contact with and (suspected) exposure to other viral communicable diseases
CPT/HCPCS: 36415; 70450; 71045; 80048; 80053; 81003; 83605; 83690; 84484; 85025; 85610; 87040; 87631; 93005; 99284; 99285; A9270; J1650; J3370; J7120; 0202U; 81001; 87086

== ENCOUNTER 2020-02-23 11:47 | Outpatient (CLI) | payer MEDICARE, OTHER ==
[2020-02-23 12:06] LABS: BASOPHILS # (AUTO) 0.2 10^3/uL (0.0-0.1); BASOPHILS % (AUTO) 2.4 %; EOSINOPHILS # (AUTO) 0.9 10^3/uL (0.0-0.7); EOSINOPHILS % (AUTO) 13.2 %; HGB - HEMOGLOBIN 13.1 g/dL (12.0-16.0); LYMPHOCYTES # (AUTO) 3.3 10^3/uL (1.5-3.5); LYMPHOCYTES % (AUTO) 49.2 %; MEAN CORPUSCULAR HGB CONC 33.6 g/dL (32.0-36.0); MEAN CORPUSCULAR VOLUME 98.2 fL (81.0-99.0); MEAN PLATELET VOLUME 9.1 fL (7.9-10.8); MONOCYTES # (AUTO) 0.5 10^3/uL (0.0-1.0); MONOCYTES % (AUTO) 7.5 %; NEUTROPHILS # (AUTO) 1.8 10^3/uL (1.5-6.6); NEUTROPHILS % (AUTO) 27.4 %; PLT - PLATELET COUNT 266 10^3/uL (130-450); RED BLOOD COUNT 3.97 10^6/uL (4.20-5.40); WHITE BLOOD COUNT 6.7 x10^3/uL (4.8-10.8)
[2020-02-23 12:31] LABS: ALBUMIN 4.1 g/dL (3.2-5.5); ALBUMIN/GLOBULIN RATIO 1.4 (1.0-2.2); ALKALINE PHOSPHATASE 55 IU/L (42-121); ALT ALANINE AMINOTRANSFERASE 35 IU/L (10-60); AST ASPARTATE AMINOTRANSFERASE 38 IU/L (10-42); BILIRUBIN,TOTAL 0.7 mg/dL (0.2-1.0); BUN - BLOOD UREA NITROGEN 19 mg/dL (6-20); CALCIUM 9.7 mg/dL (8.5-10.3); CARBON DIOXIDE - CO2 24 mmol/L (21-32); CHLORIDE 102 mmol/L (101-111); CREATININE 0.9 mg/dL (0.4-1.0); GLUCOSE 133 mg/dL (70-100); SODIUM 138 mmol/L (135-145); TOTAL PROTEIN 7.1 g/dL (6.7-8.2)
[2020-02-23 12:33] LABS: CRP - C-REACTIVE PROTEIN < 1.0 mg/dL (0-1.0)
== END 2020-02-23 11:48 | disposition home or self-care (01) ==
LOC: LAB 11:47
PROVIDERS: ATTEND Internal Medicine Rheumatology
DX: M06.09 Rheumatoid arthritis without rheumatoid factor, multiple sites (principal); Z79.899 Other long term (current) drug therapy
CPT/HCPCS: 36415; 80053; 85025; 85651; 86140

== ENCOUNTER 2020-06-10 10:53 | Outpatient (CLI) | payer MEDICARE, OTHER ==
[2020-06-10 11:12] LABS: BASOPHILS # (AUTO) 0.1 10^3/uL (0.0-0.1); BASOPHILS % (AUTO) 1.6 %; EOSINOPHILS # (AUTO) 0.5 10^3/uL (0.0-0.7); EOSINOPHILS % (AUTO) 8.4 %; HCT - HEMATOCRIT 38.6 % (37.0-47.0); HGB - HEMOGLOBIN 12.9 g/dL (12.0-16.0); LYMPHOCYTES # (AUTO) 2.7 10^3/uL (1.5-3.5); LYMPHOCYTES % (AUTO) 48.9 %; MEAN CORPUSCULAR HEMOGLOBIN 32.7 pg (27.0-31.0); MEAN CORPUSCULAR HGB CONC 33.4 g/dL (32.0-36.0); MEAN CORPUSCULAR VOLUME 97.7 fL (81.0-99.0); MEAN PLATELET VOLUME 8.6 fL (7.9-10.8); MONOCYTES # (AUTO) 0.3 10^3/uL (0.0-1.0); MONOCYTES % (AUTO) 6.1 %; NEUTROPHILS # (AUTO) 1.9 10^3/uL (1.5-6.6); NEUTROPHILS % (AUTO) 34.6 %; PLT - PLATELET COUNT 201 10^3/uL (130-450); RED BLOOD COUNT 3.95 10^6/uL (4.20-5.40); RED CELL DISTRIBUTION WIDTH 14.3 % (12.0-15.0); WHITE BLOOD COUNT 5.6 x10^3/uL (4.8-10.8)
[2020-06-10 11:29] LABS: ALBUMIN 4.1 g/dL (3.2-5.5); ALBUMIN/GLOBULIN RATIO 1.5 (1.0-2.2); ALKALINE PHOSPHATASE 62 IU/L (42-121); ALT ALANINE AMINOTRANSFERASE 37 IU/L (10-60); AST ASPARTATE AMINOTRANSFERASE 43 IU/L (10-42); BILIRUBIN,TOTAL 0.8 mg/dL (0.2-1.0); BUN - BLOOD UREA NITROGEN 22 mg/dL (6-20); CALCIUM 9.9 mg/dL (8.5-10.3); CARBON DIOXIDE - CO2 23 mmol/L (21-32); CHLORIDE 102 mmol/L (101-111); CHOL/HDL RATIO 3.3 (<4.4); CHOLESTEROL 220 mg/dL; GFR - MDRD 55 (>89); GLUCOSE 135 mg/dL (70-100); HDL CHOLESTEROL 67 mg/dL; LDL CHOLESTEROL,CALCULATED 113 mg/dL; LDL/HDL RATIO 1.7 (<4.4); POTASSIUM 3.7 mmol/L (3.5-5.0); SODIUM 139 mmol/L (135-145); TOTAL PROTEIN 6.9 g/dL (6.7-8.2); TRIGLYCERIDES 199 mg/dL; VLDL CHOLESTEROL 40 mg/dL
[2020-06-10 11:30] LABS: CREATININE,URINE 164.6 mg/dL; CRP - C-REACTIVE PROTEIN < 1.0 mg/dL (0-1.0); MICROALBUM/CREATININE RATIO,UR 12.8 ug/mg (<30.0); MICROALBUMIN,URINE 2.1 mg/dL (0-300.0)
[2020-06-10 11:52] LABS: ESTIMATED AVERAGE GLUCOSE 117 mg/dL (70-100); HEMOGLOBIN A1c% 5.7 % (4.27-6.07)
== END 2020-06-10 10:54 | disposition home or self-care (01) ==
LOC: LAB 10:53
PROVIDERS: ATTEND Nurse Practitioner
DX: E11.9 Type 2 diabetes mellitus without complications (principal); M06.09 Rheumatoid arthritis without rheumatoid factor, multiple sites; Z79.899 Other long term (current) drug therapy
CPT/HCPCS: 36415; 80048; 80053; 80061; 82043; 82570; 83036; 83721; 85025; 85651; 86140

== ENCOUNTER 2020-07-14 08:50 | Outpatient (CLI) | payer MEDICARE, OTHER ==
--- NOTE | 2020-07-15 11:11 | Mammography Report ---
BILATERAL DIGITAL SCREENING MAMMOGRAM 3D/2D: 07/14/2020 CLINICAL: Routine screening. Comparison is made to exams dated: 01/30/2017 mammogram, 02/25/2015 mammogram, and [facility] There are scattered fibroglandular elements in both breasts. There are a benign biopsy clip and post surgical scar in the right breast. There also is a benign po st surgical scar in the left breast. No significant masses, calcifications, or other findings are seen in either breast. There has been no significant interval change. IMPRESSION: BENIGN There is no mammographic evidence of malignancy. A 1 year screening mammogram is recommended. This exam was interpreted at Station ID: [id number]. NOTE: For mammograms, a report in lay terms will be sent to the patient. Approximately 15% of breast malignancies will not be visualized mammographically. In the management of a palpable breast mass, a negative mammogram must not discourage biopsy of a clinically suspicious lesion. Electronically Signed By: Janak hart/sea:07/14/2020 09:38:51 ACR BI-RADS Category 2: Benign Finding(s) 3342F PARENCHYMAL PATTERN: (A) - The breast(s) demonstrate(s) scattered fibroglandular densities. BI-RADS CATEGORY: (2) - 2 RECOMMENDATION: (ANNUAL) - Recommend routine annual screening mammography. [id number] 1 year screening LATERALITY: (B)
== END 2020-07-14 08:51 | disposition home or self-care (01) ==
LOC: DI 08:50
DX: Z12.31 Encounter for screening mammogram for malignant neoplasm of breast (principal)

== ENCOUNTER 2020-07-14 08:51 | Outpatient (CLI) | payer MEDICARE, OTHER ==
--- NOTE | 2020-07-14 11:07 | Ultrasound Report ---
PROCEDURE: Carotid Doppler Complete INDICATIONS: POST MENOPAUSAL, AORTIC VALVE REPLACEMENT, CAROTID TECHNIQUE: Color and pulse Doppler interrogation was performed of both carotid systems, with image documentation and velocity measurements. COMPARISON: None. FINDINGS: Right side: Brachial blood pressure: 150/50 mm Hg. Common carotid artery peak systolic velocity: 78 cm/sec. Internal carotid artery peak systolic velocity: 105 cm/sec. Internal carotid artery end diastolic velocity: 18 cm/sec. External carotid artery peak systolic velocity: 202 cm/sec. ICA/CCA peak systolic ratio: 1.35 . Quiñonez scale imaging description: Scattered calcified plaque at the bifurcation. Percent internal carotid artery stenosis: Less than 50% . Vertebral artery: Flow direction is antegrade. Left side: Brachial blood pressure: 124/51 mm Hg. Common carotid artery peak systolic velocity: 88 cm/sec. Internal carotid artery peak systolic velocity: 105 cm/sec. Internal carotid artery end diastolic velocity: 21 cm/sec. External carotid artery peak systolic velocity: 232 cm/sec. ICA/CCA peak systolic ratio: 1.19 . Quiñonez scale imaging description: Scattered plaque at the bifurcation Percent internal carotid artery stenosis: Less than 50% . Vertebral artery: Flow direction is antegrade. IMPRESSION: Bilateral less than 50% ICA stenoses. Of note, differential brachial blood pressures as above. This raises the possibility of upstream sten osis The estimate of stenosis included in the report of the imaging study was calculated using the NASCET method Reviewed by: Bryan Wang MD on 07/14/2020 11:05 AM PDT Approved by: Bryan Wang MD on 07/14/2020 11:05 AM PDT Station ID: [id number]
== END 2020-07-14 08:52 | disposition home or self-care (01) ==
LOC: DI 08:51
PROVIDERS: ATTEND Nurse Practitioner
DX: I65.29 Occlusion and stenosis of unspecified carotid artery (principal); I10 Essential (primary) hypertension; Z95.2 Presence of prosthetic heart valve
CPT/HCPCS: 93880

== ENCOUNTER 2020-07-29 14:37 | Emergency (ER) | payer MEDICARE, OTHER ==
[2020-07-29] MEDS ORDERED: ASPIRIN 325 MG TABLET PO STA (14:50)
[2020-07-29] MEDS ORDERED: NITROGLYCERIN 2% PASTE TOP STA (14:50)
--- NOTE | 2020-07-29 14:52 | ED Physician Documentation ---
PD HPI CHEST PAIN - Stated complaint Stated Complaint: CHEST DISCOMFORT - Chief complaint Chief Complaint: Cardiac - History obtained from History obtained from: Patient - Additional information Additional information: 74-year-old woman who had aortic valve replacement with a mechanical valve in 2003 and at the same time and a two-vessel coronary bypass presents with ongoing intermittent chest discomfort. She thought it was indigestion. Its been going on for the better part of a week. It is sometimes but sometimes not related to eating. Sometimes a burning sensation, sometimes a dull discomfort, generally in the left upper chest. There is no associated fatigue, shortness of breath. It is hard for her to say if there is an exertional component to it since she does not ever exert herself. She denies pedal edema or travel recently. No cough. Review of Systems Ten Systems: 10 systems reviewed and negative Constitutional: denies: Fever, Chills, Fatigue Cardiac: denies: Palpitations Respiratory: denies: Dyspnea, Cough PD PAST MEDICAL HISTORY - Past Medical History Cardiovascular: Hypertension, High cholesterol, Peripheral Vascular Disease, Valve disorder Respiratory: None Neuro: Migraines Endocrine/Autoimmune: Type 2 diabetes GI: GERD MEDICAL OR SURGICAL INSTRUMENT MAKER: None : None HEENT: None Musculoskeletal: Rheumatoid arthritis Derm: None - Past Surgical History Past Surgical History: Yes General: Colonoscopy Ortho: Knee replacement /MEDICAL OR SURGICAL INSTRUMENT MAKER: Hysterectomy Cardiovascular: Valve replacement (Mechanical aortic valve.), Vascular surgery - Present Medications Home Medications: Ambulatory Orders Medication Instructions Recorded Confirmed Amlodipine Besylate 5 mg PO DAILY 02/15/13 07/29/20 Aspirin [Aspir 81] 81 mg PO DAILY 02/15/13 07/29/20 Cetirizine [ZyrTEC] 10 mg PO DAILY 02/15/13 07/29/20 Losartan [Cozaar] 50 mg PO BID 02/15/13 07/29/20 Metoprolol Tartrate [Lopressor] 75 mg PO BID 02/15/13 07/29/20 Multivitamin [Multi-Vitamin Daily] 1 each PO DAILY 02/15/13 07/29/20 Omeprazole [Prilosec] 20 mg PO DAILY 02/15/13 07/29/20 Rosuvastatin Calcium [Crestor] 5 mg PO Q48H 02/15/13 07/29/20 Adalimumab [Humira(Cf)] 40 mg SUBQ Q7D 02/07/20 07/29/20 Gabapentin [Neurontin] 100 mg PO DAILY 02/07/20 07/29/20 Gabapentin [Neurontin] 400 mg PO QPM 02/07/20 07/29/20 Loperamide [Imodium] 2 mg PO ONCE PRN 02/07/20 07/29/20 Methotrexate [Methotrexate Sodium] 15 mg PO MO 02/07/20 07/29/20 SUMAtriptan [Imitrex] 25 mg PO Q2H PRN MDD 2 02/07/20 07/29/20 Triamterene/Hydrochlorothiazid 1 each PO DAILY 02/07/20 07/29/20 [Triamterene-Hctz 37.5-25 mg Tb] Warfarin [Coumadin] 5 mg PO DAILY 02/07/20 07/29/20 metFORMIN [Glucophage] 500 mg PO BIDWM 02/07/20 07/29/20 Nitroglycerin [Nitrostat] 0.4 mg SL Q5MIN PRN #1 bottle 07/29/20 - Allergies Allergies/Adverse Reactions: Allergies Allergy/AdvReac Type Severity Reaction Status Date / Time No Known Drug Allergies Allergy Verified 07/29/20 14:50 - Social History Does the pt smoke?: No Smoking Status: Never smoker Does the pt drink ETOH?: No Does the pt have substance abuse?: No - Immunizations Immunizations are current?: Yes - POLST Patient has POLST: No PD ED PE NORMAL - Vitals Vital signs reviewed: Yes - General General: Alert and oriented X 3, No acute distress - HEENT HEENT: PERRL, EOMI - Neck Neck: Supple, no meningeal sign, No bony TTP - Cardiac Cardiac: RRR, No murmur (Loud mechanical S2) - Respiratory Respiratory: No respiratory distress, Clear bilaterally - Abdomen Abdomen: Non tender - Back Back: No CVA TTP, No spinal TTP - Derm Derm: Normal color, Warm and dry - Extremities Extremities: No edema, No calf tenderness / cord - Neuro Neuro: Alert and oriented X 3, Normal speech Results - Vitals Vitals: Vital Signs - 24 hr 07/29/20 07/29/20 14:46 15:37 Temperature 36.8 C Heart Rate 72 67 Respiratory 18 20 Rate Blood Pressure 233/91 H 159/58 H O2 Saturation 97 96 Oxygen O2 Source Room air - EKG (time done) 1446 Rate: Rate (enter#) (68) Rhythm: NSR [place]: Normal Intervals: Normal PA QRS: Normal Ischemia: Q waves (anterior), T wave inversion (She is slight T wave inversion and depression in the inferior leads and lateral leads. Compared to last EKG on the chart dated February 13, 2020, it was actually worse then that it is now but she was septic then.) - Labs Labs: Laboratory Tests 07/29/20 07/29/20 07/29/20 15:27 15:27 15:27 WBC 5.6 RBC 4.15 L Hgb 13.8 Hct 39.7 MCV 95.7 MCH 33.3 H MCHC 34.8 RDW 13.6 Plt Count 217 MPV 8.7 Neut # (Auto) 2.6 Lymph # (Auto) 2.3 [place] # (Auto) 0.4 Eos # (Auto) 0.2 Baso # (Auto) 0.1 Absolute Nucleated RBC 0.00 Nucleated RBC % 0.0 PT 27.3 H INR 2.6 H Sodium 141 Potassium 3.9 Chloride 102 Carbon Dioxide 28 Anion Gap 11.0 BUN 19 Creatinine 0.9 Estimated GFR (MDRD) 62 L Glucose 141 H Calcium 10.4 H Total Bilirubin 0.8 AST 48 H ALT 47 Alkaline Phosphatase 63 Troponin I High Sens Total Protein 7.4 Albumin 4.4 Globulin 3.0 Albumin/Globulin Ratio 1.5 Lipase 31 07/29/20 15:27 WBC RBC Hgb Hct MCV MCH MCHC RDW Plt Count MPV Neut # (Auto) Lymph # (Auto) [place] # (Auto) Eos # (Auto) Baso # (Auto) Absolute Nucleated RBC Nucleated RBC % PT INR Sodium Potassium Chloride Carbon Dioxide Anion Gap BUN Creatinine Estimated GFR (MDRD) Glucose Calcium Total Bilirubin AST ALT Alkaline Phosphatase Troponin I High Sens 7.9 Total Protein Albumin Globulin Albumin/Globulin Ratio Lipase Procedures - General procedure General procedure: Patient difficult for IV access, I personally placed a 22g IV in R AC with realtime sono guidance. PD MEDICAL DECISION MAKING - ED course ED course: 74-year-old woman with atypical chest pain of several days duration. No evidence of ischemia here. She was offered in hospital observation for formal rule out and stress or to call her drop board worker, she declined both preferring to go home and follow-up as an outpatient as planned. Departure - Departure Disposition: Home, Self Care Clinical Impression: Adequate anticoagulation on anticoagulant therapy Chest pain Qualifiers: Chest pain type: unspecified Qualified Code(s): R07.9 - Chest pain, unspecified Condition: Good Record reviewed to determine appropriate education?: Yes Instructions: Nitroglycerin Fast Act Dc, ED Chest Pain Atypical Unkn Cause Prescriptions: Nitroglycerin [Nitrostat] 0.4 mg SL Q5MIN PRN #1 bottle PRN Reason: Chest Pain Comments: Follow-up with the drop board worker as scheduled. Return for any new or worsening symptoms. Continue current medications including daily baby aspirin. Your INR today was 2.6.
--- NOTE | 2020-07-29 15:03 | XRAY Report ---
PROCEDURE: Chest 1 View X-Ray INDICATIONS: Chest Pain TECHNIQUE: One view of the chest was acquired. COMPARISON: 02/07/2020 FINDINGS: Surgical changes and devices: Multiple median sternotomy wires are intact. Lungs and pleura: Lung bones are slightly diminished bilaterally. Minimal streaky bibasilar opacities favored to represent atelectasis. No focal consolidations. No substantial pleural effusion or pneumo thorax identified. Mediastinum: Mediastinal contours appear stable. Heart size is stable. Bones and chest wall: No suspicious bony lesions. Overlying soft tissues appear unremarkable. IMPRESSION: Slightly diminished lung volumes with associated streaky bibasilar opacities that are favored to repr esent atelectasis. Otherwise, no acute cardiopulmonary abnormalities. Overall, stable radiographic ev aluation of the chest. Reviewed by: Miguel Ángel Mata MD on 07/29/2020 3:02 PM PDT Approved by: Miguel Ángel Mata MD on 07/29/2020 3:02 PM PDT Station ID: [id number]
[2020-07-29 15:36] LABS: BASOPHILS # (AUTO) 0.1 10^3/uL (0.0-0.1); BASOPHILS % (AUTO) 1.1 %; EOSINOPHILS # (AUTO) 0.2 10^3/uL (0.0-0.7); EOSINOPHILS % (AUTO) 4.3 %; HCT - HEMATOCRIT 39.7 % (37.0-47.0); HGB - HEMOGLOBIN 13.8 g/dL (12.0-16.0); LYMPHOCYTES # (AUTO) 2.3 10^3/uL (1.5-3.5); LYMPHOCYTES % (AUTO) 41.3 %; MEAN CORPUSCULAR HEMOGLOBIN 33.3 pg (27.0-31.0); MEAN CORPUSCULAR HGB CONC 34.8 g/dL (32.0-36.0); MEAN CORPUSCULAR VOLUME 95.7 fL (81.0-99.0); MEAN PLATELET VOLUME 8.7 fL (7.9-10.8); MONOCYTES # (AUTO) 0.4 10^3/uL (0.0-1.0); MONOCYTES % (AUTO) 7.5 %; NEUTROPHILS # (AUTO) 2.6 10^3/uL (1.5-6.6); NEUTROPHILS % (AUTO) 45.6 %; PLT - PLATELET COUNT 217 10^3/uL (130-450); RED BLOOD COUNT 4.15 10^6/uL (4.20-5.40); RED CELL DISTRIBUTION WIDTH 13.6 % (12.0-15.0); WHITE BLOOD COUNT 5.6 x10^3/uL (4.8-10.8)
[2020-07-29 15:48] LABS: ALBUMIN 4.4 g/dL (3.2-5.5); ALBUMIN/GLOBULIN RATIO 1.5 (1.0-2.2); BILIRUBIN,TOTAL 0.8 mg/dL (0.2-1.0); CALCIUM 10.4 mg/dL (8.5-10.3); CREATININE 0.9 mg/dL (0.4-1.0); POTASSIUM 3.9 mmol/L (3.5-5.0); TOTAL PROTEIN 7.4 g/dL (6.7-8.2)
[2020-07-29 15:56] LABS: INR 2.6 (0.8-1.2); PT - PROTHROMBIN TIME 27.3 secs (9.9-12.6)
[2020-07-29 16:31] VITALS: BP 157/58
== END 2020-07-29 16:32 | disposition home or self-care (01) ==
LOC: ED 14:37
DX: R07.9 Chest pain, unspecified (principal); I10 Essential (primary) hypertension; E11.9 Type 2 diabetes mellitus without complications; Z79.84 Long term (current) use of oral hypoglycemic drugs; Z95.2 Presence of prosthetic heart valve; Z79.01 Long term (current) use of anticoagulants
CPT/HCPCS: 36415; 71045; 80053; 83690; 84484; 85025; 85610; 93005; 99284; A9270

== ENCOUNTER 2020-08-03 08:28 | Outpatient (CLI) | payer MEDICARE, OTHER | END 2020-08-03 08:29 | disposition home or self-care (01) | LOC: DI 08:28 | PROVIDERS: ATTEND Nurse Practitioner | DX: I51.7 Cardiomegaly (principal) | CPT/HCPCS: 93306 ==

== ENCOUNTER 2020-11-05 13:11 | Outpatient (CLI) | payer MEDICARE, OTHER ==
[2020-11-05 13:28] LABS: BASOPHILS # (AUTO) 0.1 10^3/uL (0.0-0.1); BASOPHILS % (AUTO) 1.4 %; EOSINOPHILS # (AUTO) 0.5 10^3/uL (0.0-0.7); EOSINOPHILS % (AUTO) 6.6 %; HCT - HEMATOCRIT 39.6 % (37.0-47.0); HGB - HEMOGLOBIN 13.4 g/dL (12.0-16.0); LYMPHOCYTES # (AUTO) 2.8 10^3/uL (1.5-3.5); LYMPHOCYTES % (AUTO) 39.6 %; MEAN CORPUSCULAR HGB CONC 33.8 g/dL (32.0-36.0); MEAN CORPUSCULAR VOLUME 97.5 fL (81.0-99.0); MEAN PLATELET VOLUME 8.6 fL (7.9-10.8); MONOCYTES # (AUTO) 0.6 10^3/uL (0.0-1.0); MONOCYTES % (AUTO) 7.7 %; NEUTROPHILS # (AUTO) 3.2 10^3/uL (1.5-6.6); NEUTROPHILS % (AUTO) 44.6 %; PLT - PLATELET COUNT 213 10^3/uL (130-450); RED BLOOD COUNT 4.06 10^6/uL (4.20-5.40); RED CELL DISTRIBUTION WIDTH 13.9 % (12.0-15.0); WHITE BLOOD COUNT 7.2 x10^3/uL (4.8-10.8)
[2020-11-05 13:46] LABS: ALBUMIN 4.5 g/dL (3.2-5.5); ALBUMIN/GLOBULIN RATIO 1.7 (1.0-2.2); ALKALINE PHOSPHATASE 54 IU/L (42-121); ALT ALANINE AMINOTRANSFERASE 43 IU/L (10-60); AST ASPARTATE AMINOTRANSFERASE 50 IU/L (10-42); BILIRUBIN,TOTAL 0.9 mg/dL (0.2-1.0); BUN - BLOOD UREA NITROGEN 21 mg/dL (6-20); CALCIUM 9.5 mg/dL (8.5-10.3); CARBON DIOXIDE - CO2 26 mmol/L (21-32); CHLORIDE 102 mmol/L (101-111); CHOL/HDL RATIO 2.9 (<4.4); CHOLESTEROL 202 mg/dL; GFR - MDRD 54 (>89); GLUCOSE 141 mg/dL (70-100); HDL CHOLESTEROL 69 mg/dL; LDL CHOLESTEROL,CALCULATED 98 mg/dL; LDL/HDL RATIO 1.4 (<4.4); POTASSIUM 4.2 mmol/L (3.5-5.0); SODIUM 140 mmol/L (135-145); TOTAL PROTEIN 7.1 g/dL (6.7-8.2); TRIGLYCERIDES 175 mg/dL; VLDL CHOLESTEROL 35 mg/dL
[2020-11-05 13:47] LABS: CRP - C-REACTIVE PROTEIN < 1.0 mg/dL (0-1.0)
== END 2020-11-05 13:12 | disposition home or self-care (01) ==
LOC: LAB 13:11
PROVIDERS: ATTEND Internal Medicine Cardiovascular Disease
DX: E78.5 Hyperlipidemia, unspecified (principal); M06.09 Rheumatoid arthritis without rheumatoid factor, multiple sites; Z79.899 Other long term (current) drug therapy
CPT/HCPCS: 36415; 80053; 80061; 83721; 85025; 85651; 86140

== ENCOUNTER 2021-01-13 11:23 | Outpatient (CLI) | payer MEDICARE, OTHER ==
[2021-01-13 12:00] VITALS: BP 143/59
--- NOTE | 2021-01-13 12:00 | SLEEP CARE CONSULTATION ---
Information from patient questionnaire entered by Solange Mcdonald. I have reviewed and concur with the information entered by Solange Mcdonald. This document represents the service I personally performed and the decisions made by me, Jeannine Gaytan ARNP. History of Present Illness Service Date and Time: 01/13/2021 1123 Previous diagnosis: Very Severe, Obstructive Sleep Apnea-Hypopnea Syndrome AHI: 61.6 (in 2019) Reason for follow up: annual Equipment type: CPAP Equipment obtained from: [facility] (getting supplies as needed; was unable to get mask refitting after last appt) Mask style: Full face Backup mask available: Yes (old mask) Last cushion change: 2 weeks Prior sleep studies: Yes Year and Where: 2018 - [facility] , 2004 in [place], [place] Type of Sleep Study: Polysomnography HPI additional information: CARLOS COLEMAN was diagnosed to have very severe, AHI 61.6, obstructive sleep apnea-hypopnea syndrome and returned today for CPAP therapy annual follow-up. Sleep Study - Results Type of Sleep Study: Polysomnography Prior sleep studies: Yes Year and Where: 2018 - [facility] , 2004 in [place], [place] CPAP Compliance Data - Data Reviewed with Patient Average duration of nightly device use: 8 hours 48 minutes Compliance rate %: 100 Current pressure setting (cmH2O): 8-13 Average residual AHI: 2.9 Central apnea: .7 Obstructive apnea: 1.5 Hypopnea: .6 Subjective Patient concerns: reports: air blowing in eyes (no changes from last year; waking up with crusts in eyes). denies: aerophagia, mask discomfort, mask leak noise, condensation in mask/hose, nasal congestion, dry mouth, nose, throat, epistaxis, other Observed to snore while using device: No Current pressure setting perceived as: comfortable On therapy, patient: reports: sleeping better, awakening more refreshed, being more awake and alert during the day, more rested overall. denies: drowsiness while driving Initial [place] Sleepiness Scale score: 6 (in 2019) Current [place] Sleepiness Scale score: 4 Allergies and Home Medications Home medication list reviewed: Yes (Zetia 10mg Qday) Review of Systems Review of systems same as previous: Yes (no changes) Physical Exam Blood Pressure: 143/59 (right) Cuff size: wrist Heart Rate: 63 O2 Saturation: 98 Height: 5 ft 3 in Weight: 254 lb Body Mass Index: 44.9 BMI Classification: Morbidly Obese Impression and Plan 1. Obstructive Sleep Apnea-Hypopnea Syndrome, very severe, with excellent treatment compliance and good apnea control. On CPAP therapy, the patient has better sleep quality and is more rested overall. Patient is satisfied with current pressure setting and CPAP therapy. She continues to have trouble with air leaking into her eyes. She will wake up most mornings with crusts in her eyes. She does not use any eye drops for eye dryness. Today she has a subconjunctival hemorrhage on the conjunctiva of her left eye that she says had been there for about 2 weeks and she denies a fall or coughing hard recently. Last year she received a prescription for a mask refitting to try a different style that would seal better and reduce or eliminate leaking into her eyes. There was trouble with the DME being able to accept her prescription despite a few attempts and after about 4 months she gave up. She is willing to try again. I will write for her to try a ResMed AirFit F30i full face mask with a mask refitting as needed. She just got supplies so may have to wait for eligibility, she understands this. In the meantime, I advised her to try a sleeping mask to cover her eyes to reduce air leaking into her eyes. She voiced understanding and will think about it. Patient's apnea severity and rationale for treatment to reduce apnea, improve sleep quality and reduce cardiovascular and cerebrovascular events was reviewed. I also reviewed the benefit of consistent device use of CPAP for hypertension. Patient was encouraged to lose weight for their overall health and to reduce apneas. * Continue auto CPAP pressure at 8-13 cmH2O * Try ResMed AirFit F30i full face mask to reduce air leaking in eyes * Notify me if snoring with mask or feeling that the pressure is too much or too little * Attempt to lose weight * Call this office if any problems using CPAP * Return for follow up in 1 year, or sooner if concerns arise Counseling Topics: Spare mask, Weight loss health impact Visit Type: In Office Time Spent with Patient (minutes): 26 Provider Statement: I spent 100% of the Face to Face Visit with the patient with greater than 50% spent counseling the patient and coordination of care.
== END 2021-01-13 11:24 | disposition home or self-care (01) ==
LOC: SC 11:23
PROVIDERS: ATTEND Nurse Practitioner Family
DX: G47.33 Obstructive sleep apnea (adult) (pediatric) (principal); E66.01 Morbid (severe) obesity due to excess calories; Z68.41 Body mass index [BMI] 40.0-44.9, adult
CPT/HCPCS: 99213; G0463; 99212

== ENCOUNTER 2021-03-09 11:19 | Outpatient (CLI) | payer MEDICARE, OTHER ==
[2021-03-09 12:06] LABS: BASOPHILS # (AUTO) 0.1 10^3/uL (0.0-0.1); BASOPHILS % (AUTO) 1.2 %; EOSINOPHILS # (AUTO) 0.4 10^3/uL (0.0-0.7); HCT - HEMATOCRIT 36.2 % (37.0-47.0); HGB - HEMOGLOBIN 12.4 g/dL (12.0-16.0); LYMPHOCYTES # (AUTO) 2.4 10^3/uL (1.5-3.5); LYMPHOCYTES % (AUTO) 39.8 %; MEAN CORPUSCULAR HEMOGLOBIN 33.9 pg (27.0-31.0); MEAN CORPUSCULAR HGB CONC 34.3 g/dL (32.0-36.0); MEAN CORPUSCULAR VOLUME 98.9 fL (81.0-99.0); MEAN PLATELET VOLUME 9.3 fL (7.9-10.8); MONOCYTES # (AUTO) 0.5 10^3/uL (0.0-1.0); MONOCYTES % (AUTO) 8.5 %; NEUTROPHILS # (AUTO) 2.7 10^3/uL (1.5-6.6); NEUTROPHILS % (AUTO) 44.2 %; PLT - PLATELET COUNT 193 10^3/uL (130-450); RED BLOOD COUNT 3.66 10^6/uL (4.20-5.40); RED CELL DISTRIBUTION WIDTH 13.9 % (12.0-15.0)
[2021-03-09 12:23] LABS: ALBUMIN/GLOBULIN RATIO 1.5 (1.0-2.2); ALKALINE PHOSPHATASE 63 IU/L (42-121); ALT ALANINE AMINOTRANSFERASE 36 IU/L (10-60); AST ASPARTATE AMINOTRANSFERASE 37 IU/L (10-42); BILIRUBIN,TOTAL 0.8 mg/dL (0.2-1.0); BUN - BLOOD UREA NITROGEN 31 mg/dL (6-20); CALCIUM 9.2 mg/dL (8.5-10.3); CARBON DIOXIDE - CO2 24 mmol/L (21-32); CHLORIDE 102 mmol/L (101-111); CREATININE 1.1 mg/dL (0.4-1.0); GFR - MDRD 49 (>89); GLUCOSE 143 mg/dL (70-100); POTASSIUM 4.1 mmol/L (3.5-5.0); SODIUM 139 mmol/L (135-145); TOTAL PROTEIN 6.7 g/dL (6.7-8.2)
[2021-03-09 12:42] LABS: CRP - C-REACTIVE PROTEIN < 1.0 mg/dL (0-1.0)
== END 2021-03-09 11:20 | disposition home or self-care (01) ==
LOC: LAB 11:19
PROVIDERS: ATTEND Internal Medicine Rheumatology
DX: M06.09 Rheumatoid arthritis without rheumatoid factor, multiple sites (principal); Z79.899 Other long term (current) drug therapy
CPT/HCPCS: 36415; 80053; 81599; 85025; 85651; 86140

== ENCOUNTER 2021-04-07 10:52 | Outpatient (CLI) | payer MEDICARE, OTHER | END 2021-04-07 10:53 | disposition home or self-care (01) | LOC: LAB 10:52 | PROVIDERS: ATTEND Internal Medicine | DX: M06.09 Rheumatoid arthritis without rheumatoid factor, multiple sites (principal); Z79.899 Other long term (current) drug therapy | CPT/HCPCS: 81599; 86317; 86480; 86704; 86803; 87340 ==

== ENCOUNTER 2021-04-11 08:00 | Outpatient (CLI) | payer MEDICARE, OTHER ==
[2021-04-11 18:24] LABS: BILIRUBIN,URINE NEGATIVE (NEGATIVE); GLUCOSE, URINE (UA) NEGATIVE (NEGATIVE); KETONES,URINE (UA) NEGATIVE (NEGATIVE); LEUKOCYTE ESTERASE, URINE MODERATE (NEGATIVE); NITRITE,URINE POSITIVE (NEGATIVE); OCCULT BLOOD,URINE SMALL (NEGATIVE); PROTEIN,URINE NEGATIVE (NEGATIVE); UROBILINOGEN,URINE 0.2 (NORMAL) E.U./dL (NORMAL)
[2021-04-11 19:55] LABS: CLARITY,URINE SL. CLOUDY (CLEAR)
[2021-04-11 19:56] LABS: BACTERIA,URINE Many /HPF (None Seen); RBC,URINE 0-5 /HPF (0-5); SQUAMOUS EPITHELIAL CELL,UR RARE Squamous (<= Few); WBC,URINE >25 /HPF (0-5)
== END 2021-04-11 23:59 ==
LOC: LAB.N 08:00
PROVIDERS: ATTEND Emergency Medicine
DX: N39.0 Urinary tract infection, site not specified (principal)
CPT/HCPCS: 81001; 87086; 87181

== ENCOUNTER 2021-05-31 10:44 | Outpatient (CLI) | payer MEDICARE, OTHER ==
[2021-05-31 11:22] LABS: BASOPHILS # (AUTO) 0.1 10^3/uL (0.0-0.1); BASOPHILS % (AUTO) 1.2 %; EOSINOPHILS # (AUTO) 0.6 10^3/uL (0.0-0.7); EOSINOPHILS % (AUTO) 9.4 %; HCT - HEMATOCRIT 38.5 % (37.0-47.0); HGB - HEMOGLOBIN 13.4 g/dL (12.0-16.0); LYMPHOCYTES # (AUTO) 2.4 10^3/uL (1.5-3.5); LYMPHOCYTES % (AUTO) 41.1 %; MEAN CORPUSCULAR HEMOGLOBIN 33.8 pg (27.0-31.0); MEAN CORPUSCULAR HGB CONC 34.8 g/dL (32.0-36.0); MEAN CORPUSCULAR VOLUME 97.2 fL (81.0-99.0); MEAN PLATELET VOLUME 8.9 fL (7.9-10.8); MONOCYTES # (AUTO) 0.5 10^3/uL (0.0-1.0); MONOCYTES % (AUTO) 8.2 %; NEUTROPHILS # (AUTO) 2.4 10^3/uL (1.5-6.6); NEUTROPHILS % (AUTO) 39.9 %; PLT - PLATELET COUNT 183 10^3/uL (130-450); RED BLOOD COUNT 3.96 10^6/uL (4.20-5.40); RED CELL DISTRIBUTION WIDTH 13.2 % (12.0-15.0); WHITE BLOOD COUNT 5.9 x10^3/uL (4.8-10.8)
[2021-05-31 11:31] LABS: CREATININE,URINE 77.4 mg/dL; MICROALBUM/CREATININE RATIO,UR 16.8 ug/mg (<30.0); MICROALBUMIN,URINE 1.3 mg/dL (0-300.0)
[2021-05-31 11:48] LABS: CHOL/HDL RATIO 2.4 (<4.4); CHOLESTEROL 159 mg/dL; HDL CHOLESTEROL 65 mg/dL; LDL CHOLESTEROL,CALCULATED 62 mg/dL; TRIGLYCERIDES 160 mg/dL; VLDL CHOLESTEROL 32 mg/dL
[2021-05-31 11:49] LABS: THYROID STIMULATING HORMONE 1.53 uIU/mL (0.34-5.60)
[2021-05-31 12:01] LABS: ALBUMIN/GLOBULIN RATIO 1.4 (1.0-2.2); ALKALINE PHOSPHATASE 42 IU/L (42-121); ALT ALANINE AMINOTRANSFERASE 31 IU/L (10-60); AST ASPARTATE AMINOTRANSFERASE 40 IU/L (10-42); BILIRUBIN,TOTAL 0.9 mg/dL (0.2-1.0); BUN - BLOOD UREA NITROGEN 16 mg/dL (6-20); CREATININE 1.1 mg/dL (0.4-1.0); GFR - MDRD 49 (>89); TOTAL PROTEIN 6.8 g/dL (6.7-8.2)
[2021-05-31 12:03] LABS: CRP - C-REACTIVE PROTEIN < 1.0 mg/dL (0-1.0)
[2021-05-31 12:06] LABS: CALCIUM 9.4 mg/dL (8.5-10.3); CARBON DIOXIDE - CO2 24 mmol/L (21-32); CHLORIDE 98 mmol/L (101-111); GLUCOSE 128 mg/dL (70-100); SODIUM 137 mmol/L (135-145)
[2021-05-31 12:22] LABS: ESTIMATED AVERAGE GLUCOSE 111 mg/dL (70-100); HEMOGLOBIN A1c% 5.5 % (4.27-6.07)
== END 2021-05-31 10:45 | disposition home or self-care (01) ==
LOC: LAB 10:44
PROVIDERS: ATTEND Internal Medicine
DX: E78.5 Hyperlipidemia, unspecified (principal); E11.9 Type 2 diabetes mellitus without complications; M06.09 Rheumatoid arthritis without rheumatoid factor, multiple sites; Z79.899 Other long term (current) drug therapy
CPT/HCPCS: 36415; 80053; 80061; 82043; 82570; 83036; 83721; 84443; 85025; 85651; 86140

== ENCOUNTER 2021-06-16 09:07 | Day surgery (SDC) | payer MEDICARE, OTHER ==
[~2021-06-16 09:07] MED LIST: CYCLOPENTOLATE 1% OPHTH DROPS 2 ML ONE; KETOROLAC 0.45% OPHTH DROPS ONE; PHENYLEPHRINE 2.5% OPHTH 2 ML DROPS ONE; PROPARACAINE 0.5% OPHTH DROPS 15 ML ONE
[2021-06-16] MEDS ORDERED: LACTATED RINGERS 1,000 ML IV ONE ×3 (09:12→10:23)
[2021-06-16] MEDS ORDERED: fentaNYL 100 MCG/2 ML VIAL ONE (09:48)
[2021-06-16] MEDS ORDERED: MIDAZOLAM 2 MG/2 ML VIAL ONE (09:48)
--- NOTE | 2021-06-16 10:02 | ANESTHESIA ---
Pre-Anesthesia VS, & Labs - Diagnosis left senile combined cataract - Procedure Left eye cataract extraction with IOL implant Vital Signs: Temp Pulse Resp BP Pulse Ox 36.7 C 65 22 152/55 H 96 06/16/21 09:26 06/16/21 09:26 06/16/21 09:26 06/16/21 09:26 06/16/21 09:26 Height: 5 ft 2 in Weight (kg): 114.6 kg Body Mass Index: 46.2 BMI Classification: Morbidly Obese - NPO >8 hours - Is Patient ?: No Home Medications and Allergies Home Medications: Ambulatory Orders Ezetimibe [Zetia] 10 mg PO QD 06/16/21 Folic Acid 3 mg PO DAILY 06/16/21 Amlodipine Besylate 5 mg PO DAILY 02/15/13 Aspirin [Aspir 81] 81 mg PO DAILY 02/15/13 Cetirizine [ZyrTEC] 10 mg PO DAILY 02/15/13 Losartan [Cozaar] 50 mg PO BID 02/15/13 Metoprolol Tartrate [Lopressor] 75 mg PO BID 02/15/13 Multivitamin [Multi-Vitamin Daily] 1 each PO DAILY 02/15/13 Omeprazole [Prilosec] 20 mg PO DAILY 02/15/13 Rosuvastatin Calcium [Crestor] 5 mg PO Q48H 02/15/13 Adalimumab [Humira(Cf)] 40 mg SUBQ Q7D 02/07/20 Gabapentin [Neurontin] 100 mg PO DAILY 02/07/20 Gabapentin [Neurontin] 400 mg PO QPM 02/07/20 Loperamide [Imodium] 2 mg PO ONCE PRN 02/07/20 Methotrexate [Methotrexate Sodium] 15 mg PO MO 02/07/20 SUMAtriptan [Imitrex] 25 mg PO Q2H PRN MDD 2 02/07/20 Triamterene/Hydrochlorothiazid [Triamterene-Hctz 37.5-25 mg Tb] 1 each PO DAILY 02/07/20 Warfarin [Coumadin] 5 mg PO DAILY 02/07/20 metFORMIN [Glucophage] 500 mg PO BIDWM 02/07/20 Ezetimibe [Zetia] 10 mg PO QD 06/16/21 Folic Acid 3 mg PO DAILY 06/16/21 Allergies/Adverse Reactions: Allergies Allergy/AdvReac Type Severity Reaction Status Date / Time No Known Drug Allergies Allergy Verified 06/16/21 09:42 Anes History & Medical History - Anesthetic History Anesthesia Complications: reports: No previous complications - Medical History Cardiovascular: reports: Hypertension, High cholesterol, Peripheral Vascular Disease, Valve disorder (s/p AVR replacement 2003) Pulmonary: reports: None Gastrointestinal: reports: GERD Urinary: reports: None Neuro: reports: Migraines Musculoskeletal: reports: Rheumatoid arthritis Endocrine/Autoimmune: reports: Type 2 diabetes Blood Disorders: reports: None Skin: reports: None Smoking Status: Never smoker History of Cancer?: Yes (endometrial s/p hysterectomy) - Surgical History General: reports: Colonoscopy Cardiothoracic: reports: Valve replacement (AVR), Cardiac catheterization Gynecologic: reports: Hysterectomy Orthopedic: reports: Knee replacement Exam General: Alert, Oriented x3, Cooperative, No acute distress Dental: WNL Mouth Openin Fingerbreadth Neck Mobility: Normal Mallampati classification: II Mental/Cognitive Status: Alert/Oriented X3, Normal for patient Plan Anesthesia Type: MAC Consent for Procedure(s) Verified and Reviewed: Yes Code Status: Attempt Resuscitation ASA classification: 3-Severe systemic disease Is this case an emergency?: No
[2021-06-16] MEDS ORDERED: BRIMONIDINE 0.2% OPHTH DROPS 5 ML OPTH ONE (10:16)
[2021-06-16] MEDS ORDERED: EPINEPHrine 1 MG/ML AMP IR ONE (10:17)
[2021-06-16] MEDS ORDERED: TIMOLOL 0.5% OPHTH DROPS OPTH ONE (10:17)
[2021-06-16] MEDS ORDERED: BSS/LIDOCAINE/EPINEPHRINE 1 ML SYRINGE IO ONE (10:17)
[2021-06-16] MEDS ORDERED: TRIAMCIN/MOXIFLOX OPHTHALMIC 0.6 ML VIAL IO ONE ×2 (10:17→11:25)
[2021-06-16] MEDS ORDERED: PROPARACAINE 0.5% OPHTH DROPS 15 ML EACHEYE ONE (10:17)
[2021-06-16] MEDS ORDERED: VANCOMYCIN OPHTHALMI 8MG/0.8ML 8 MG/0.8 ML SYRINGE IO ONE (10:17)
--- NOTE | 2021-06-16 10:39 | OPERATIVE REPORT ---
Operative Report - Other Other Information/Narrative: Date of Surgery: 06/16/21 Preop Dx: Visually significant cataract left eye. This was the first cataract surgery. Postop Dx: Same Procedure: Phacoemulsification with posterior chamber intraocular lens implant left eye Surgeon: Dr. Maurice aH Anesthesia: Monitored anesthesia care Complications: None Operative Indications: This is a 75-year-old F with progressive vision loss in the left eye due to 2+ nuclear sclerotic and 2-3+ cortical cataract. Best corrected visual acuity was 20/30 with glare to 20/60 vision in the left eye. Indications for surgery were: - Difficulty seeing words on a computer screen - Difficulty seeing words, closed captions, or game scores on TV - Difficulty seeing street signs - Difficulty driving in low light or at night - Difficulty driving at night because of headlights from other vehicles - Difficulty with glare or bright lights in any situation The patient was consented at length concerning the risks and benefits of cataract surgery after which the patient expressed a desire to proceed with surgery. Operative Procedure: The patient was taken into OR#3 and placed under monitored anesthesia care. A surgical time-out was conducted confirming correct patient, correct procedure, and correct surgical site. The patient was given topical anesthesia and then prepped and draped in the usual sterile fashion. The eye was entered at the 6 and 3 oclock positions. Intracameral Shugarcaine was injected into the anterior chamber followed by a dispersive viscoelastic. A con tinuous-tear curvilinear capsulorhexis was performed. The nucleus was hydrodissected and phacoemulsified. The cortex was evacuated using automated infusion and aspiration. A cohesive viscoelastic was injected into the capsular bag and a 21.0 diopter intraocular lens was inserted into the bag. Infusion and aspiration were used to evacuate the viscoelastic materials from the eye. The wounds were hydrated and the eye inflated to physiologic pressure using balanced salt solution. Approximately 0.25ml of a mixture of triamcinolone and moxifloxacin was injected trans-sclerally into the vitreous in the inferotemporal quadrant using a 30 gauge cannula. An additional 0.55ml of a mixture of triamcinolone, moxifloxacin, and vancomycin was injected subconjunctivally in the superior quadrant for infection and inflammation prophylaxis. Wound integrity was checked with Weck-Dora sponges. The patient was taken from the operating room in good condition and given post-op instructions.
[2021-06-16 10:42] VITALS: BP 116/56
[2021-06-16] MEDS ORDERED: BRIMONIDINE 0.2% OPHTH DROPS 5 ML ONE (11:25)
[2021-06-16] MEDS ORDERED: TIMOLOL 0.5% OPHTH DROPS ONE (11:25)
[2021-06-16] MEDS ORDERED: EPINEPHrine 1 MG/ML AMP ONE (11:25)
[2021-06-16] MEDS ORDERED: BSS/LIDOCAINE/EPINEPHRINE 1 ML VIAL ONE (11:25)
--- NOTE | 2021-06-16 13:42 | ANESTHESIA POST OP EVALUATION ---
Anesthesia Post Eval - Post Anesthesia Eval Vitals: Last Vital Signs Temp 36.5 C 06/16/21 10:39 Pulse 66 06/16/21 10:39 Resp 20 06/16/21 10:39 BP 116/56 L 06/16/21 10:39 Pulse Ox 96 06/16/21 10:39 CV Function Including HR & BP: Stable Pain Control: Satisfactory Nausea & Vomiting: Negative Mental Status: Baseline Respiratory Status: Airway Patent Hydration Status: Satisfactory Anesthesia Complications: None
== END 2021-06-16 09:08 | disposition home or self-care (01) ==
LOC: SDS 09:07
PROVIDERS: ATTEND Ophthalmology
DX: E11.36 Type 2 diabetes mellitus with diabetic cataract (principal); H25.812 Combined forms of age-related cataract, left eye; Z79.84 Long term (current) use of oral hypoglycemic drugs; G47.33 Obstructive sleep apnea (adult) (pediatric); E66.01 Morbid (severe) obesity due to excess calories; Z68.42 Body mass index [BMI] 45.0-49.9, adult
CPT/HCPCS: 66984; A9270; J3490; J7120

== ENCOUNTER 2021-07-21 08:19 | Day surgery (SDC) | payer MEDICARE, OTHER ==
[2021-07-21] MEDS ORDERED: LACTATED RINGERS 1,000 ML IV ONE ×2 (08:26→10:35)
[2021-07-21] MEDS ORDERED: KETOROLAC 0.45% OPHTH DROPS ONE (08:28)
[2021-07-21] MEDS ORDERED: PROPARACAINE 0.5% OPHTH DROPS 15 ML ONE (08:29)
[2021-07-21] MEDS ORDERED: PHENYLEPHRINE 2.5% OPHTH 2 ML DROPS ONE (08:29)
[2021-07-21] MEDS ORDERED: CYCLOPENTOLATE 1% OPHTH DROPS 2 ML ONE (08:29)
--- NOTE | 2021-07-21 09:12 | ANESTHESIA ---
Pre-Anesthesia VS, & Labs - Diagnosis right eye senile combined cataract - Procedure right eye cataract extraction with IOL implant Vital Signs: Temp Pulse Resp BP Pulse Ox 36.2 C L 68 18 164/92 H 97 07/21/21 08:26 07/21/21 08:26 07/21/21 08:26 07/21/21 08:26 07/21/21 08:26 Height: 5 ft 3 in Weight (kg): 115.7 kg Body Mass Index: 45.1 BMI Classification: Morbidly Obese - NPO >8 hours - Is Patient ?: No Home Medications and Allergies Amlodipine Besylate 5 mg PO DAILY 02/15/13 Aspirin [Aspir 81] 81 mg PO DAILY 02/15/13 Cetirizine [ZyrTEC] 10 mg PO DAILY 02/15/13 Losartan [Cozaar] 50 mg PO BID 02/15/13 Metoprolol Tartrate [Lopressor] 75 mg PO BID 02/15/13 Multivitamin [Multi-Vitamin Daily] 1 each PO DAILY 02/15/13 Omeprazole [Prilosec] 20 mg PO DAILY 02/15/13 Rosuvastatin Calcium [Crestor] 5 mg PO Q48H 02/15/13 Adalimumab [Humira(Cf)] 40 mg SUBQ Q7D 02/07/20 Gabapentin [Neurontin] 100 mg PO DAILY 02/07/20 Gabapentin [Neurontin] 400 mg PO QPM 02/07/20 Loperamide [Imodium] 2 mg PO ONCE PRN 02/07/20 Methotrexate [Methotrexate Sodium] 15 mg PO MO 02/07/20 SUMAtriptan [Imitrex] 25 mg PO Q2H PRN MDD 2 02/07/20 Triamterene/Hydrochlorothiazid [Triamterene-Hctz 37.5-25 mg Tb] 1 each PO DAILY 02/07/20 Warfarin [Coumadin] 5 mg PO DAILY 02/07/20 metFORMIN [Glucophage] 500 mg PO BIDWM 02/07/20 Ezetimibe [Zetia] 10 mg PO QD 06/16/21 Folic Acid 3 mg PO DAILY 06/16/21 Allergies/Adverse Reactions: Allergies Allergy/AdvReac Type Severity Reaction Status Date / Time No Known Drug Allergies Allergy Verified 06/16/21 09:42 Anes History & Medical History - Medical History Cardiovascular: reports: Hypertension, High cholesterol, Peripheral Vascular Disease, Valve disorder Pulmonary: reports: Sleep apnea, CPAP use Gastrointestinal: reports: GERD Urinary: reports: None Neuro: reports: Migraines Musculoskeletal: reports: Rheumatoid arthritis Endocrine/Autoimmune: reports: Type 2 diabetes Blood Disorders: reports: None Skin: reports: None Smoking Status: Never smoker Psychosocial: reports: No issues indicated History of Cancer?: Yes (endometrial no chemo/radiation) - Surgical History General: reports: Colonoscopy Eyes Ears Nose Throat (EENT): reports: Cataracts Cardiothoracic: reports: Valve replacement, Cardiac catheterization Gynecologic: reports: Hysterectomy Orthopedic: reports: Knee replacement Exam General: Alert, Oriented x3, Cooperative, No acute distress Dental: WNL Mouth Openin Fingerbreadth Neck Mobility: Normal Mallampati classification: III Thyromental Distance: 4-6 cm Mental/Cognitive Status: Alert/Oriented X3, Normal for patient Plan Anesthesia Type: MAC Consent for Procedure(s) Verified and Reviewed: Yes Code Status: Attempt Resuscitation ASA classification: 3-Severe systemic disease Is this case an emergency?: No
[2021-07-21] MEDS ORDERED: BRIMONIDINE 0.2% OPHTH DROPS 5 ML OPTH ONE (10:05)
[2021-07-21] MEDS ORDERED: TRIAMCIN/MOXIFLOX OPHTHALMIC 0.6 ML VIAL IO ONE ×2 (10:06→11:31)
[2021-07-21] MEDS ORDERED: EPINEPHrine 1 MG/ML AMP IR ONE (10:06)
[2021-07-21] MEDS ORDERED: TIMOLOL 0.5% OPHTH DROPS OPTH ONE (10:06)
[2021-07-21] MEDS ORDERED: BSS/LIDOCAINE/EPINEPHRINE 1 ML SYRINGE IO ONE (10:06)
[2021-07-21] MEDS ORDERED: PROPARACAINE 0.5% OPHTH DROPS 15 ML EACHEYE ONE (10:06)
[2021-07-21] MEDS ORDERED: VANCOMYCIN OPHTHALMI 8MG/0.8ML 8 MG/0.8 ML SYRINGE IO ONE (10:07)
[2021-07-21] MEDS ORDERED: MIDAZOLAM 2 MG/2 ML VIAL ONE (10:09)
--- NOTE | 2021-07-21 10:22 | ANESTHESIA POST OP EVALUATION ---
Anesthesia Post Eval - Post Anesthesia Eval Vitals: Last Vital Signs Temp 36.2 C L 07/21/21 08:26 Pulse 68 07/21/21 08:26 Resp 18 07/21/21 08:26 BP 164/92 H 07/21/21 08:26 Pulse Ox 97 07/21/21 08:26 CV Function Including HR & BP: Stable Pain Control: Satisfactory Nausea & Vomiting: Negative Mental Status: Baseline Respiratory Status: Airway Patent Hydration Status: Satisfactory Anesthesia Complications: None
--- NOTE | 2021-07-21 10:28 | OPERATIVE REPORT ---
Operative Report - Other Other Information/Narrative: Date of Surgery: 07/21/21 Preop Dx: Visually significant cataract right eye. Cataract surgery was performed in the left eye on [id number]. Postop Dx: Same Procedure: Phacoemulsification with posterior chamber intraocular lens implant right eye Surgeon: Dr. Maurice Ha Anesthesia: Monitored anesthesia care Complications: None Operative Indications: This is a 75-year-old F with progressive vision loss in the right eye due to 2+ nuclear sclerotic and 3+ cortical cataract. Best corrected visual acuity was 20/40 with glare to 20/80 vision in the right eye. Indications for surgery were: - Difficulty seeing words on a computer screen - Difficulty seeing words, closed captions, or game scores on TV - Difficulty driving in low light or at night - Difficulty driving at night because of headlights from other vehicles - Difficulty with glare or bright lights in any situation The patient was consented at length concerning the risks and benefits of cataract surgery after which the patient expressed a desire to proceed with surgery. Operative Procedure: The patient was taken into OR#3 and placed under monitored anesthesia care. A surgical time-out was conducted confirming correct patient, correct procedure, and correct surgical site. The patient was given topical anesthesia and then prepped and draped in the usual sterile fashion. The eye was entered at the 6 and 3 oclock positions. Intracameral Shugarcaine was injected into the anterior chamber followed by a dispersive viscoelastic. A continuous-tear curvilinear capsulorhexis was performed. The nucleus was hydrodissected and phacoemulsified. The cortex was evacuated using automated infusion and aspiration. A cohesive viscoelastic was injected into the capsular bag and a 20.5 diopter intraocular lens was inserted into the bag. Infusion and aspiration were used to evacuate the viscoelastic materials from the eye. The wounds were hydrated and the eye inflated to physiologic pressure using balanced salt solution. Approximately 0.25ml of a mixture of triamcinolone and moxifloxacin was injected trans-sclerally into the vitreous in the inferotemporal quadrant using a 30 gauge cannula. An additional 0.55ml of a mixture of triamcinolone, moxifloxacin, and vancomycin was injected subconjunctivally in the superior quadrant for infection and inflammation prophylaxis. Wound integrity was checked with Weck-Dora sponges. The patient was taken from the operating room in good condition and given post-op instructions.
[2021-07-21 10:46] VITALS: BP 137/54
[2021-07-21] MEDS ORDERED: BRIMONIDINE 0.2% OPHTH DROPS 5 ML ONE (11:32)
[2021-07-21] MEDS ORDERED: BSS/LIDOCAINE/EPINEPHRINE 1 ML VIAL ONE (11:32)
[2021-07-21] MEDS ORDERED: TIMOLOL 0.5% OPHTH DROPS ONE (11:32)
== END 2021-07-21 08:20 | disposition home or self-care (01) ==
LOC: SDS 08:19
PROVIDERS: ATTEND Ophthalmology
DX: E11.36 Type 2 diabetes mellitus with diabetic cataract (principal); H25.811 Combined forms of age-related cataract, right eye; Z98.42 Cataract extraction status, left eye; E66.01 Morbid (severe) obesity due to excess calories; Z68.42 Body mass index [BMI] 45.0-49.9, adult; G47.30 Sleep apnea, unspecified
CPT/HCPCS: 66984; A9270; J3490; J7120

== ENCOUNTER 2021-09-20 11:13 | Outpatient (CLI) | payer MEDICARE, OTHER ==
[2021-09-20 11:25] LABS: BASOPHILS # (AUTO) 0.1 10^3/uL (0.0-0.1); BASOPHILS % (AUTO) 0.9 %; EOSINOPHILS # (AUTO) 0.6 10^3/uL (0.0-0.7); EOSINOPHILS % (AUTO) 6.8 %; HGB - HEMOGLOBIN 12.8 g/dL (12.0-16.0); LYMPHOCYTES # (AUTO) 3.5 10^3/uL (1.5-3.5); LYMPHOCYTES % (AUTO) 40.5 %; MEAN CORPUSCULAR HEMOGLOBIN 33.3 pg (27.0-31.0); MEAN CORPUSCULAR HGB CONC 33.7 g/dL (32.0-36.0); MEAN PLATELET VOLUME 8.8 fL (7.9-10.8); MONOCYTES # (AUTO) 0.8 10^3/uL (0.0-1.0); MONOCYTES % (AUTO) 9.4 %; NEUTROPHILS # (AUTO) 3.7 10^3/uL (1.5-6.6); NEUTROPHILS % (AUTO) 42.1 %; PLT - PLATELET COUNT 211 10^3/uL (130-450); RED BLOOD COUNT 3.84 10^6/uL (4.20-5.40); RED CELL DISTRIBUTION WIDTH 14.3 % (12.0-15.0); WHITE BLOOD COUNT 8.7 x10^3/uL (4.8-10.8)
[2021-09-20 11:45] LABS: ALBUMIN 4.2 g/dL (3.2-5.5); ALBUMIN/GLOBULIN RATIO 1.4 (1.0-2.2); ALKALINE PHOSPHATASE 52 IU/L (42-121); ALT ALANINE AMINOTRANSFERASE 24 IU/L (10-60); AST ASPARTATE AMINOTRANSFERASE 33 IU/L (10-42); BILIRUBIN,TOTAL 0.7 mg/dL (0.2-1.0); BUN - BLOOD UREA NITROGEN 24 mg/dL (6-20); CALCIUM 9.6 mg/dL (8.5-10.3); CARBON DIOXIDE - CO2 22 mmol/L (21-32); CHLORIDE 102 mmol/L (101-111); CREATININE 1.3 mg/dL (0.4-1.0); GFR - MDRD 40 (>89); GLUCOSE 125 mg/dL (70-100); POTASSIUM 4.1 mmol/L (3.5-5.0); SODIUM 138 mmol/L (135-145); TOTAL PROTEIN 7.1 g/dL (6.7-8.2)
[2021-09-20 12:11] LABS: CRP - C-REACTIVE PROTEIN < 1.0 mg/dL (0-1.0)
== END 2021-09-20 11:14 | disposition home or self-care (01) ==
LOC: LAB 11:13
PROVIDERS: ATTEND Internal Medicine Rheumatology
DX: M06.09 Rheumatoid arthritis without rheumatoid factor, multiple sites (principal); Z79.899 Other long term (current) drug therapy
CPT/HCPCS: 36415; 80053; 85025; 85651; 86140

== ENCOUNTER 2021-11-25 14:30 | Outpatient (CLI) | payer MEDICARE, OTHER ==
[2021-11-25 16:15] LABS: BASOPHILS # (AUTO) 0.1 10^3/uL (0.0-0.1); EOSINOPHILS # (AUTO) 0.3 10^3/uL (0.0-0.7); EOSINOPHILS % (AUTO) 4.9 %; HCT - HEMATOCRIT 33.3 % (37.0-47.0); HGB - HEMOGLOBIN 10.9 g/dL (12.0-16.0); LYMPHOCYTES # (AUTO) 2.3 10^3/uL (1.5-3.5); LYMPHOCYTES % (AUTO) 38.9 %; MEAN CORPUSCULAR HEMOGLOBIN 31.7 pg (27.0-31.0); MEAN CORPUSCULAR HGB CONC 32.7 g/dL (32.0-36.0); MEAN CORPUSCULAR VOLUME 96.8 fL (81.0-99.0); MEAN PLATELET VOLUME 9.3 fL (7.9-10.8); MONOCYTES # (AUTO) 0.7 10^3/uL (0.0-1.0); MONOCYTES % (AUTO) 12.2 %; NEUTROPHILS # (AUTO) 2.5 10^3/uL (1.5-6.6); NEUTROPHILS % (AUTO) 42.7 %; PLT - PLATELET COUNT 153 10^3/uL (130-450); RED BLOOD COUNT 3.44 10^6/uL (4.20-5.40); RED CELL DISTRIBUTION WIDTH 14.6 % (12.0-15.0); WHITE BLOOD COUNT 5.9 x10^3/uL (4.8-10.8)
[2021-11-25 16:23] LABS: ALBUMIN 3.6 g/dL (3.2-5.5); BILIRUBIN,TOTAL 0.8 mg/dL (0.2-1.0); CALCIUM 9.7 mg/dL (8.5-10.3); CREATININE 0.8 mg/dL (0.4-1.0); POTASSIUM 3.7 mmol/L (3.5-5.0); TOTAL PROTEIN 7.2 g/dL (6.7-8.2)
[2021-11-25 16:41] LABS: THYROID STIMULATING HORMONE 1.32 uIU/mL (0.34-5.60)
[2021-11-25 16:43] LABS: FREE T3 3.48 pg/mL (2.5-3.9)
[2021-11-25 16:44] LABS: FREE T4 (FREE THYROXINE) 1.37 ng/dL (0.58-1.64)
[2021-11-25 20:55] LABS: ESTIMATED AVERAGE GLUCOSE 108 mg/dL (70-100); HEMOGLOBIN A1c% 5.4 % (4.27-6.07)
== END 2021-11-25 23:59 | disposition home or self-care (01) ==
LOC: LAB.R 14:30
PROVIDERS: ATTEND Hospitalist
DX: I10 Essential (primary) hypertension (principal); E11.40 Type 2 diabetes mellitus with diabetic neuropathy, unspecified; Z95.2 Presence of prosthetic heart valve; Z79.01 Long term (current) use of anticoagulants; M06.9 Rheumatoid arthritis, unspecified
CPT/HCPCS: 80053; 83036; 84439; 84443; 84481; 85025

== ENCOUNTER 2021-12-08 09:50 | Outpatient (CLI) | payer MEDICARE, OTHER ==
[2021-12-08 10:13] LABS: BASOPHILS # (AUTO) 0.1 10^3/uL (0.0-0.1); BASOPHILS % (AUTO) 1.1 %; EOSINOPHILS % (AUTO) 13.8 %; HCT - HEMATOCRIT 34.2 % (37.0-47.0); HGB - HEMOGLOBIN 12.1 g/dL (12.0-16.0); LYMPHOCYTES # (AUTO) 2.8 10^3/uL (1.5-3.5); LYMPHOCYTES % (AUTO) 37.5 %; MEAN CORPUSCULAR HEMOGLOBIN 32.1 pg (27.0-31.0); MEAN CORPUSCULAR HGB CONC 35.4 g/dL (32.0-36.0); MEAN CORPUSCULAR VOLUME 90.7 fL (81.0-99.0); MEAN PLATELET VOLUME 9.7 fL (7.9-10.8); MONOCYTES # (AUTO) 0.6 10^3/uL (0.0-1.0); MONOCYTES % (AUTO) 8.4 %; NEUTROPHILS # (AUTO) 2.9 10^3/uL (1.5-6.6); NEUTROPHILS % (AUTO) 39.1 %; PLT - PLATELET COUNT 111 10^3/uL (130-450); RED BLOOD COUNT 3.77 10^6/uL (4.20-5.40); RED CELL DISTRIBUTION WIDTH 14.6 % (12.0-15.0); WHITE BLOOD COUNT 7.5 x10^3/uL (4.8-10.8)
[2021-12-08 10:20] LABS: ALBUMIN/GLOBULIN RATIO 1.3 (1.0-2.2); BILIRUBIN,TOTAL 0.7 mg/dL (0.2-1.0); CREATININE 1.3 mg/dL (0.4-1.0); POTASSIUM 3.9 mmol/L (3.5-5.0); TOTAL PROTEIN 7.1 g/dL (6.7-8.2)
[2021-12-08 10:25] LABS: PT - PROTHROMBIN TIME 112.3 secs (9.9-12.6)
[2021-12-08 10:38] LABS: PARTIAL THROMBOPLASTIN TIME 75.5 secs (24.9-33.3)
[2021-12-08 10:47] LABS: INR > 10.0 (0.8-1.2)
== END 2021-12-08 09:51 | disposition home or self-care (01) ==
LOC: LAB 09:50
PROVIDERS: ATTEND Nurse Practitioner
DX: J18.9 Pneumonia, unspecified organism (principal); Z95.2 Presence of prosthetic heart valve; Z79.01 Long term (current) use of anticoagulants
CPT/HCPCS: 36415; 80053; 85025; 85610; 85730

== ENCOUNTER 2022-02-21 15:08 | Outpatient (CLI) | payer MEDICARE, OTHER ==
--- NOTE | 2022-02-21 15:06 | SLEEP CARE CONSULTATION ---
Information from patient questionnaire entered by Coral Hopson. I have reviewed and concur with the information entered by Coral Hopson. This document represents the service I personally performed and the decisions made by me, Jeannine Gaytan ARNP. History of Present Illness Service Date and Time: 02/21/2022 1500 Previous diagnosis: Very Severe, Obstructive Sleep Apnea-Hypopnea Syndrome AHI: 61.6 (in 2018) Reason for follow up: annual (LAST SEEN 12/2020) Equipment type: CPAP (RESMED) Equipment obtained from: Other ([employer]; getting supplies) Mask style: Full face Mask brand: Respironics ([employer]marra view) Backup mask available: Yes (old mask) Last cushion change: 1 week Prior sleep studies: Yes Year and Where: 2018 - [facility] , 2004 in [place], [place] Type of Sleep Study: Polysomnography HPI additional information: CARLOS COLEMAN was diagnosed to have very severe, AHI 61.6, obstructive sleep apnea-hypopnea syndrome and return via telehealth visit today for CPAP therapy annual follow-up. Sleep Study - Results Type of Sleep Study: Polysomnography Prior sleep studies: Yes Year and Where: 2018 - [facility] , 2004 in [place], [place] CPAP Compliance Data - Data Reviewed with Patient Average duration of nightly device use: 9 HRS 34 MIN Compliance rate %: 98 (08/24/21-02/19/22; 176/180 days used) Current pressure setting (cmH2O): 8-13 Average residual AHI: 2.3 Central apnea: 0.7 Obstructive apnea: 0.9 Subjective Missed days of use due to: reports: other (power outage) Patient concerns: reports: dry mouth, nose, throat (dry nose, mouth), epistaxis (occasionally; is on warfarin for mechanical heart valve). denies: aerophagia, mask discomfort, air blowing in eyes, mask leak noise, condensation in mask/hose, nasal congestion Observed to snore while using device: No Current pressure setting perceived as: comfortable On therapy, patient: reports: sleeping better, awakening more refreshed, being more awake and alert during the day, more rested overall. denies: drowsiness while driving Initial [place] Sleepiness Scale score: 6 (in 2018) Current [place] Sleepiness Scale score: 5 (02/21/22) Allergies and Home Medications Drug allergies reviewed: Yes (NKDA) Home medication list reviewed: Yes (Tramodol, prn pain, 3 x day) Review of Systems Review of systems same as previous: No (shoulder injury pain) Physical Exam Vital signs obtained and entered by: VIA PHONE Blood Pressure: 141/62 (PER PT) Heart Rate: 58 (PER PT) O2 Saturation: 95 (PER PT) Height: 5 ft 3 in (PER PT) Weight: 228 lb (PER PT) Body Mass Index: 40.4 BMI Classification: Morbidly Obese Impression and Plan 1. Obstructive Sleep Apnea-Hypopnea Syndrome, very severe, with good treatment compliance and good apnea control. On CPAP therapy, the patient has better sleep quality and is more rested overall. Patient has significant improvement of their sleep apnea and are satisfied with current CPAP therapy. Patient has been getting a little bit of a dry mouth and nose at times. She keeps her humidifier on auto and states it works well. She occasionally gets a dry nose and will have a little bit of a bloody nose when her INR is on the higher side. She is on warfarin for a mechanical heart valve. Patient's apnea severity and rationale for treatment to reduce apnea, improve sleep quality and reduce cardiovascular and cerebrovascular events was reviewed. I also reviewed the benefit of consistent device use of CPAP for hypertension. 2. Obesity, unspecified. Currently patients BMI is 40.4. Obesity increases the risk of apnea, CPAP pressure requirements and overall health risks especially cardiovascular and diabetes. Thus patient is advised to lose weight. * Continue auto CPAP pressure at 8-13 cmH2O * Update supplies * Notify me if snoring with mask or feeling that the pressure is too much or too little * Attempt to lose weight * Call this office if any problems using CPAP * Return for follow up in 1 year, or sooner if concerns arise Counseling Topics: Spare mask, Weight loss health impact Visit Type: Telehealth Video Video Type: Carolyn (PREFERS EMAIL) Patient Location: Home Location of Provider: Office Patient agrees and consents to this telehealth visit type: Yes Patient agrees to have their insurance billed: Yes Time Spent with Patient (minutes): 12 Provider Statement: I spent 100% of the Telehealth Video Call with the patient with greater than 50% spent counseling the patient and coordination of care.
[2022-02-21 15:07] VITALS: BP 141/62
== END 2022-02-21 15:09 | disposition home or self-care (01) ==
LOC: SC 15:08
PROVIDERS: ATTEND Nurse Practitioner Family
DX: G47.33 Obstructive sleep apnea (adult) (pediatric) (principal); E66.01 Morbid (severe) obesity due to excess calories; Z68.41 Body mass index [BMI] 40.0-44.9, adult

== ENCOUNTER 2022-03-10 10:16 | Outpatient (CLI) | payer MEDICARE, OTHER ==
[2022-03-10 11:19] LABS: BASOPHILS # (AUTO) 0.1 10^3/uL (0.0-0.1); BASOPHILS % (AUTO) 1.2 %; EOSINOPHILS # (AUTO) 0.5 10^3/uL (0.0-0.7); HCT - HEMATOCRIT 38.8 % (37.0-47.0); HGB - HEMOGLOBIN 13.2 g/dL (12.0-16.0); LYMPHOCYTES % (AUTO) 46.1 %; MEAN CORPUSCULAR HEMOGLOBIN 31.9 pg (27.0-31.0); MEAN CORPUSCULAR VOLUME 93.7 fL (81.0-99.0); MEAN PLATELET VOLUME 9.2 fL (7.9-10.8); MONOCYTES # (AUTO) 0.5 10^3/uL (0.0-1.0); MONOCYTES % (AUTO) 6.9 %; NEUTROPHILS # (AUTO) 2.5 10^3/uL (1.5-6.6); NEUTROPHILS % (AUTO) 38.6 %; PLT - PLATELET COUNT 196 10^3/uL (130-450); RED BLOOD COUNT 4.14 10^6/uL (4.20-5.40); RED CELL DISTRIBUTION WIDTH 13.1 % (12.0-15.0); WHITE BLOOD COUNT 6.5 x10^3/uL (4.8-10.8)
[2022-03-10 11:29] LABS: ALBUMIN 4.3 g/dL (3.2-5.5); ALBUMIN/GLOBULIN RATIO 1.3 (1.0-2.2); ALKALINE PHOSPHATASE 73 IU/L (42-121); ALT ALANINE AMINOTRANSFERASE 15 IU/L (10-60); AST ASPARTATE AMINOTRANSFERASE 22 IU/L (10-42); BILIRUBIN,TOTAL 0.8 mg/dL (0.2-1.0); BUN - BLOOD UREA NITROGEN 17 mg/dL (6-20); CALCIUM 9.4 mg/dL (8.5-10.3); CARBON DIOXIDE - CO2 25 mmol/L (21-32); CHLORIDE 100 mmol/L (101-111); GFR - MDRD 54 (>89); GLUCOSE 131 mg/dL (70-100); POTASSIUM 3.5 mmol/L (3.5-5.0); SODIUM 137 mmol/L (135-145); TOTAL PROTEIN 7.5 g/dL (6.7-8.2)
[2022-03-10 11:30] LABS: INR 3.4 (0.8-1.2); PT - PROTHROMBIN TIME 35.5 secs (9.9-12.6)
[2022-03-10 11:38] LABS: CRP - C-REACTIVE PROTEIN < 1.0 mg/dL (0-1.0)
[2022-03-10 11:47] LABS: CHOL/HDL RATIO 2.5 (<4.4); CHOLESTEROL 183 mg/dL; HDL CHOLESTEROL 72 mg/dL; LDL CHOLESTEROL,CALCULATED 86 mg/dL; LDL/HDL RATIO 1.2 (<4.4); TRIGLYCERIDES 127 mg/dL; VLDL CHOLESTEROL 25 mg/dL
== END 2022-03-10 10:17 | disposition home or self-care (01) ==
LOC: LAB 10:16
PROVIDERS: ATTEND Internal Medicine Cardiovascular Disease
DX: I10 Essential (primary) hypertension (principal); E78.5 Hyperlipidemia, unspecified; Z79.01 Long term (current) use of anticoagulants; M06.09 Rheumatoid arthritis without rheumatoid factor, multiple sites; Z79.899 Other long term (current) drug therapy; Z95.2 Presence of prosthetic heart valve
CPT/HCPCS: 36415; 80053; 80061; 83721; 85025; 85610; 85651; 86140

== ENCOUNTER 2022-06-07 11:05 | Outpatient (CLI) | payer MEDICARE, OTHER ==
[2022-06-07 11:41] LABS: BASOPHILS # (AUTO) 0.1 10^3/uL (0.0-0.1); BASOPHILS % (AUTO) 0.9 %; EOSINOPHILS # (AUTO) 0.3 10^3/uL (0.0-0.7); EOSINOPHILS % (AUTO) 5.1 %; HCT - HEMATOCRIT 38.2 % (37.0-47.0); HGB - HEMOGLOBIN 12.9 g/dL (12.0-16.0); LYMPHOCYTES # (AUTO) 2.6 10^3/uL (1.5-3.5); LYMPHOCYTES % (AUTO) 38.5 %; MEAN CORPUSCULAR HEMOGLOBIN 32.3 pg (27.0-31.0); MEAN CORPUSCULAR HGB CONC 33.8 g/dL (32.0-36.0); MEAN CORPUSCULAR VOLUME 95.7 fL (81.0-99.0); MONOCYTES # (AUTO) 0.5 10^3/uL (0.0-1.0); MONOCYTES % (AUTO) 7.7 %; NEUTROPHILS # (AUTO) 3.2 10^3/uL (1.5-6.6); NEUTROPHILS % (AUTO) 47.6 %; PLT - PLATELET COUNT 172 10^3/uL (130-450); RED BLOOD COUNT 3.99 10^6/uL (4.20-5.40); RED CELL DISTRIBUTION WIDTH 13.8 % (12.0-15.0); WHITE BLOOD COUNT 6.6 x10^3/uL (4.8-10.8)
[2022-06-07 11:59] LABS: ALBUMIN 4.2 g/dL (3.2-5.5); ALBUMIN/GLOBULIN RATIO 1.5 (1.0-2.2); ALKALINE PHOSPHATASE 62 IU/L (42-121); ALT ALANINE AMINOTRANSFERASE 28 IU/L (10-60); AST ASPARTATE AMINOTRANSFERASE 36 IU/L (10-42); BILIRUBIN,TOTAL 0.8 mg/dL (0.2-1.0); BUN - BLOOD UREA NITROGEN 17 mg/dL (6-20); CALCIUM 9.5 mg/dL (8.5-10.3); CARBON DIOXIDE - CO2 24 mmol/L (21-32); CHLORIDE 103 mmol/L (101-111); GFR - MDRD 54 (>89); GLUCOSE 130 mg/dL (70-100); POTASSIUM 3.8 mmol/L (3.5-5.0); SODIUM 139 mmol/L (135-145)
[2022-06-07 12:03] LABS: CRP - C-REACTIVE PROTEIN < 1.0 mg/dL (0-1.0)
== END 2022-06-07 11:06 | disposition home or self-care (01) ==
LOC: LAB 11:05
PROVIDERS: ATTEND Internal Medicine Rheumatology
DX: M06.09 Rheumatoid arthritis without rheumatoid factor, multiple sites (principal); Z79.899 Other long term (current) drug therapy
CPT/HCPCS: 36415; 80053; 81599; 85025; 85651; 86140; 86317; 86480; 86704; 86803; 87340

== ENCOUNTER 2022-07-19 09:54 | Outpatient (CLI) | payer MEDICARE, OTHER ==
--- NOTE | 2022-07-19 13:33 | Ultrasound Report ---
PROCEDURE: Head or Neck Soft Tissue INDICATIONS: THYROID NODULE TECHNIQUE: Real-time scanning was performed of the thyroid gland, with image documentation. COMPARISON: None FINDINGS: Right: Thyroid lobe measures 5.6 x 3.3 x 2 cm, and is homogeneous in echotexture. Left: Thyroid lobe measures 4.7 x 3.1 x 1.9 cm, and is homogenous in echotexture. Isthmus: 7 mm thick. Nodule 1: Right inferior 3.9 x 3.2 x 2.1 cm. Predominantly solid and hypoechoic. Margins are lobulated. TI RADS 4. Nodule 2: Right mid region 1 x 1 x 0.9 cm. It is solid and hypoechoic. Smooth margins. TI RADS 4. Nodule 3: Left superior region 0.5 x 0.7 cm. It is solid and hypoechoic with microcalcifications. Margins are ill-defined. TI RADS 4 . Nodule 4: Left mid region 1.8 x 1.5 x 1.5 cm. It is solid with hypoechoic components. Margins are smooth. TI RADS 4. Nodule 5: Isthmus nodule 0.9 x 0.6 x 0.7 cm. It is solid and hypoechoic. TI RADS 4. IMPRESSION: Thyroid nodules as above. Recommendations are outlined below. Recommend sampling for nod ule 1 and nodule 4, which are the largest nodules on the right and left respectively. ACR TI-RADS definitions and recommendations: TI-RADS 1 (benign): 0 points. FNA not needed. TI-RADS 2 (not suspicious): 2 points. FNA not needed. TI-RADS 3 (mildly suspicious): 3 points. "FNA if 2.5 cm or larger, follow up if 1.5 cm or larger (at 1, 3, and 5 years). TI-RADS 4 (moderately suspicious): 4-6 points. "FNA if 1.5 cm or larger, follow up if 1 cm or larger (at 1, 2, 3, and 5 years). TI-RADS 5 (highly suspicious): 7 points or more. "FNA if 1 cm or larger, follow up if 0.5 cm or larger (every year for 5 years). Reviewed by: Hermann Fuller MD on 07/19/2022 1:32 PM PDT Approved by: Hermann Fuller MD on 07/19/2022 1:32 PM PDT Station ID: [id number]
== END 2022-07-19 09:55 | disposition home or self-care (01) ==
LOC: DI 09:54
PROVIDERS: ATTEND Internal Medicine
DX: E04.2 Nontoxic multinodular goiter (principal)

== ENCOUNTER 2022-09-22 10:40 | Outpatient (CLI) | payer MEDICARE, OTHER ==
[2022-09-22 10:56] LABS: BASOPHILS # (AUTO) 0.1 10^3/uL (0.0-0.1); BASOPHILS % (AUTO) 1.8 %; EOSINOPHILS # (AUTO) 0.8 10^3/uL (0.0-0.7); EOSINOPHILS % (AUTO) 11.3 %; HCT - HEMATOCRIT 37.6 % (37.0-47.0); HGB - HEMOGLOBIN 12.8 g/dL (12.0-16.0); LYMPHOCYTES # (AUTO) 3.1 10^3/uL (1.5-3.5); MEAN CORPUSCULAR HEMOGLOBIN 32.9 pg (27.0-31.0); MEAN CORPUSCULAR VOLUME 96.7 fL (81.0-99.0); MONOCYTES # (AUTO) 0.3 10^3/uL (0.0-1.0); MONOCYTES % (AUTO) 3.5 %; NEUTROPHILS # (AUTO) 2.8 10^3/uL (1.5-6.6); NEUTROPHILS % (AUTO) 39.3 %; PLT - PLATELET COUNT 180 10^3/uL (130-450); RED BLOOD COUNT 3.89 10^6/uL (4.20-5.40); RED CELL DISTRIBUTION WIDTH 13.5 % (12.0-15.0); WHITE BLOOD COUNT 7.1 x10^3/uL (4.8-10.8)
[2022-09-22 11:13] LABS: ALBUMIN/GLOBULIN RATIO 1.3 (1.0-2.2); ALKALINE PHOSPHATASE 56 IU/L (42-121); ALT ALANINE AMINOTRANSFERASE 41 IU/L (10-60); AST ASPARTATE AMINOTRANSFERASE 52 IU/L (10-42); BUN - BLOOD UREA NITROGEN 19 mg/dL (6-20); CALCIUM 9.3 mg/dL (8.5-10.3); CARBON DIOXIDE - CO2 24 mmol/L (21-32); CHLORIDE 105 mmol/L (101-111); GFR - MDRD 54 (>89); GLUCOSE 128 mg/dL (70-100); POTASSIUM 3.9 mmol/L (3.5-5.0); SODIUM 139 mmol/L (135-145); TOTAL PROTEIN 7.1 g/dL (6.7-8.2)
[2022-09-22 11:19] LABS: CRP - C-REACTIVE PROTEIN < 1.0 mg/dL (0-1.0)
[2022-09-22 11:26] LABS: THYROID STIMULATING HORMONE 2.04 uIU/mL (0.34-5.60)
[2022-09-22 11:27] LABS: FREE T3 2.77 pg/mL (2.5-3.9)
[2022-09-22 11:28] LABS: FREE T4 (FREE THYROXINE) 0.95 ng/dL (0.58-1.64)
[2022-09-22 12:48] LABS: ESTIMATED AVERAGE GLUCOSE 117 mg/dL (70-100); HEMOGLOBIN A1c% 5.7 % (4.27-6.07)
== END 2022-09-22 10:41 | disposition home or self-care (01) ==
LOC: LAB 10:40
PROVIDERS: ATTEND Internal Medicine Rheumatology
DX: M06.09 Rheumatoid arthritis without rheumatoid factor, multiple sites (principal); E04.1 Nontoxic single thyroid nodule; E11.9 Type 2 diabetes mellitus without complications; Z79.899 Other long term (current) drug therapy; Z95.2 Presence of prosthetic heart valve; Z79.01 Long term (current) use of anticoagulants
CPT/HCPCS: 36415; 80053; 83036; 84439; 84443; 84481; 85025; 85610; 85651; 86140

== ENCOUNTER 2022-10-30 13:57 | Outpatient (CLI) | payer MEDICARE, OTHER ==
--- NOTE | 2022-11-01 10:35 | Mammography Report ---
BILATERAL DIGITAL SCREENING MAMMOGRAM 3D/2D: 10/30/2022 CLINICAL: Routine screening. Comparison is made to exams dated: 10/05/2021 mammogram, 07/14/2020 mammogram, 01/30/2017 mammogram, mammogram, and 02/06/2014 mammogram - [facility]. There are scattered areas of fibroglandular density in both breasts (category b / 25%-50% glandular t issue). There are benign calcifications in both breasts. There also are benign vascular calcifications in ben th breasts. Additionally, there is a biopsy clip in the right breast. Additionally, there also are benign post operative findings in the left breast. No significant masses, calcifications, or other findings are seen in either breast. There has been no significant interval change. IMPRESSION: BENIGN There is no mammographic evidence of malignancy. A 1 year screening mammogram is recommended. Based on the Tyrer Cuzick model (a risk assessment model) the patients lifetime risk is 6.5% and her 10 year risk is 6.5%. According to the ACR, ACS, and NCCN guidelines, an annual breast MRI exam nely g with mammogram is recommended if the patients lifetime risk is 20% or greater. This exam was interpreted at Station ID: [id number]. NOTE: For mammograms, a report in lay terms will be sent to the patient. Approximately 15% of breast malignancies will not be visualized mammographically. In the management of a palpable breast mass, a negative mammogram must not discourage biopsy of a clinically suspicious lesion. Electronically Signed By: Nils walls/sea:10/31/2022 12:45:50 letter sent: No_Letter ACR BI-RADS Category 2: Benign Finding(s) 3342F PARENCHYMAL PATTERN: (A) - The breast(s) demonstrate(s) scattered fibroglandular densities. BI-RADS CATEGORY: (2) - 2 Mammogram [id number] 1 year screening LATERALITY: (B)
== END 2022-10-30 13:58 | disposition home or self-care (01) ==
LOC: DI 13:57
PROVIDERS: ATTEND Internal Medicine
DX: Z12.31 Encounter for screening mammogram for malignant neoplasm of breast (principal)

== ENCOUNTER 2022-11-10 14:06 | Outpatient (CLI) | payer MEDICARE, OTHER ==
--- NOTE | 2022-11-10 14:53 | DEXA Report ---
PROCEDURE: Dexa Spine and/or Hip INDICATIONS: POST MENOPAUSAL TECHNIQUE: Dual energy x-ray absorptiometry (DXA) was performed on a Crackle System. Regions measur ed are the AP Spine, femoral neck, and if needed forearm. COMPARISON: 03/29/2017 FINDINGS: Lumbar Spine: Bone Mineral Density 1.040 g/cm/cm,T score -1.2. Since the most recent prior study, there has been a statistically significant increase in bone mineral density by 5.5 percent. Left Femoral Neck: Bone Mineral Density 0.887 g/cm/cm, T score -1.1. Left Hip: Bone Mineral Density 0.853 g/cm/cm,T score -1.2. Since the most recent prior study, there has been a statistically significant decrease in bone mineral density by -10.1 percent. (T score greater or equal to -1.0: NORMAL) (T score from -1.1 to -2.4: OSTEOPENIA) (T score less than or equal to -2.5 to: OSTEOPOROSIS) Impression: By WHO criteria, this patient has low bone density (osteopenia). Interval statistical increase in bone minteral density of the lumbar spine. Interval statistical decr ease in bone minteral density of the hip. Patients with diagnosis of osteoporosis or osteopenia should have regular bone mineral density assess ment. For those eligible for Medicare, routine testing is allowed once every 2 years. Testing frequ ency can be increased for patients who have rapidly progressing disease or for those who are receivin g medical therapy to restore bone mass. Reviewed by: Maldonado Thomas MD on 11/10/2022 2:52 PM PDT Approved by: Maldonado Thomas MD on 11/10/2022 2:52 PM PDT Station ID: [id number]
== END 2022-11-10 14:07 | disposition home or self-care (01) ==
LOC: DI 14:06
PROVIDERS: ATTEND Internal Medicine
DX: M85.89 Other specified disorders of bone density and structure, multiple sites (principal); Z78.0 Asymptomatic menopausal state

== ENCOUNTER 2023-04-02 11:35 | Outpatient (CLI) | payer MEDICARE, OTHER ==
[2023-04-02 12:00] LABS: BASOPHILS # (AUTO) 0.1 10^3/uL (0.0-0.1); BASOPHILS % (AUTO) 2.1 %; EOSINOPHILS # (AUTO) 0.3 10^3/uL (0.0-0.7); HCT - HEMATOCRIT 39.2 % (37.0-47.0); HGB - HEMOGLOBIN 13.3 g/dL (12.0-16.0); LYMPHOCYTES # (AUTO) 2.7 10^3/uL (1.5-3.5); LYMPHOCYTES % (AUTO) 46.5 %; MEAN CORPUSCULAR HEMOGLOBIN 32.6 pg (27.0-31.0); MEAN CORPUSCULAR HGB CONC 33.9 g/dL (32.0-36.0); MEAN CORPUSCULAR VOLUME 96.1 fL (81.0-99.0); MEAN PLATELET VOLUME 8.7 fL (7.9-10.8); MONOCYTES # (AUTO) 0.3 10^3/uL (0.0-1.0); MONOCYTES % (AUTO) 5.3 %; NEUTROPHILS # (AUTO) 2.4 10^3/uL (1.5-6.6); NEUTROPHILS % (AUTO) 40.9 %; PLT - PLATELET COUNT 183 10^3/uL (130-450); RED BLOOD COUNT 4.08 10^6/uL (4.20-5.40); WHITE BLOOD COUNT 5.8 x10^3/uL (4.8-10.8)
[2023-04-02 12:29] LABS: THYROID STIMULATING HORMONE 1.7 uIU/mL (0.34-5.60)
[2023-04-02 12:30] LABS: ALBUMIN 4.3 g/dL (3.2-5.5); ALBUMIN/GLOBULIN RATIO 1.7 (1.0-2.2); ALKALINE PHOSPHATASE 58 IU/L (42-121); ALT ALANINE AMINOTRANSFERASE 35 IU/L (10-60); AST ASPARTATE AMINOTRANSFERASE 47 IU/L (10-42); BILIRUBIN,TOTAL 0.8 mg/dL (0.2-1.0); BUN - BLOOD UREA NITROGEN 17 mg/dL (6-20); CALCIUM 9.6 mg/dL (8.5-10.3); CARBON DIOXIDE - CO2 23 mmol/L (21-32); CHLORIDE 99 mmol/L (101-111); CREATININE 1.4 mg/dL (0.6-1.3); CRP - C-REACTIVE PROTEIN < 0.5 mg/dL (<0.5); GFR - MDRD 37 (>89); GLUCOSE 110 mg/dL (74-104); POTASSIUM 3.7 mmol/L (3.5-4.5); SODIUM 134 mmol/L (135-145); TOTAL PROTEIN 6.9 g/dL (6.4-8.9)
[2023-04-02 12:41] LABS: ESTIMATED AVERAGE GLUCOSE 103 mg/dL (70-100); HEMOGLOBIN A1c% 5.2 % (4.27-6.07)
== END 2023-04-02 11:36 | disposition home or self-care (01) ==
LOC: LAB 11:35
PROVIDERS: ATTEND Internal Medicine Rheumatology
DX: M06.09 Rheumatoid arthritis without rheumatoid factor, multiple sites (principal); Z79.899 Other long term (current) drug therapy; E11.9 Type 2 diabetes mellitus without complications; E04.1 Nontoxic single thyroid nodule
CPT/HCPCS: 36415; 80053; 83036; 84443; 85025; 85651; 86140

== ENCOUNTER 2023-04-25 14:30 | Outpatient (CLI) | payer MEDICARE, OTHER ==
--- NOTE | 2023-04-25 14:26 | SLEEP CARE CONSULTATION ---
Information from patient questionnaire entered by Coral Hopson. I have reviewed and concur with the information entered by Coral Hopson. This document represents the service I personally performed and the decisions made by me, Jeannine Gaytan ARNP. History of Present Illness Service Date and Time: 04/25/2023 1400 Previous diagnosis: Very Severe, Obstructive Sleep Apnea-Hypopnea Syndrome AHI: 61.6 (in 2018) Reason for follow up: annual (LAST SEEN 01/2022) Equipment type: CPAP (RESMED Airsense 10, s/u 08/2018) Equipment obtained from: Other ([employer]; getting supplies) Mask style: Full face Mask brand: Respironics ([employer]) Backup mask available: Yes (old mask) Last cushion change: 1 month Prior sleep studies: Yes Year and Where: 2018 - [facility] , 2004 in [place], [place] Type of Sleep Study: Polysomnography HPI additional information: CARLOS COLEMAN was diagnosed to have very severe, AHI 61.6, obstructive sleep apnea-hypopnea syndrome and returns via telephone visit today for CPAP therapy annual follow-up. Sleep Study - Results Type of Sleep Study: Polysomnography Prior sleep studies: Yes Year and Where: 2018 - [facility] , 2004 in [place], [place] CPAP Compliance Data - Data Reviewed with Patient Average duration of nightly device use: 8 HRS 39 MINS Compliance rate %: 99 (04/23/22-04/22/23; 365/365 day used) Current pressure setting (cmH2O): 8-13 Average residual AHI: 2.0 Central apnea: 0.8 Obstructive apnea: 0.7 Average large leak: 1 L/min Subjective Patient concerns: reports: dry mouth, nose, throat (dry mouth, no sure if cpap related, meds that dry mouth too). denies: aerophagia, mask discomfort, air blowing in eyes, mask leak noise, condensation in mask/hose, nasal congestion, epistaxis Observed to snore while using device: No Current pressure setting perceived as: comfortable On therapy, patient: reports: awakening more refreshed, being more awake and alert during the day, more rested overall. denies: drowsiness while driving Initial [place] Sleepiness Scale score: 6 (in 2018) Current [place] Sleepiness Scale score: 8 (04/25/23) Allergies and Home Medications Known drug allergies: No Drug allergies reviewed: Yes Home medication list reviewed: Yes (as listed) Allergy and home medication list: Allergies No Known Drug Allergies Allergy (Verified 04/23/23 09:47) Home Medications Medication Instructions Recorded Confirmed Last Taken Type Amlodipine Besylate 5 mg PO DAILY 02/15/13 04/25/23 11/09/21 History Aspirin [Aspir 81] 81 mg PO DAILY 02/15/13 04/25/23 11/09/21 History Cetirizine [ZyrTEC] 10 mg PO DAILY 02/15/13 04/25/23 11/09/21 History Losartan [Cozaar] 50 mg PO BID 02/15/13 04/25/23 11/09/21 History Metoprolol Tartrate [Lopressor] 75 mg PO BID 02/15/13 04/25/23 11/09/21 History Multivitamin [Multi-Vitamin Daily] 1 each PO DAILY 02/15/13 04/25/23 11/09/21 History Omeprazole [Prilosec] 20 mg PO DAILY 02/15/13 04/25/23 11/09/21 History Rosuvastatin Calcium [Crestor] 5 mg PO Q48H 02/15/13 04/25/23 11/09/21 History Gabapentin [Neurontin] 100 mg PO DAILY 02/07/20 04/25/23 11/09/21 History Gabapentin [Neurontin] 400 mg PO QPM 02/07/20 04/25/23 11/08/21 History Loperamide [Imodium] 2 mg PO ONCE PRN 02/07/20 04/25/23 Unknown History SUMAtriptan [Imitrex] 25 mg PO Q2H PRN MDD 2 02/07/20 04/25/23 05/19/21 History Warfarin [Coumadin] 5 mg PO DAILY 02/07/20 04/25/23 11/09/21 History metFORMIN [Glucophage] 500 mg PO BIDWM 02/07/20 04/25/23 11/09/21 History Nitroglycerin [Nitrostat] 0.4 mg SL Q5MIN PRN #1 bottle 07/29/20 04/25/23 Unknown Rx Ezetimibe [Zetia] 10 mg PO QD 06/16/21 04/25/23 11/09/21 History Folic Acid 3 mg PO DAILY 06/16/21 04/25/23 11/09/21 History oxyCODONE [Roxicodone] 5 mg PO Q4-6H 4 Days #20 tablet 11/21/21 04/25/23 Unknown Rx traMADol [Ultram] See Rx Instructions .ROUTE .COMPLEX 02/21/22 04/25/23 Unknown History Abatacept [Orencia] See Rx Instructions .ROUTE .COMPLEX 04/25/23 04/25/23 Un known History Metoclopramide [Reglan] See Rx Instructions .ROUTE .COMPLEX 04/25/23 04/25/23 Unknown History Review of Systems Review of systems same as previous: Yes (NO CHANGE) Physical Exam Vital signs obtained and entered by: CORAL Espinal MA Height: 5 ft 2 in (PER PT) Weight: 225 lb (PER PT) Weight change since last visit: 3 lb loss Body Mass Index: 41.1 BMI Classification: Morbidly Obese Impression and Plan 1. Obstructive Sleep Apnea-Hypopnea Syndrome, very severe, with good treatment compliance and good apnea control. On CPAP therapy, the patient has better sleep quality and is more rested overall. Patient has significant improvement of their sleep apnea and is satisfied with current CPAP therapy. Patient denies problems with nasal congestion, epistaxis, skin irritation or aerophagia. I will update her supply prescription and see her next year. Patient's apnea severity and rationale for treatment to reduce apnea, improve sleep quality and reduce cardiovascular and cerebrovascular events was reviewed. I also reviewed the benefit of consistent device use of CPAP for hypertension. 2. Obesity, unspecified. Currently patients BMI is 41.1. She has lost weight. Obesity increases the risk of apnea, CPAP pressure requirements and overall health risks especially cardiovascular and diabetes. Thus patient is advised to continue to try to lose weight. * Continue auto CPAP pressure at 8-13 cmH2O * Update supply prescription * Notify me if snoring with mask or feeling that the pressure is too much or too little * Attempt to lose weight * Call this office if any problems using CPAP * Return for follow up in 12 months, or sooner if concerns arise Counseling Topics: Spare mask, Weight loss health impact Prescriptions: Device supplies Follow up with Sleep Care in: 1 year Visit Type: Telehealth Phone Video Type: Doximity Patient Location: Home Location of Provider: Office Patient agrees and consents to this telehealth visit type: Yes Patient agrees to have their insurance billed: Yes Time Spent with Patient (minutes): 15 Provider Statement: I spent 100% of the Telehealth Phone Call with the patient with greater than 50% spent counseling the patient and coordination of care.
== END 2023-04-25 14:31 | disposition home or self-care (01) ==
LOC: SC 14:30
PROVIDERS: ATTEND Nurse Practitioner Family
DX: G47.33 Obstructive sleep apnea (adult) (pediatric) (principal); E66.01 Morbid (severe) obesity due to excess calories; Z68.41 Body mass index [BMI] 40.0-44.9, adult
CPT/HCPCS: 99442

== ENCOUNTER 2023-05-03 18:50 | Emergency (ER) | payer MEDICARE, OTHER ==
--- NOTE | 2023-05-03 19:17 | ED Physician Documentation ---
PD HPI [facility]OCAL [facility]URO - Stated complaint Stated Complaint: TROUBLE TALKING/WALKING - Chief complaint Chief Complaint: General - History obtained from History obtained from: Patient - Additional information Additional information: 77-year-old woman with type 2 diabetes on metformin only, hypertension, and remote mechanical aortic valve replacement on warfarin. Since she says she is not been able to eat or drink due to early satiety and poor appetite. Shy is only been having sips of kailey malcolm and occasional soup and water since then. She is lost 20 pounds and just feels terrible. She saw her primary care physician who has referred her to GI but there has been no diagnostic testing as of yet. She states that it is since all this started her INR's have been running high and she has been decreasing her warfarin dosing. She does home INR's and that she last checked about 2 weeks ago at which point it was in the fours. Since then she has continued to decrease her warfarin dose and currently is taking 2.5 mg 5 times a week and 1.25 mg 2 times a week. Starting this evening about 30 minutes ago she developed some word finding difficulty. What she noticed first was that her asked her what melatonin was, and she knows she knows well what melatonin was but could not describe it. Earlier this evening she did have an ophthalmic migraine which is not uncommon for her. That is resolved and there was no associated headache. PD PAST MEDICAL HISTORY - Past Medical History Cardiovascular: Hypertension, High cholesterol, Peripheral Vascular Disease, Valve disorder Respiratory: Sleep apnea, CPAP use Neuro: Migraines Endocrine/Autoimmune: Type 2 diabetes GI: GERD AIRPORT BAGGAGE SCREENER: None : None HEENT: None Musculoskeletal: Rheumatoid arthritis Derm: None - Past Surgical History Past Surgical History: Yes General: Colonoscopy Ortho: Knee replacement /AIRPORT BAGGAGE SCREENER: Hysterectomy Cardiovascular: Valve replacement, Cardiac catheterization HEENT: Cataracts - Present Medications Home Medications: Ambulatory Orders Medication Instructions Recorded Confirmed Amlodipine Besylate 5 mg PO DAILY 02/15/13 04/25/23 Aspirin [Aspir 81] 81 mg PO DAILY 02/15/13 04/25/23 Cetirizine [ZyrTEC] 10 mg PO DAILY 02/15/13 04/25/23 Losartan [Cozaar] 50 mg PO BID 02/15/13 04/25/23 Metoprolol Tartrate [Lopressor] 75 mg PO BID 02/15/13 04/25/23 Multivitamin [Multi-Vitamin Daily] 1 each PO DAILY 02/15/13 04/25/23 Omeprazole [Prilosec] 20 mg PO DAILY 02/15/13 04/25/23 Rosuvastatin Calcium [Crestor] 5 mg PO Q48H 02/15/13 04/25/23 Gabapentin [Neurontin] 100 mg PO DAILY 02/07/20 04/25/23 Gabapentin [Neurontin] 400 mg PO QPM 02/07/20 04/25/23 Loperamide [Imodium] 2 mg PO ONCE PRN 02/07/20 04/25/23 SUMAtriptan [Imitrex] 25 mg PO Q2H PRN MDD 2 02/07/20 04/25/23 Warfarin [Coumadin] 5 mg PO DAILY 02/07/20 04/25/23 metFORMIN [Glucophage] 500 mg PO BIDWM 02/07/20 04/25/23 Nitroglycerin [Nitrostat] 0.4 mg SL Q5MIN PRN #1 bottle 07/29/20 04/25/23 Ezetimibe [Zetia] 10 mg PO QD 06/16/21 04/25/23 Folic Acid 3 mg PO DAILY 06/16/21 04/25/23 oxyCODONE [Roxicodone] 5 mg PO Q4-6H 4 Days #20 tablet 11/21/21 04/25/23 traMADol [Ultram] See Rx Instructions .ROUTE .COMPLEX 02/21/22 04/25/23 Abatacept [Orencia] See Rx Instructions .ROUTE .COMPLEX 04/25/23 04/25/23 Metoclopramide [Reglan] See Rx Instructions .ROUTE .COMPLEX 04/25/23 04/25/23 Thiamine [Vitamin B-1] 100 mg PO DAILY #60 tablet 05/03/23 - Allergies Allergies/Adverse Reactions: Allergies Allergy/AdvReac Type Severity Reaction Status Date / Time No Known Drug Allergies Allergy Verified 05/03/23 19:06 - Social History Does the pt smoke?: No Smoking Status: Never smoker Does the pt drink ETOH?: No Does the pt have substance abuse?: No - Immunizations Immunizations are current?: Yes - POLST Patient has POLST: No PD ED PE NORMAL - Vitals Vital signs reviewed: Yes - General General: Alert and oriented X 3, No acute distress, Other (She is alert and oriented x 3 but has slightly delayed responses.) - HEENT HEENT: PERRL, EOMI (She has difficulty following my finger especially to the left. There is potentially a slight abducens palsy on the right but she denies diplopia on leftward gaze.) - Neck Neck: Supple, no meningeal sign, No bony TTP - Cardiac Cardiac: RRR, No murmur (With loud closing click but no murmur) - Respiratory Respiratory: No respiratory distress, Clear bilaterally - Abdomen Abdomen: Non tender - Derm Derm: Normal color, Warm and dry - Extremities Extremities: No edema, No calf tenderness / cord - Neuro Neuro: Alert and oriented X 3, No motor deficit, No sensory deficit Eye Opening: Spontaneous Motor: Obeys Commands Verbal: Oriented GCS Score: 15 NIHSS - Time Time: 19:10 - Level of Consciousness Level of consciousness: (0) Alert, Keenly responsive LOC Questions: (0) Answers both Q's correct LOC Commands: (0) Performs both correctly - Gaze Best Gaze: (0) Normal - Visual Visual: (0) No loss - Facial Palsy Facial Palsy: (0) Normal, symmetrical movement - Motor Arms (both separate) Motor Arm (right): (0) No drift Motor Arm (left): (0) No drift - Motor Legs (both separate) Motor Leg (right): (0) No drift Motor Leg (left): (0) No drift - Limb Ataxia Limb Ataxia: (0) Absent - Sensory Sensory: (0) Normal - Best Language Best Language: (0) No aphasia - Dysarthria Dysarthria: (0) Normal - Extinction and Inattention (formally neg Extinction and inattention: (0) No abnormality - Total Score/Results Total Score/Result: 0 Results - Vitals Vitals: Vital Signs - 24 hr 05/03/23 18:51 Temperature 36.0 C L Heart Rate 68 Respiratory 18 Rate Blood Pressure 191/65 H O2 Saturation 97 Oxygen O2 Source [] Nasal cannula O2 Source [] Nasal cannula O2 Source Room air - EKG (time done) 1920 EKG releavant findings:: EKG personally interpreted by author of this note. Relevant findings are: Rate: Rate (enter#) (69) Rhythm: NSR (w pvcsThis), LAE [place]: Normal Intervals: Normal TN QRS: Normal Ischemia: Non specific changes - Labs Labs: Laboratory Tests 05/03/23 05/03/23 05/03/23 19:11 19:28 19:28 WBC 5.9 RBC 4.27 Hgb 13.8 Hct 39.9 MCV 93.4 MCH 32.3 H MCHC 34.6 RDW 13.5 Plt Count 178 MPV 8.8 Neut # (Auto) 2.6 Lymph # (Auto) 2.5 Dundy # (Auto) 0.6 Eos # (Auto) 0.2 Baso # (Auto) 0.1 Absolute Nucleated RBC 0.00 Nucleated RBC % 0.0 PT 48.9 H INR 5.0 H* Sodium Potassium Chloride Carbon Dioxide Anion Gap BUN Creatinine Estimated GFR (MDRD) Glucose POC Whole Bld Glucose 117 H Calcium Total Bilirubin AST ALT Alkaline Phosphatase Total Protein Albumin Globulin Albumin/Globulin Ratio Lipase 05/03/23 19:28 WBC RBC Hgb Hct MCV MCH MCHC RDW Plt Count MPV Neut # (Auto) Lymph # (Auto) Dundy # (Auto) Eos # (Auto) Baso # (Auto) Absolute Nucleated RBC Nucleated RBC % PT INR Sodium 137 Potassium 3.3 L Chloride 102 Carbon Dioxide 22 Anion Gap 13.0 BUN 8 Creatinine 0.9 Estimated GFR (MDRD) 61 L Glucose 111 H POC Whole Bld Glucose Calcium 9.2 Total Bilirubin 1.0 AST 35 ALT 16 Alkaline Phosphatase 56 Total Protein 6.4 Albumin 3.9 Globulin 2.5 Albumin/Globulin Ratio 1.6 Lipase 12 PD Medical Decision Making - ED course ED course: 77-year-old woman presents with mild word finding difficulties in the setting of more of a subacute poor appetite with vomiting. Her physician wondered if she might have gastroparesis and is already started on Reglan at a dose of 5 mg twice a day which has not been helpful. The worry would be for strokelike s ymptom versus Warnicke's although her symptoms are atypical for that. Also given the subacute findings and worried about some sort of obstructive lesion in the GI tract and she has not had any imaging yet. Subsequently in the emergency department CT of the head and angiography studies were negative, CT of the chest demonstrated left upper lobe opacities could be mucus impaction or chronic fungal infection and repeat CT was encouraged in 3 months. She did have an enlarged heterogenous thyroid but I note that for thyroid function testing was ordered within the month and was unremarkable. CT of the abdomen pelvis demonstrated some gallbladder sludge and diverticulosis but nothing to suggest support her symptoms. On reexamination at 8:45 PM and all her symptoms have resolved. Her word fi nding difficulty is completely gone and there is no delay in execution with talking. This makes Warnicke's much less likely although I think thiamine supplementation is still a good idea, and advise she increase her dose of Reglan to 10 mg 4 times a day and encouraged her to call the office to see if anything can be done to expedite further workup and treatment. We also discussed her INR which was 5 likely due to poor appetite and weight loss. Departure - Departure Disposition: Home, Self Care Clinical Impression: Word finding difficulty, Supratherapeutic INR, Abnormal chest CT, Sludge in gallbladder, Diabetes Vomiting Qualifiers: Vomiting type: unspecified Nausea presence: with nausea Qualified Code(s): R11.2 - Nausea with vomiting, unspecified Condition: Good Record reviewed to determine appropriate education?: Yes Prescriptions: Thiamine [Vitamin B-1] 100 mg PO DAILY #60 tablet Comments: You were seen today for some worry of some strokelike symptoms with word finding difficulties that resolved. The CAT scan of your head and the angiography studies that look at the arteries in your head and neck were normal. CAT scan of your chest showed enlarged thyroid, but you did have that function checked within the last month by your PCP, and there was also an abnormality in the left upper lobe and the radiologist recommended a repeat chest CT in 3 months to further evaluate that. You have sludge in your gallbladder and diverticulosis but none of those would be a cause of your current symptomatology. Given your INR 5 today I recommend you hold your warfarin for 2 days and then probably restart at the dose of 1-1/4 mg daily. I sent a prescription for thiamine to the [facility] in [place] and you should continue your folate supplementation. You should increase your Reglan to 10 mg 4 times a day to see if that helps with your symptoms and is much as you can support your diet with frequent small feedings and consider something like Ensure. Call Dr. Loya's office on Sunday for further evaluation and treatment. Return for new or worsening symptoms. I sent prescriptions for the thiamine to [facility] in [place]. Forms: PCP List
[2023-05-03] MEDS ORDERED: iohexoL-300 100 ML VIAL ONE (19:19)
[2023-05-03 19:32] LABS: BASOPHILS # (AUTO) 0.1 10^3/uL (0.0-0.1); BASOPHILS % (AUTO) 1.5 %; EOSINOPHILS # (AUTO) 0.2 10^3/uL (0.0-0.7); HCT - HEMATOCRIT 39.9 % (37.0-47.0); HGB - HEMOGLOBIN 13.8 g/dL (12.0-16.0); LYMPHOCYTES # (AUTO) 2.5 10^3/uL (1.5-3.5); LYMPHOCYTES % (AUTO) 41.8 %; MEAN CORPUSCULAR HEMOGLOBIN 32.3 pg (27.0-31.0); MEAN CORPUSCULAR HGB CONC 34.6 g/dL (32.0-36.0); MEAN CORPUSCULAR VOLUME 93.4 fL (81.0-99.0); MEAN PLATELET VOLUME 8.8 fL (7.9-10.8); MONOCYTES # (AUTO) 0.6 10^3/uL (0.0-1.0); MONOCYTES % (AUTO) 9.6 %; NEUTROPHILS # (AUTO) 2.6 10^3/uL (1.5-6.6); NEUTROPHILS % (AUTO) 43.9 %; PLT - PLATELET COUNT 178 10^3/uL (130-450); RED BLOOD COUNT 4.27 10^6/uL (4.20-5.40); RED CELL DISTRIBUTION WIDTH 13.5 % (12.0-15.0); WHITE BLOOD COUNT 5.9 x10^3/uL (4.8-10.8)
[2023-05-03 19:39] LABS: PT - PROTHROMBIN TIME 48.9 secs (9.9-12.6)
[2023-05-03 19:53] LABS: ALBUMIN 3.9 g/dL (3.2-5.5); ALBUMIN/GLOBULIN RATIO 1.6 (1.0-2.2); CALCIUM 9.2 mg/dL (8.5-10.3); CREATININE 0.9 mg/dL (0.6-1.3); POTASSIUM 3.3 mmol/L (3.5-4.5); TOTAL PROTEIN 6.4 g/dL (6.4-8.9)
--- NOTE | 2023-05-03 20:00 | CT Report ---
PROCEDURE: Head W/O Stroke Protocol INDICATIONS: Neuro deficit, acute, stroke suspected TECHNIQUE: Noncontrast 4.5 mm thick angled axial sections acquired from the foramen magnum to the vertex, with c oronal reformats. For radiation dose reduction, the following was used: automated exposure control, adjustment of mA and/or kV according to patient size. COMPARISON: None. FINDINGS: Image quality: Excellent. CSF spaces: Basal cisterns are patent. No extra-axial fluid collections. Ventricles are normal in size and shape. Brain: No midline shift. No intracranial masses or hemorrhage. Quiñonez-white matter interface is norm al. Leukoaraiosis, commonly caused by chronic small vessel ischemic disease. Age-related volume loss . Skull and face: Calvarium and visualized facial bones are intact, without suspicious lesions. Sinuses: Visualized sinuses and mastoids are clear. IMPRESSION: No acute intracranial pathology Above discussed with Harry Gomes MD at 7:58 PM on 05/03/2023. This study fulfills neurological imaging criteria for inclusion or exclusion of acute stroke therapie s based on available published neurological imaging guidelines. Reviewed by: Jose Priest MD on 05/03/2023 7:58 PM PST Approved by: Jose Priest MD on 05/03/2023 7:58 PM PST Station ID: [id number]
--- NOTE | 2023-05-03 20:03 | CT Report ---
PROCEDURE: Angio Head/Neck INDICATIONS: CVA sx TECHNIQUE: After the administration of intravenous contrast, 1 mm thick sections acquired from the aortic arch t hrough the [place] of [place]. 3-dimensional qnzersg-jzuyvuolf-riagwhcdor (MIP) and/or volume renderin g reformats were acquired of the central intracranial vasculature and neck separately. For radiation dose reduction, the following was used: automated exposure control, adjustment of mA and/or kV acco rding to patient size. CONTRAST: Isovue COMPARISON: Same day head CT FINDINGS: Image quality: Diagnostic. HEAD CT: CSF Spaces: Basal cisterns are patent. No extra-axial fluid collections. Ventricles are normal in size and shape. Brain: The brain is within normal limits for age and scanning technique. Skull and face: Calvarium and visualized facial bones appear intact, without suspicious lesions. Sinuses: Visualized sinuses and mastoids are clear. HEAD CT ANGIOGRAPHY: Anterior circulation: Intracranial internal carotid arteries are normal in size and flow. The flow within the paired anterior cerebral arteries is normal and symmetric. The flow within the middle cer ebral arteries is normal and symmetric. The anterior communicating artery is seen. No aneurysms are seen. Posterior circulation: Visualized portions of the vertebral arteries demonstrate normal caliber, and join to form a normal appearing basilar artery. Flow within the posterior cerebral arteries is norm al and symmetric. No aneurysms are seen. NECK CT ANGIOGRAPHY: Carotid system: The great vessels demonstrate a conventional anatomy as they arise from the aortic a rch. The origins of the common carotid arteries appear patent. The common carotid arteries demonstr ate normal caliber and courses. The bifurcation regions are both widely patent. The internal caroti d arteries demonstrate normal calibers and courses. Posterior circulation: The origins of the vertebral arteries both appear widely patent. The more kauffman perior extracranial portions of both vertebral arteries also demonstrate normal courses and calibers. They join to form a normal appearing basilar artery. Soft tissues: Heterogeneous, enlarged thyroid Bones: No suspicious bony lesions. Visualized cervical spine appears normally aligned. IMPRESSION: No significant intracranial arterial abnormality is seen. No significant abnormality is seen within the arteries of the neck. Heterogeneous, enlarged thyroid most consistent with thyroiditis. Consider outpatient thyroid ultras ound for complete characterization. Findings were discussed with provider at time of dictation. The estimate of stenosis included in the report of the imaging study was calculated using the NASCET method Reviewed by: Jose Priest MD on 05/03/2023 8:02 PM PST Approved by: Jose Priest MD on 05/03/2023 8:02 PM PST Station ID: [id number]
[2023-05-03] MEDS: iohexoL-300 100 ML VIAL IVP ONE (20:14)
[2023-05-03] MEDS ORDERED: THIAMINE 100 MG/1 ML 2 ML MDV ONE (20:14)
[2023-05-03] MEDS: THIAMINE INJ 100 MG in SODIUM CHLORIDE 0.9% 50 ML IV STA (20:19)
--- NOTE | 2023-05-03 20:25 | CT Report ---
PROCEDURE: Chest W INDICATIONS: Progressive weight loss and early satiety CONTRAST: 100mL Omni 300 TECHNIQUE: After the administration of intravenous contrast, a CT scan of the chest was performed. Images were recorded and evaluated at appropriate window settings. Reformats: axial MIP of the chest, coronal and sagittal. For radiation dose reduction, the following was used: automated exposure control, adjustme nt of mA and/or kV according to patient size. COMPARISON: None. FINDINGS: Image quality: Diagnostic. Chest wall and lower neck: Thyroid is enlarged with heterogeneous attenuation. No axillary or supracl avicular adenopathy by size. Lungs and pleura: No consolidation. No pleural effusions. No pneumothorax. 1.2 cm left upper lobe no dule and popcorn calcification low-attenuation, favoring a hamartoma. Branching opacities with low-a ttenuation in the left upper lobe (series 506, image 37). Mediastinum: Heart size is enlarged. No pericardial effusion. No large vessel abnormality. No mediast inal adenopathy by size criteria. Three-vessel coronary calcifications. Sternotomy and aortic valve replacement. Bones: No aggressive osseous abnormality. Upper Abdomen: Unremarkable. IMPRESSION: Branching opacities with low-attenuation in the left upper lobe. Findings could represent mucus impac tion, less likely ABPA. Recommend three-month follow-up. Enlarged, heterogeneous thyroid, which may indicate thyroiditis. Correlate with thyroid labs and cons ider outpatient thyroid ultrasound, if not performed in the past. Reviewed by: Jose Priest MD on 05/03/2023 8:24 PM PST Approved by: Jose Priest MD on 05/03/2023 8:24 PM PST Station ID: [id number]
--- NOTE | 2023-05-03 20:28 | CT Report ---
PROCEDURE: Abdomen/Pelvis W INDICATIONS: Progressive weight loss and early satiety CONTRAST: 100mL Omni 300 TECHNIQUE: After the administration of intravenous contrast, a CT scan of the abdomen and pelvis was performed. Images were recorded and evaluated at appropriate window settings. Reformats: coronal and sagittal. F or radiation dose reduction, the following was used: automated exposure control, adjustment of mA and /or kV according to patient size. COMPARISON: None. FINDINGS: Image quality: Diagnostic. Suboptimal due to contrast timing, which was tailored for same day CTA of the head. Lower chest: Unremarkable. Liver: Hepatic steatosis. Gallbladder and biliary tree: Gallbladder sludge versus small stones. No wall thickening. No biliary dilation. Spleen: No splenomegaly. Pancreas: No pancreatic ductal dilation. Adrenals: No adrenal nodule. Kidneys and ureters: No hydronephrosis. No renal cystic lesion which requires follow up. No solid mas s. Stomach, bowel and peritoneum: No bowel distension. No pathologic free fluid. Diverticulosis without evidence of diverticulitis. Lymph nodes: No central or retroperitoneal adenopathy. Vessels: No infrarenal aortic aneurysm. PELVIS Reproductive organs: Unremarkable. Bladder: No abnormal wall thickening, accounting for underdistention. Pelvic lymph nodes: No pelvic adenopathy by size criteria. Bones: No aggressive osseous abnormality. Other: No significant ventral or inguinal hernia. IMPRESSION: No findings to explain the patient's weight loss and early satiety. Consider screening colonoscopy in this setting, if not up to date. Gallbladder sludge versus small stones. No evidence of cholecystitis. Colonic diverticulosis without evidence of diverticulitis. Reviewed by: Jose Priest MD on 05/03/2023 8:26 PM PST Approved by: Jose Priest MD on 05/03/2023 8:26 PM PST Station ID: [id number]
[2023-05-03 21:41] VITALS: BP 176/73; O2SAT 100
== END 2023-05-03 21:31 | disposition home or self-care (01) ==
LOC: ED 18:50
DX: R47.01 Aphasia (principal); R11.2 Nausea with vomiting, unspecified; E11.9 Type 2 diabetes mellitus without complications; Z79.84 Long term (current) use of oral hypoglycemic drugs; I10 Essential (primary) hypertension; Z95.5 Presence of coronary angioplasty implant and graft; Z79.01 Long term (current) use of anticoagulants
CPT/HCPCS: 36415; 70450; 70496; 70498; 71260; 74177; 80053; 83690; 84425; 85025; 85610; 93005; 96365; 99284; J3411; J7040; Q9967; 84443

== ENCOUNTER 2023-06-11 10:57 | Outpatient (CLI) | payer MEDICARE, OTHER ==
[2023-06-11] MEDS ORDERED: iohexoL-300 150 ML BOTTLE ONE (11:27)
[2023-06-11 11:33] LABS: CREATININE 0.8 mg/dL (0.6-1.3)
[2023-06-11] MEDS: iohexoL-300 150 ML BOTTLE IVP ONE (12:37)
--- NOTE | 2023-06-12 08:56 | CT Report ---
PROCEDURE: Chest W INDICATIONS: ABN CT CHEST CONTRAST: Omni 300 100ml TECHNIQUE: After the administration of intravenous contrast, a CT scan of the chest was performed. Images were recorded and evaluated at appropriate window settings. Reformats: axial MIP of the chest, coronal and sagittal. For radiation dose reduction, the following was used: automated exposure control, adjustme nt of mA and/or kV according to patient size. COMPARISON: CT chest 05/03/2023 FINDINGS: Image quality: Diagnostic. Chest wall and lower neck: Enlarged heterogeneous thyroid with multiple nodules. No axillary or supra clavicular adenopathy by size. Lungs and pleura: No consolidation. No pleural effusions. No pneumothorax. Stable 1.2 cm left upper lobe nodule with low attenuation and calcifications, favoring hamartoma. Again seen branching opacit y within the left upper lobe. Multiple scattered micronodules. Mediastinum: Heart size is normal. Severe multivessel coronary calcifications. No pericardial effusio n. No large vessel abnormality. No mediastinal adenopathy by size criteria. Bones: No aggressive osseous abnormality. Median sternotomy wires. Multilevel degenerative changes of the spine. Upper Abdomen: Unremarkable. IMPRESSION: 1.Similar appearance of branching opacity within the left upper lobe with low-attenuation. Differenti al includes mucus impaction or ABPA. Recommend 3-6 month follow-up exam to assess stability. 2.Enlarged heterogeneous thyroid with multiple nodules. Recommend thyroid ultrasound for further eval uation if not previously obtained. 3.Left upper lobe nodule favored to represent a hematoma. Multiple scattered micronodules are noted. 4.Severe multivessel coronary artery calcifications. Reviewed by: Maldonado Thomas MD on 06/12/2023 8:54 AM PDT Approved by: Maldonado Thomas MD on 06/12/2023 8:54 AM PDT Station ID: [id number]
== END 2023-06-11 10:58 | disposition home or self-care (01) ==
LOC: LAB 10:57
PROVIDERS: ATTEND Nurse Practitioner
DX: R91.8 Other nonspecific abnormal finding of lung field (principal); E01.0 Iodine-deficiency related diffuse (endemic) goiter; I25.10 Atherosclerotic heart disease of native coronary artery without angina pectoris
CPT/HCPCS: 36415; 82565; Q9967

== ENCOUNTER 2023-07-05 10:47 | Outpatient (CLI) | payer MEDICARE, OTHER ==
[2023-07-05 10:58] LABS: EOSINOPHILS # (AUTO) 0.3 10^3/uL (0.0-0.7); EOSINOPHILS % (AUTO) 5.9 %; MEAN CORPUSCULAR VOLUME 95.9 fL (81.0-99.0); RED CELL DISTRIBUTION WIDTH 13.3 % (12.0-15.0)
[2023-07-05 11:02] LABS: BASOPHILS # (AUTO) 0.1 10^3/uL (0.0-0.1); BASOPHILS % (AUTO) 1.7 %; HCT - HEMATOCRIT 39.9 % (37.0-47.0); HGB - HEMOGLOBIN 13.7 g/dL (12.0-16.0); LYMPHOCYTES # (AUTO) 2.8 10^3/uL (1.5-3.5); LYMPHOCYTES % (AUTO) 51.4 %; MEAN CORPUSCULAR HEMOGLOBIN 32.9 pg (27.0-31.0); MEAN CORPUSCULAR HGB CONC 34.3 g/dL (32.0-36.0); MEAN PLATELET VOLUME 8.7 fL (7.9-10.8); MONOCYTES # (AUTO) 0.3 10^3/uL (0.0-1.0); MONOCYTES % (AUTO) 4.8 %; PLT - PLATELET COUNT 181 10^3/uL (130-450); RED BLOOD COUNT 4.16 10^6/uL (4.20-5.40); WHITE BLOOD COUNT 5.4 x10^3/uL (4.8-10.8)
[2023-07-05 11:12] LABS: ALBUMIN 3.5 g/dL (3.2-5.5); ALBUMIN/GLOBULIN RATIO 1.3 (1.0-2.2); ALKALINE PHOSPHATASE 62 IU/L (42-121); ALT ALANINE AMINOTRANSFERASE 18 IU/L (10-60); AST ASPARTATE AMINOTRANSFERASE 32 IU/L (10-42); BUN - BLOOD UREA NITROGEN 12 mg/dL (6-20); CALCIUM 9.7 mg/dL (8.5-10.3); CARBON DIOXIDE - CO2 29 mmol/L (21-32); CHLORIDE 102 mmol/L (101-111); CREATININE 0.9 mg/dL (0.6-1.3); CRP - C-REACTIVE PROTEIN < 0.5 mg/dL (<0.5); GFR - MDRD 61 (>89); GLUCOSE 100 mg/dL (74-104); POTASSIUM 3.8 mmol/L (3.5-4.5); SODIUM 139 mmol/L (135-145); TOTAL PROTEIN 6.3 g/dL (6.4-8.9)
== END 2023-07-05 10:48 | disposition home or self-care (01) ==
LOC: LAB 10:47
PROVIDERS: ATTEND Internal Medicine Rheumatology
DX: M06.09 Rheumatoid arthritis without rheumatoid factor, multiple sites (principal); Z79.899 Other long term (current) drug therapy
CPT/HCPCS: 36415; 80053; 85025; 85651; 86140